=== PATIENT | male | born 1965 | race Caucasian/White ===

== ENCOUNTER 2017-01-25 16:25 | Emergency (ER) | payer BC ==
[~2017-01-25] VITALS: Ht 177.8 cm; Wt 89.3 kg
[~2017-01-25 16:25] MED LIST: ACET1TAB25 PO; ALBU18HF2 INH; ALBU2.5V7 AEROSOL; DIPH25TA23 PO; EPIN0.3P3 INJ; FLUT9.9S NS; FURO20TA4 PO; GABA-336 PO; IPRA3AMP INH; LORA10TA62 PO; MOME13HF3 INH; MORP15TA71 PO; PANT40TA27 PO; PRED20TA PO; RANI300T4 PO; TIZA4TAB4 PO; TRAM50TA4 PO; TRAZ-170 PO; TRIA1CAP6 PO; ZAFI20TA13 PO; [UNRECOGNIZED DRUG - CODE] PO; [UNRECOGNIZED DRUG - CODE] PO
[2017-01-25 16:30] VITALS: TEMP 97.6; Ht 177.8 cm; Wt 89.3 kg
--- OUTSIDE RECORDS SUMMARY | 2017-01-25 16:31 | XMS REPORT | Continuity of Care Document ---
Author Author [facility]ifatah [facility] Organization [facility] Address Unknown Phone Unavailable Support Name Relationship Address Phone ABBIE RAM MD Caregiver [address] [place] [address] [place] [id number] MAHIN FERNANDEZ DO Caregiver [address] [place] [address] PAOLA BHAKTA Next Of Kin [address] [facility], [place] [id number] Insurance Providers Payer Name Policy Number Subscriber Name Relationship [facility] [id number] Paola Bhakta 01 Spouse Advance Directives Directive Response Recorded Date/Time Advanced Directives Type None 02/11/15 4:37pm Problems Medical Problems Problem Onset Date Status ASTHMA EXACERBATION Unknown Active Anxiety state Unknown Active Medications Medication Dose Route Sig Days/Qty Instructions Order Date Discontinued Date Status Salmeterol Xinafoate/Fluticasone 1 Disk IH TWICE A DAY 08/24/1001/10 Discontinued Albuterol Sulfate 2.5 Mg IH DAILY 08/24/10 Active Hydrocodone/Acetaminophen 1 Tab PO THREE TIMES A DAY 02/11/15 Active Albuterol Sulfate 1 Puff INH 02/11/15 Active Furosemide 1 Tab PO DAILY 02/11/15 Active Theophylline Anhydrous 1 Tab PO DAILY 02/11/15 Active Prednisone 1 Tab PO THREE TIMES A DAY Take 1 tablet, by mouth, two times a day with meals. 02/11/15 Active Gabapentin 1 Tab PO THREE TIMES A DAY 02/11/15 Active Hydroxyzine HCl 1 Tab PO FOUR TIMES DAILY 02/11/15 Active Cyanocobalamin (Vitamin B-12) 1 Tab PO TWICE A DAY 02/11/15 Active Pyridoxine HCl 2 Tab PO DAILY 02/11/15 Active Cholecalciferol (Vitamin D3) 1 Tab PO TWICE A DAY 02/11/15 Active Epinephrine 10 Syringe SQ NEEDED For ANAPHYLAXIS 10 Qty 02/11/15 Active Social History No social history. Hospital Discharge Instructions No hospital discharge instructions. Plan of Care No plan of care. Functional Status Query Response Date Recorded Physical Hygiene Self February 11, 2015 4:37pm Disabilities None February 11, 2015 4:37pm Devices Used None February 11, 2015 4:37pm Dressing Self February 11, 2015 4:37pm Ambulation Self February 11, 2015 4:37pm Diet Self February 11, 2015 4:37pm Mental Status Alert February 11, 2015 8:04pm Disabilities None February 11, 2015 4:37pm Devices Used None February 11, 2015 4:37pm Physical Hygiene Self February 11, 2015 4:37pm Dressing Self February 11, 2015 4:37pm Ambulation Self February 11, 2015 4:37pm Diet Self February 11, 2015 4:37pm Allergies, Adverse Reactions, Alerts Allergen Type Severity Reaction Status Last Updated Penicillin Allergy Unknown Active 10/10/13 Immunizations Name Given Type Hx Influenza Vaccination Y fall 2013 Historical Hx Influenza Vaccination Y fall 2013 Historical Vital Signs Acute Vital Signs Vital Response Date/Time Temperature (Fahrenheit) 98.3 deg F (96.8 - 99.1) Temperature (Calculated Celsius) 36.92674 degrees C (36.0 - 37.3) Pulse Rate (adult) 106 bpm (60 - 100) Respiratory Rate 27 breaths/min (10 - 20) O2 Sat by Pulse Oximetry 94 % (90 - 100) Blood Pressure 151/62 mm Hg Height 5 ft 11 in Weight 206 lb Body Mass Index 28.0 kg/m^2 Results Test Source Date Result Interp. Ref. Range Comments Alanine Aminotransferase (ALT/SGPT) February 11, 2015 4:48pm 47 U/L N 21- 72 Albumin February 11, 2015 4:48pm 4.6 G/DL N 3.5-5.0 Albumin/Globulin Ratio February 11, 2015 4:48pm 1.6 RATIO N 1.1-2.2 Alkaline Phosphatase February 11, 2015 4:48pm 76 U/L N 38-126 Anion Gap February 11, 2015 4:48pm 14 MEQ/L N 5-15 Aspartate Amino Transf (AST/SGOT) February 11, 2015 4:48pm 29 U/L N 17-59 BUN/Creatinine Ratio February 11, 2015 4:48pm 24 RATIO N 6-26 Band Neutrophils # October 10, 2013 5:00pm 0.0 T/MM3 - Band Neutrophils % October 10, 2013 5:00pm 0.0 % N 0-6 Basophils # (Auto) February 11, 2015 4:48pm 0.1 T/MM3 N 0-0.2 Basophils # (Manual) October 10, 2013 5:00pm 0.0 T/MM3 N 0-0.2 Basophils % (Manual) October 10, 2013 5:00pm 0.0 % N 0-2 Basophils (%) (Auto) February 11, 2015 4:48pm 0.4 % N 0-2 Blood Urea Nitrogen February 11, 2015 4:48pm 24.0 MG/DL H 9-20 Calcium Level February 11, 2015 4:48pm 9.6 MG/DL N 8.4-10.2 Calculated Osmolality February 11, 2015 4:48pm 281 MOSM/KG H 261-280 Carbon Dioxide Level February 11, 2015 4:48pm 29 MEQ/L N 22-30 Chemistry Specimen Hemolysis February 11, 2015 4:48pm < 15 0-25 0-25: No Hemolysis.26-70: Slight Hemolysis - can falsely elevate K and Urine Protein. 71-285: Moderate Hemolysis - can falsely elevate K, Troponin I, CA 19-9, PTH, CSF GLucose, and Urine Protein, and can falsely decrease Phenytoin. 286-999: Gross Hemolysis - can falsely elevate K, Troponin I, CA 19-9, PTH, CSF Glucose, and Urine Protine, and can falsely decrease Phenytoin. Recommend specimen recollection. Chloride Level February 11, 2015 4:48pm 101 MEQ/L N 98-107 Creatinine February 11, 2015 4:48pm 1.0 MG/DL N 0.8-1.5 Eosinophils # (Auto) February 11, 2015 4:48pm 0.1 T/MM3 N 0-0.5 Eosinophils # (Manual) October 10, 2013 5:00pm 0.3 T/MM3 N 0-0.5 Eosinophils % (Manual) October 10, 2013 5:00pm 2.0 % N 0-4 Eosinophils (%) (Auto) February 11, 2015 4:48pm 1.2 % N 0-4 Globulin February 11, 2015 4:48pm 2.8 G/DL N 2.4-3.6 Glomerular Filtration Rate Calc February 11, 2015 4:48pm 79 - Glucose Level February 11, 2015 4:48pm 98 MG/DL N 75-110 Hematocrit February 11, 2015 4:48pm 39.2 % L 41-53 Hemoglobin February 11, 2015 4:48pm 13.9 GM/DL N 13.5-17.5 Icterus Index February 11, 2015 4:48pm < 2 0-7 Immature Granulocyte # (Auto) February 11, 2015 4:48pm 0.04 T/MM3 H 0.00- 0.03 Immature Granulocyte % (Auto) February 11, 2015 4:48pm 0.4 % N 0.0-0.5 Lymphocytes # (Auto) February 11, 2015 4:48pm 2.6 T/MM3 N 1-4.8 Lymphocytes # (Manual) October 10, 2013 5:00pm 2.0 T/MM3 N 1-4.8 Lymphocytes % (Manual) October 10, 2013 5:00pm 13.0 % L 23-45 Lymphocytes (%) (Auto) February 11, 2015 4:48pm 23.3 % N 23-45 Magnesium Level February 11, 2015 4:48pm 2.2 MG/DL N 1.6-2.3 Mean Corpuscular Hemoglobin February 11, 2015 4:48pm 30.0 UUG N 26-34 Mean Corpuscular Hemoglobin Concent February 11, 2015 4:48pm 35.5 GM/DL N 31-37 Mean Corpuscular Volume February 11, 2015 4:48pm 84.7 UM3 N 80-100 Mean Platelet Volume February 11, 2015 4:48pm 9.8 UM3 N 9.4-12.4 Monocytes # (Auto) February 11, 2015 4:48pm 1.1 T/MM3 H 0-0.8 Monocytes # (Manual) October 10, 2013 5:00pm 0.5 T/MM3 N 0-0.8 Monocytes % (Manual) October 10, 2013 5:00pm 3.0 % N 0-9.0 Monocytes (%) (Auto) February 11, 2015 4:48pm 9.9 % H 0-9.0 Neutrophils # (Auto) February 11, 2015 4:48pm 7.3 T/MM3 N 1.8-7.7 Neutrophils # (Manual) October 10, 2013 5:00pm 12.1 T/MM3 H 1.8-7.7 Neutrophils % (Manual) October 10, 2013 5:00pm 78.0 % H 33-66 Neutrophils (%) (Auto) February 11, 2015 4:48pm 64.8 % N 33-66 Platelet Count February 11, 2015 4:48pm 311 T/MM3 N 130-400 Potassium Level February 11, 2015 4:48pm 3.6 MEQ/L N 3.6-5 RDW Standard Deviation February 11, 2015 4:48pm 42.3 FL N 36.9-50.2 Reactive Lymphocytes # October 10, 2013 5:00pm 0.6 T/MM3 H 0-0 Reactive Lymphocytes % October 10, 2013 5:00pm 4.0 % H 0-0 Red Blood Count February 11, 2015 4:48pm 4.63 M/MM3 N 4.50-5.90 Sodium Level February 11, 2015 4:48pm 144 MEQ/L N 134-144 Total Bilirubin February 11, 2015 4:48pm 0.60 MG/DL N 0.20-1.30 Total Protein February 11, 2015 4:48pm 7.4 G/DL N 6.3-8.2 Turbidity February 11, 2015 4:48pm 26 H 0-20 0-21: Turbidity not present.22-999: Turbidity present - Gross turbidity can falsely decrease Lipase and Triglycerides. White Blood Count February 11, 2015 4:48pm 11.2 T/MM3 H 4.5-11.0 Procedures No known history of procedures. Encounters Encounter Location Date/Time Departed Emergency Room [facility] 02/11/15 4:36pm Recent Diagnosis
--- OUTSIDE RECORDS SUMMARY | 2017-01-25 16:34 | XMS REPORT | Continuity of Care Document ---
Author Author [facility] Organization [facility] Address Unknown Phone Unavailable Support Name Relationship Address Phone MAHIN FERNANDEZ DO Caregiver [address] [place] [address] Unavailable BIANCA CROSS MD Caregiver [address] [place] [address] [place] [address] Unavailable PAOLA BHAKTA Next Of Kin [address] [place] [address] Insurance Providers Guarantor Bob Bhakta Address [address] [place] [address] Email [email or web address] Payer [facility] Policy Number [id number] Subscriber's Name Paola Bhakta Relationship 01 Spouse Group Number [id number] Chief Complaint and Reason for Visit Chief Complaint Dyspnea/Respdistress Reason for Visit [id number] EXACERBATION Problems Active Problems Medical Problem Onset Date Status ASTHMA EXACERBATION Unknown Acute Allergic to IV contrast Unknown Acute Anxiety Unknown Anxiety state Unknown Acute Low back pain Unknown Acute Sinusitis Unknown Acute Spondylolisthesis at L4-L5 level Unknown Acute Viral syndrome Unknown Acute Past Problems Medical Problem Onset Date Anxiety Unknown Asthma exacerbation Unknown Asthma with severe asthma attack Unknown Chest wall pain Unknown Concussion Unknown Exacerbation of asthma Unknown Exacerbation of asthma Unknown Exacerbation of asthma Unknown Head trauma Unknown Intracranial bleed Unknown Pneumonia Unknown Pneumonia Unknown Respiratory disorder, unspecified Unknown Viral gastroenteritis Unknown Medications Current Home Medications Medication Dose Units Route Directions Days Qty Instructions Start Date Acetaminophen With Codeine (Acetaminophen-Cod #3 Tablet) 300-30 Tablet 1 Tab Oral Twice A Day 01/19/17 Albuterol Sulfate 2.5 Mg/3 Ml Vial.neb 2.5 Mg Aerosol Tx. As Needed as needed for Shortness Of Air/Wheezing 01/19/17 Albuterol Sulfate (Ventolin Hfa 90 Mcg/Actuation) 18 Gm Hfa.aer.ad 2 Puff Inhalation Every 4-6 Hours as needed for Shortness Of Air 02/02/16 Diphenhydramine Hcl 25 Mg Tablet 50 Mg Oral Four Times Daily Epinephrine (Epipen 2-Alexis) 0.3 Mg/0.3 Ml Auto.injct 0.3 Mg Injection As Needed 06/09/15 Fluticasone Propionate (Flonase Allergy Relief 50 Mcg/Actuation Nasal) 9.9 Ml Quitman.susp 2 Quitman Nasal Daily 12/06/16 Furosemide 20 Mg Tablet 20 Mg Oral Daily 10/05/15 Gabapentin 100 Mg Capsule 200 Mg Oral Twice A Day 12/06/16 Ipratropium/Albuterol Sulfate (Iprat-Albut 0.5-3(2.5) Mg/3 Ml) 3 Ml Ampul.neb 1 Vial Inhalation Four Times Daily 12/24/15 Loratadine (Claritin) 10 Mg Tablet 10 Mg Oral Daily 12/06/16 Mometasone/Formoterol (Dulera 200 Mcg/5 Mcg Inhaler) 13 Gm Hfa.aer.ad 2 Puff Inhalation Twice A Day 07/13/16 Morphine Sulfate 15 Mg Tablet 7.5 Mg Oral Twice A Day 12/06/16 Pantoprazole Sodium 40 Mg Tablet.dr 40 Mg Oral Daily 09/06/16 Prednisone 20 Mg Tablet 40 Mg Oral Daily 01/19/17 Ranitidine Hcl 300 Mg Tablet 300 Mg Oral Bedtime 12/06/16 Testosterone (Testim) 5 Gm Gel..gram. 50 Mg Oral Daily 12/06/16 Theophylline Anhydrous (Theophylline) 600 Mg Tablet.er 600 Mg Oral Daily 02/11/15 Tizanidine Hcl 4 Mg Tablet 4 Mg Oral Three Times A Day 09/06/16 Tramadol Hcl 50 Mg Tablet 50 Mg Oral Three Times A Day as needed for Pain 12/06/16 Trazodone Hcl 50 Mg Tablet 50 Mg Oral Bedtime 12/06/16 Triamterene/Hydrochlorothiazid (Triamterene-Hctz 37.5-25 Mg Cp) 1 Each Capsule 1 Tab Oral Daily 09/06/16 Zafirlukast (Accolate) 20 Mg Tablet 40 Mg Oral Twice A Day Past Home Medications Medication Directions Ordered Status Azithromycin (Zithromax) 250 Mg Tablet, 1 Tab Oral Daily 06/18/15 Discontinued Epinephrine (Epipen 2-Alexis) 0.3 Mg/0.3 Ml Auto.injct, 10 Syringe Sub-Q As Needed for Anaphylaxis 02/11/15 Discontinued Gabapentin 600 Mg Tablet, 1 Tab Oral Three Times A Day 02/11/15 Discontinued Hydrocodone/Acetaminophen (Hydrocodon-Acetaminoph 7.5-325) 7.5-325 Tablet, 1 Tab Oral Twice A Day 07/13/16 Discontinued Prednisone 10 Mg Tablet, 10 Mg Oral As Directed 11/13/16 Discontinued Prednisone 10 Mg Tablet, 10 Mg Oral As Directed 03/19/16 Discontinued Prednisone 10 Mg Tablet, 2 Tab Oral Give With Supper 05/07/15 Discontinued Prednisone 10 Mg Tablet, 50 Mg Oral Daily 05/07/15 Discontinued Ranitidine Hcl 300 Mg Tablet, 300 Mg Oral Bedtime 02/02/16 Discontinued Salmeterol Xinafoate/Fluticasone (Advair 500-50 Diskus) 1 Each Disk.w.dev, 1 Disk Inhalation Twice A Day 08/24/10 Discontinued Zafirlukast (Accolate) 20 Mg Tablet, 4 Tab Oral Daily 07/31/15 Discontinued Social History Social History Problem Response Recorded Date/Time Onset Date Status Hx Substance Use No 01/19/2017 5:14pm Not Applicable Not Applicable Hx Alcohol Use Y OCC 01/19/2017 5:14pm Not Applicable Not Applicable Tobacco Usage none 02/18/2015 6:26pm Not Applicable Not Applicable Query Response Start Date Stop Date Smoking Status Never smoker Hospital Discharge Instructions No hospital discharge instructions. Plan of Care Discharge Date 01/19/17 7:10pm Disposition 01 DISCHARGED HOME, SELF-CARE Condition at Discharge Improved Instructions/Education Provided Asthma (ED) Prescriptions See Medication Section Referrals MAHIN FERNANDEZ DO Address: [place] [address] [place] [id number] Care Plan and Goals Physician Care Plan Problem: Exacerbation of asthma Goal: Follow up with primary care provider Instructions: Take medications and follow care plan as discussed/written Functional Status No functional status results. Allergies, Adverse Reactions, Alerts Allergen Type Severity Reaction Status Last Updated Penicillin Allergy Unknown Active 01/19/17 Aspirin Allergy Unknown Active 01/19/17 BEE/WASP STINGS Allergy Unknown ANAPHYLAXIS Active 12/06/16 GUACAMOLE Allergy Severe DYSNEA Active 07/31/15 Immunizations Query Response on File Recorded Date/Time Hx Influenza Vaccination Y fall 201308/05/15 2:30pm Hx Pneumococcal Vaccination Y WITHIN LAST 5 YEARS 08/05/15 2:30pm Hx Influenza Vaccination Y fall 201308/05/15 2:30pm DTaP Vaccine History 200901/19/17 5:14pm Influenza Vaccine Hx 201501/19/17 5:14pm Tdap Vaccine Hx NO BROKEN SKIN 06/08/16 9:23pm Vital Signs Acute Vital Signs Vital Response Date/Time Temperature (Fahrenheit) 97.3 deg F (96.8 - 99.1) 01/19/2017 7:10pm Temperature (Calculated Celsius) 36.22213 degrees C (36.0 - 37.3) 01/19/2017 7:10pm Pulse Rate (adult) 113 bpm (60 - 100) 01/19/2017 7:10pm Respiratory Rate 18 breaths/min (10 - 20) 01/19/2017 7:10pm O2 Sat by Pulse Oximetry 93 % (90 - 100) 01/19/2017 7:10pm Oxygen Flow Rate 10.00 L/min 01/19/2017 6:45pm Blood Pressure 130/68 mm Hg 01/19/2017 7:10pm Blood Pressure 130/68 mm Hg 01/19/2017 7:10pm Height (Feet) 5 feet 01/19/2017 4:28pm Height (Inches) 10.00 inches 01/19/2017 4:28pm Weight (Kilograms) 94.500 kg 01/19/2017 4:28pm Body Mass Index (BMI) 29.0 01/19/2017 4:28pm Results Laboratory Results Test Name Result Units Flags Reference Collection Date/Time Result Date/ Time Comments White Blood Count 9.5 T/MM3 4.5-11.0 11/13/2016 3:55pm 11/13/2016 4: 18pm Red Blood Count 4.68 M/MM3 4.50-5.90 11/13/2016 3:55pm 11/13/2016 4: 18pm Hemoglobin 14.6 GM/DL 13.5-17.5 11/13/2016 3:55pm 11/13/2016 4:18pm Hematocrit 40.9 % L 41-53 11/13/2016 3:55pm 11/13/2016 4:18pm Mean Corpuscular Volume 87.4 UM3 80-100 11/13/2016 3:55pm 11/13/2016 4: 18pm Mean Corpuscular Hemoglobin 31.2 UUG 26-34 11/13/2016 3:55pm 2016 4:18pm Mean Corpuscular Hemoglobin Concent 35.7 GM/DL 31-37 11/13/2016 3:55pm 11/13/2016 4:18pm RDW Standard Deviation 39.1 FL 36.9-50.2 11/13/2016 3:55pm 11/13/2016 4 :18pm Platelet Count 248 T/MM3 130-400 11/13/2016 3:55pm 11/13/2016 4:18pm Mean Platelet Volume 9.7 UM3 9.4-12.4 11/13/2016 3:55pm 11/13/2016 4: 18pm Neutrophils (%) (Auto) 66.3 % H 33-66 11/13/2016 3:55pm 11/13/2016 4: 18pm Lymphocytes (%) (Auto) 23.1 % 23-45 11/13/2016 3:55pm 11/13/2016 4: 18pm Monocytes (%) (Auto) 8.3 % 0-9.0 11/13/2016 3:55pm 11/13/2016 4:18pm Eosinophils (%) (Auto) 1.3 % 0-4 11/13/2016 3:55pm 11/13/2016 4:18pm Basophils (%) (Auto) 0.5 % 0-2 11/13/2016 3:55pm 11/13/2016 4:18pm Immature Granulocyte % (Auto) 0.5 % 0.0-0.5 11/13/2016 3:55pm 2016 4:18pm Absolute Neutrophils (auto) 6.3 T/MM3 1.8-7.7 11/13/2016 3:55pm 2016 4:18pm Absolute Lymphocytes (auto) 2.2 T/MM3 1-4.8 11/13/2016 3:55pm 2016 4:18pm Absolute Monocytes (auto) 0.8 T/MM3 0-0.8 11/13/2016 3:55pm 11/13/2016 4:18pm Absolute Eosinophils (auto) 0.1 T/MM3 0-0.5 11/13/2016 3:55pm 2016 4:18pm Absolute Basophils (auto) 0.1 T/MM3 0-0.2 11/13/2016 3:55pm 11/13/2016 4:18pm Absolute Immature Granulocyte (auto 0.05 T/MM3 H 0.00-0.03 11/13/2016 3: 55pm 11/13/2016 4:18pm Icterus Index < 2 0-7 11/13/2016 3:55pm 11/13/2016 4:25pm Chemistry Specimen Hemolysis < 15 0-25 11/13/2016 3:55pm 11/13/2016 4 :25pm 0-25: Specimen Exhibited No Hemolysis. Turbidity < 20 0-20 11/13/2016 3:55pm 11/13/2016 4:25pm Sodium Level 144 MEQ/L 134-144 11/13/2016 3:55pm 11/13/2016 4:25pm Potassium Level 3.3 MEQ/L L 3.6-5 11/13/2016 3:55pm 11/13/2016 4:25pm Chloride Level 103 MEQ/L 98-107 11/13/2016 3:55pm 11/13/2016 4:25pm Carbon Dioxide Level 28 MEQ/L 22-30 11/13/2016 3:55pm 11/13/2016 4: 25pm Anion Gap 13 MEQ/L 5-15 11/13/2016 3:55pm 11/13/2016 4:25pm Blood Urea Nitrogen 13.0 MG/DL 9-20 11/13/2016 3:55pm 11/13/2016 4: 25pm Creatinine 1.0 MG/DL 0.8-1.5 11/13/2016 3:55pm 11/13/2016 4:25pm BUN/Creatinine Ratio 13 RATIO 6-26 11/13/2016 3:55pm 11/13/2016 4:25pm Glomerular Filtration Rate Calc 78 11/13/2016 3:55pm 11/13/2016 4: 25pm Glucose Level 99 MG/DL 75-110 11/13/2016 3:55pm 11/13/2016 4:25pm Calculated Osmolality 277 MOSM/KG 261-280 11/13/2016 3:55pm 11/13/2016 4:25pm Calcium Level 9.8 MG/DL 8.4-10.2 11/13/2016 3:55pm 11/13/2016 4:25pm Total Bilirubin 0.60 MG/DL 0.20-1.30 11/13/2016 3:55pm 11/13/2016 4: 25pm Alkaline Phosphatase 76 U/L 38-126 11/13/2016 3:55pm 11/13/2016 4:25pm Total Protein 7.0 G/DL 6.3-8.2 11/13/2016 3:55pm 11/13/2016 4:25pm Albumin 4.5 G/DL 3.5-5.0 11/13/2016 3:55pm 11/13/2016 4:25pm Globulin 2.5 G/DL 2.4-3.6 11/13/2016 3:55pm 11/13/2016 4:25pm Albumin/Globulin Ratio 1.8 RATIO 1.1-2.2 11/13/2016 3:55pm 11/13/2016 4 :25pm Aspartate Amino Transf (AST/SGOT) 30 U/L 17-59 11/13/2016 3:55pm 2016 4:25pm Alanine Aminotransferase (ALT/SGPT) 42 U/L 21-72 11/13/2016 3:55pm 06/2017 4:25pm Arterial Blood pH 7.470 H 7.350-7.450 12/06/2016 3:40pm 12/06/2016 3: 53pm Arterial Blood Partial Pressure CO2 41 MMHG 34-45 12/06/2016 3:40pm 3:53pm Arterial Blood pO2 at Patient Temp 62 MMHG L 80-100 12/06/2016 3:40pm 3:53pm Arterial Blood HCO3 30 MEQ/L H 22-26 12/06/2016 3:40pm 12/06/2016 3: 53pm Arterial Blood Total CO2 31.1 MEQ/L H 23-27 12/06/2016 3:40pm 2016 3:53pm Arterial Blood Base Excess 5.6 MMOL/L H -2.0-2.0 12/06/2016 3:40pm 12/06 3:53pm Arterial Blood Oxygen Saturation 93.0 % L 95.0-98.0 12/06/2016 3:40pm 3:53pm Blood Gas Oxygen Percent Given 80 12/06/2016 3:40pm 12/06/2016 3: 53pm Oxygen Delivery Method (LAB) SIMPLE MASK, % 12/06/2016 3:40pm 12/06 3:53pm Adenovirus (PCR) NEGATIVE NEGATIVE 12/28/2016 8:16pm 12/28/2016 9: 54pm Coronavirus Type 229E (PCR) NEGATIVE NEGATIVE 12/28/2016 8:16pm 12/28 9:54pm Coronavirus Type HKU1 (PCR) NEGATIVE NEGATIVE 12/28/2016 8:16pm 12/28 9:54pm Coronavirus Type NL63 (PCR) NEGATIVE NEGATIVE 12/28/2016 8:16pm 12/28 9:54pm Coronavirus Type OC43 (PCR) NEGATIVE NEGATIVE 12/28/2016 8:16pm 12/28 9:54pm Human Metapneumovirus (PCR) NEGATIVE NEGATIVE 12/28/2016 8:16pm 12/28 9:54pm Enterovirus/Rhinovirus (PCR) NEGATIVE NEGATIVE 12/28/2016 8:16pm 9:54pm Influenza Virus Type A (PCR) DETECTED INF A H3 A NEGATIVE 12/28/2016 8: 16pm 12/28/2016 9:54pm Influenza Virus Type B (PCR) NEGATIVE NEGATIVE 12/28/2016 8:16pm 9:54pm Parainfluenza Type 1 (PCR) NEGATIVE NEGATIVE 12/28/2016 8:16pm 2016 9:54pm Parainfluenza Type 2 (PCR) NEGATIVE NEGATIVE 12/28/2016 8:16pm 2016 9:54pm Parainfluenza Type 3 (PCR) NEGATIVE NEGATIVE 12/28/2016 8:16pm 2016 9:54pm Parainfluenza Type 4 (PCR) NEGATIVE NEGATIVE 12/28/2016 8:16pm 2016 9:54pm Respiratory Syncytial Virus (PCR) NEGATIVE NEGATIVE 12/28/2016 8:16pm 12/28/2016 9:54pm Bordetella parapertussis DNA (PCR) NEGATIVE NEGATIVE 12/28/2016 8: 16pm 12/28/2016 9:54pm Chlamydia pneumoniae DNA (PCR) NEGATIVE NEGATIVE 12/28/2016 8:16pm 9:54pm Mycoplasma pneumoniae (PCR) NEGATIVE NEGATIVE 12/28/2016 8:16pm 12/28 9:54pm Procedures Procedure Status Date Provider(s) Airway inhalation treatment Completed 12/29/16 Airway inhalation treatment Completed 11/03/16 Ther/proph/diag iv inf init Completed 11/03/16 Ther/proph/diag inj sc/im Completed 11/03/16 Tx/pro/dx inj new drug addon Completed 11/03/16 Tx/pro/dx inj new drug addon Completed 11/03/16 Tx/pro/dx inj new drug addon Completed 11/03/16 Tx/pro/dx inj new drug addon Completed 11/03/16 Tx/pro/dx inj new drug addon Completed 11/03/16 Tx/pro/dx inj same drug condenser tester Completed 11/03/16 Tx/pro/dx inj same drug condenser tester Completed 11/03/16 Emergency dept visit Completed 11/03/16 EPINEPHRINE MDV 1MG/ML 30ML Completed 11/03/16267089"INJECTION, HYDROMORPHONE, UP TO 4 MG" Completed 11/03/16337627"INJECTION, HYDROMORPHONE, UP TO 4 MG" Completed 11/03/16140306"INJECTION, DIPHENHYDRAMINE HCL, UP TO 50 MG" Completed 11/03/16991480"INJECTION, DIPHENHYDRAMINE HCL, UP TO 50 MG" Completed 11/03/16936431"INJECTION, HEPARIN SODIUM, (HEPARIN LOCK FLUSH), PER Completed 003"INJECTION, LORAZEPAM, 2 MG" Completed 11/03/16609136"INJECTION, METHYLPREDNISOLONE SODIUM SUCCINATE, UP TO Completed 003"INJECTION, MAGNESIUM SULFATE, PER 500 MG" Completed 11/03/16567987"INFUSION, NORMAL SALINE SOLUTION , 250 CC" Completed 11/03/16 545362"ADMINISTERED THROUGH DME, CONCENTRATED FORM, 1 MG" Completed 11/03/16 Comprehen metabolic panel Completed 11/13/16 Complete cbc w/auto diff wbc Completed 11/13/16 Cbt 1st hour Completed 11/13/16 Cbt each addl hour Completed 11/13/16 Cbt each addl hour Completed 11/13/16 Ther/proph/diag iv inf init Completed 11/13/16 Ther/proph/diag inj sc/im Completed 11/13/16 Ther/proph/diag inj sc/im Completed 11/13/16 Tx/pro/dx inj new drug addon Completed 11/13/16 Tx/pro/dx inj new drug addon Completed 11/13/16 Tx/pro/dx inj new drug addon Completed 11/13/16 Tx/pro/dx inj same drug condenser tester Completed 11/13/16 Tx/pro/dx inj same drug condenser tester Completed 11/13/16 Emergency dept visit Completed 11/13/16 EPINEPHRINE MDV 1MG/ML 30ML Completed 11/13/16 EPINEPHRINE MDV 1MG/ML 30ML Completed 11/13/16 845131"INJECTION, HYDROMORPHONE, UP TO 4 MG" Completed 11/13/16 462000"INJECTION, HYDROMORPHONE, UP TO 4 MG" Completed 11/13/16626249"INJECTION, DIPHENHYDRAMINE HCL, UP TO 50 MG" Completed 11/13/16680077"INJECTION, DIPHENHYDRAMINE HCL, UP TO 50 MG" Completed 11/13/16 329885"INJECTION, HEPARIN SODIUM, (HEPARIN LOCK FLUSH), PER Completed 973740"INJECTION, METHYLPREDNISOLONE SODIUM SUCCINATE, UP TO Completed 883294"INJECTION, MAGNESIUM SULFATE, PER 500 MG" Completed 11/13/16 697486"INJECTION, MAGNESIUM SULFATE, PER 500 MG" Completed 11/13/16 187193"INFUSION, NORMAL SALINE SOLUTION , 1000 CC" Completed 11/13/16 3356646% DEXTROSE/WATER (500 ML=1 UNIT) Completed 11/13/16 8879364% DEXTROSE/WATER (500 ML=1 UNIT) Completed 11/13/16 993732"ADMINISTERED THROUGH DME, CONCENTRATED FORM, 1 MG" Completed 11/13/16 477990"ADMINISTERED THROUGH DME, CONCENTRATED FORM, 1 MG" Completed 11/13/16 366822"ADMINISTERED THROUGH DME, CONCENTRATED FORM, 1 MG" Completed 11/13/16 260095"ADMINISTERED THROUGH DME, CONCENTRATED FORM, 1 MG" Completed 11/13/16 377096"ADMINISTERED THROUGH DME, CONCENTRATED FORM, 1 MG" Completed 11/13/16 Withdrawal of arterial blood Completed 12/06/16 Chest x-ray 1 view frontal Completed 12/06/16 Blood gases any combination Completed 12/06/16 Cbt 1st hour Completed 12/06/16 Ther/proph/diag iv inf init Completed 12/06/16 Ther/proph/diag inj sc/im Completed 12/06/16 Ther/proph/diag inj sc/im Completed 12/06/16 Tx/pro/dx inj new drug addon Completed 12/06/16 Tx/pro/dx inj new drug addon Completed 12/06/16 Tx/pro/dx inj same drug condenser tester Completed 12/06/16 Emergency dept visit Completed 12/06/16 EPINEPHRINE MDV 1MG/ML 30ML Completed 12/06/16936823"INJECTION, DIPHENHYDRAMINE HCL, UP TO 50 MG" Completed 12/06/16"INJECTION, DIPHENHYDRAMINE HCL, UP TO 50 MG" Completed 12/06/16"INJECTION, HEPARIN SODIUM, (HEPARIN LOCK FLUSH), PER Completed "INJECTION, KETOROLAC TROMETHAMINE, PER 15 MG" Completed 12/06/16"INJECTION, METHYLPREDNISOLONE SODIUM SUCCINATE, UP TO Completed "INJECTION, MAGNESIUM SULFATE, PER 500 MG" Completed 12/06/165% DEXTROSE/WATER (500 ML=1 UNIT) Completed 12/06/16 Cbt 1st hour Completed 12/12/16 Cbt each addl hour Completed 12/12/16 Ther/proph/diag iv inf init Completed 12/12/16 Ther/proph/diag inj sc/im Completed 12/12/16 Tx/pro/dx inj new drug addon Completed 12/12/16 Tx/pro/dx inj new drug addon Completed 12/12/16 Tx/pro/dx inj new drug addon Completed 12/12/16 Tx/pro/dx inj new drug addon Completed 12/12/16 Tx/pro/dx inj new drug addon Completed 12/12/16 Tx/pro/dx inj new drug addon Completed 12/12/16 Tx/pro/dx inj new drug addon Completed 12/12/16 Tx/pro/dx inj same drug condenser tester Completed 12/12/16 Emergency dept visit Completed 12/12/16 EPINEPHRINE MDV 1MG/ML 30ML Completed 12/12/16624961"INJECTION, HYDROMORPHONE, UP TO 4 MG" Completed 12/12/16"INJECTION, DIPHENHYDRAMINE HCL, UP TO 50 MG" Completed 12/12/16"INJECTION, DIPHENHYDRAMINE HCL, UP TO 50 MG" Completed 12/12/16"INJECTION, LORAZEPAM, 2 MG" Completed 12/12/16"INJECTION, ONDANSETRON HYDROCHLORIDE, PER 1 MG" Completed 12/12/16"INJECTION, METHYLPREDNISOLONE SODIUM SUCCINATE, UP TO Completed "INJECTION, FENTANYL CITRATE, 0.1 MG" Completed 12/12/16"INJECTION, MAGNESIUM SULFATE, PER 500 MG" Completed 12/12/16"INJECTION, MAGNESIUM SULFATE, PER 500 MG" Completed 12/12/165% DEXTROSE/WATER (500 ML=1 UNIT) Completed 12/12/16 6953852% DEXTROSE/WATER (500 ML=1 UNIT) Completed 12/12/16 Airway inhalation treatment Completed 12/21/16 Airway inhalation treatment Completed 12/21/16 Ther/proph/diag iv inf init Completed 12/21/16 Ther/proph/diag iv inf addon Completed 12/21/16 Ther/proph/diag inj sc/im Completed 12/21/16 Tx/pro/dx inj new drug addon Completed 12/21/16 Tx/pro/dx inj new drug addon Completed 12/21/16 Tx/pro/dx inj new drug addon Completed 12/21/16 Tx/pro/dx inj new drug addon Completed 12/21/16 Tx/pro/dx inj new drug addon Completed 12/21/16 Tx/pro/dx inj same drug condenser tester Completed 12/21/16 Tx/pro/dx inj same drug condenser tester Completed 12/21/16 Emergency dept visit Completed 12/21/16 EPINEPHRINE MDV 1MG/ML 30ML Completed 12/21/16"INJECTION, HYDROMORPHONE, UP TO 4 MG" Completed 12/21/16"INJECTION, DIPHENHYDRAMINE HCL, UP TO 50 MG" Completed 12/21/16"INJECTION, DIPHENHYDRAMINE HCL, UP TO 50 MG" Completed 12/21/16"INJECTION, HEPARIN SODIUM, (HEPARIN LOCK FLUSH), PER Completed "INJECTION, LORAZEPAM, 2 MG" Completed 12/21/16"INJECTION, LORAZEPAM, 2 MG" Completed 12/21/16"INJECTION, METHYLPREDNISOLONE SODIUM SUCCINATE, UP TO Completed 02/15/ 17 534658"INJECTION, MAGNESIUM SULFATE, PER 500 MG" Completed 12/21/16 9082452% DEXTROSE/WATER (500 ML=1 UNIT) Completed 12/21/16 Chest x-ray 2vw frontal&latl Completed 12/23/16 Cbt 1st hour Completed 12/23/16 Ther/proph/diag iv inf init Completed 12/23/16 Ther/proph/diag inj sc/im Completed 12/23/16 Tx/pro/dx inj new drug addon Completed 12/23/16 Tx/pro/dx inj new drug addon Completed 12/23/16 Tx/pro/dx inj new drug addon Completed 12/23/16 Tx/pro/dx inj new drug addon Completed 12/23/16 Tx/pro/dx inj same drug condenser tester Completed 12/23/16 Tx/pro/dx inj same drug condenser tester Completed 12/23/16 Tx/pro/dx inj same drug condenser tester Completed 12/23/16 Emergency dept visit Completed 12/23/16 EPINEPHRINE MDV 1MG/ML 30ML Completed 12/23/16064968"INJECTION, HYDROMORPHONE, UP TO 4 MG" Completed 12/23/16509762"INJECTION, HYDROMORPHONE, UP TO 4 MG" Completed 12/23/16089452"INJECTION, DIPHENHYDRAMINE HCL, UP TO 50 MG" Completed 12/23/16074209"INJECTION, DIPHENHYDRAMINE HCL, UP TO 50 MG" Completed 12/23/16628180"INJECTION, DIPHENHYDRAMINE HCL, UP TO 50 MG" Completed 12/23/16412548"INJECTION, HEPARIN SODIUM, (HEPARIN LOCK FLUSH), PER Completed 003"INJECTION, LORAZEPAM, 2 MG" Completed 12/23/16811006"INJECTION, METHYLPREDNISOLONE SODIUM SUCCINATE, UP TO Completed 003"INJECTION, METHYLPREDNISOLONE SODIUM SUCCINATE, UP TO Completed 003"INJECTION, MAGNESIUM SULFATE, PER 500 MG" Completed 12/23/16 9263490% DEXTROSE/WATER (500 ML=1 UNIT) Completed 12/23/16 Chylmd pneum dna amp probe Completed 12/28/16 M.pneumon dna amp probe Completed 12/28/16 Resp virus 12-25 targets Completed 12/28/16 Detect agent nos dna amp Completed 12/28/16 Cbt 1st hour Completed 12/28/16 Cbt each addl hour Completed 12/28/16 Cbt each addl hour Completed 12/28/16 Hydrate iv infusion add-on Completed 12/28/16 Ther/proph/diag iv inf init Completed 12/28/16 Ther/proph/diag inj sc/im Completed 12/28/16 Tx/pro/dx inj new drug addon Completed 12/28/16 Tx/pro/dx inj new drug addon Completed 12/28/16 Tx/pro/dx inj new drug addon Completed 12/28/16 Tx/pro/dx inj new drug addon Completed 12/28/16 Tx/pro/dx inj new drug addon Completed 12/28/16 Tx/pro/dx inj new drug addon Completed 12/28/16 Tx/pro/dx inj new drug addon Completed 12/28/16 Tx/pro/dx inj same drug condenser tester Completed 12/28/16 Emergency dept visit Completed 12/28/16 EPINEPHRINE MDV 1MG/ML 30ML Completed 12/28/16929348"INJECTION, HYDROMORPHONE, UP TO 4 MG" Completed 12/28/16"INJECTION, DIPHENHYDRAMINE HCL, UP TO 50 MG" Completed 12/28/16"INJECTION, DIPHENHYDRAMINE HCL, UP TO 50 MG" Completed 12/28/16"INJECTION, KETOROLAC TROMETHAMINE, PER 15 MG" Completed 12/28/16"INJECTION, LORAZEPAM, 2 MG" Completed 12/28/16"INJECTION, METHYLPREDNISOLONE SODIUM SUCCINATE, UP TO Completed "INJECTION, FENTANYL CITRATE, 0.1 MG" Completed 12/28/16"INJECTION, MAGNESIUM SULFATE, PER 500 MG" Completed 12/28/16224018"INFUSION, NORMAL SALINE SOLUTION , 1000 CC" Completed 12/28/16955017"INFUSION, NORMAL SALINE SOLUTION , 250 CC" Completed 12/28/16378926"ADMINISTERED THROUGH DME, CONCENTRATED FORM, 1 MG" Completed 12/28/16667354"ADMINISTERED THROUGH DME, CONCENTRATED FORM, 1 MG" Completed 12/28/16 Chest x-ray 2vw frontal&latl Completed 01/09/17 Cbt 1st hour Completed 01/09/17 Cbt each addl hour Completed 01/09/17 Cbt each addl hour Completed 01/09/17 Cbt each addl hour Completed 01/09/17 Hydrate iv infusion add-on Completed 01/09/17 Hydrate iv infusion add-on Completed 01/09/17 Hydrate iv infusion add-on Completed 01/09/17 Ther/proph/diag iv inf init Completed 01/09/17 Ther/proph/diag inj sc/im Completed 01/09/17 Ther/proph/diag inj sc/im Completed 01/09/17 Tx/pro/dx inj new drug addon Completed 01/09/17 Tx/pro/dx inj new drug addon Completed 01/09/17 Tx/pro/dx inj new drug addon Completed 01/09/17 Tx/pro/dx inj new drug addon Completed 01/09/17 Tx/pro/dx inj new drug addon Completed 01/09/17 Tx/pro/dx inj same drug condenser tester Completed 01/09/17 Tx/pro/dx inj same drug condenser tester Completed 01/09/17 Tx/pro/dx inj same drug condenser tester Completed 01/09/17 Tx/pro/dx inj same drug condenser tester Completed 01/09/17 Emergency dept visit Completed 01/09/17 EPINEPHRINE MDV 1MG/ML 30ML Completed 01/09/17 EPINEPHRINE MDV 1MG/ML 30ML Completed 01/09/17"INJECTION, HYDROMORPHONE, UP TO 4 MG" Completed 01/09/17"INJECTION, HYDROMORPHONE, UP TO 4 MG" Completed 01/09/17"INJECTION, HYDROMORPHONE, UP TO 4 MG" Completed 01/09/17"INJECTION, DIPHENHYDRAMINE HCL, UP TO 50 MG" Completed 01/09/17"INJECTION, DIPHENHYDRAMINE HCL, UP TO 50 MG" Completed 01/09/17"INJECTION, DIPHENHYDRAMINE HCL, UP TO 50 MG" Completed 01/09/17"INJECTION, DIPHENHYDRAMINE HCL, UP TO 50 MG" Completed 01/09/17"INJECTION, HEPARIN SODIUM, (HEPARIN LOCK FLUSH), PER Completed "INJECTION, LORAZEPAM, 2 MG" Completed 03/06/17 [id number]"INJECTION, METHYLPREDNISOLONE SODIUM SUCCINATE, UP TO Completed [id number]"INJECTION, MAGNESIUM SULFATE, PER 500 MG" Completed 01/09/17 [id number]"INFUSION, NORMAL SALINE SOLUTION , 1000 CC" Completed 01/09/17 [id number]"INFUSION, NORMAL SALINE SOLUTION , 250 CC" Completed 01/09/17 [id number]"ADMINISTERED THROUGH DME, CONCENTRATED FORM, 1 MG" Completed 01/09/17 [id number]"ADMINISTERED THROUGH DME, CONCENTRATED FORM, 1 MG" Completed 01/09/17 Encounters Encounter Location Arrival/Admit Date Discharge/Depart Date Attending Provider Departed Emergency Room [facility] 01/19/17 4:26pm 01/19/17 7: 10pm BIANCA CROSS MD Departed Emergency Room [facility] 01/09/17 7:00pm 01/09/17 10: 25pm BIANCA CROSS MD Departed Emergency Room [facility] 12/28/16 7:16pm 12/28/16 10: 38pm VANIA ALEJANDRO DO Departed Emergency Room [facility] 12/23/16 8:51pm 12/24/16 12: 33am BULMARO ZARAGOZA MD Departed Emergency Room [facility] 12/21/16 3:54am 12/21/16 7: 30am BULMARO ZARAGOZA MD Departed Emergency Room [facility] 12/12/16 4:28pm 12/12/16 8: 57pm JORGE LUIS NUNO DO Departed Emergency Room [facility] 12/06/16 3:20pm 12/06/16 5: 21pm JENNIFER ZELAYA MD Departed Emergency Room [facility] 11/13/16 3:44pm 11/13/16 6: 40pm MACARENA DUARTE MD Departed Emergency Room [facility] 11/03/16 5:50pm 11/03/16 8: 30pm BIANCA CROSS MD Recent Diagnosis
--- NOTE | 2017-01-25 16:38 | NUR ---
SOLU MEDROL IN AT THIS TIME. THROUGH POWER PORT THAT WAS ACCESSED. Addendum: 01/25/17 at 1832 by JESSICA CORRECTION: SOLU MEDROL WAS GIVEN [id number].
--- NOTE | 2017-01-25 16:41 | NUR ---
PROVIDER DR ZELAYA IN TO SEE PATIENT.
--- OUTSIDE RECORDS SUMMARY | 2017-01-25 16:51 | XMS REPORT | Continuity of Care Document ---
Author Author [facility] LIVE Organization [facility] LIVE Address Unknown Phone Unavailable Support Name Relationship Address Phone ABBIE RAM MD Caregiver [address] [place] [address] [place] [phone] MAHIN FERNANDEZ DO Caregiver [address] [place] [address] PAOLA BHAKTA Next Of Kin [address] [facility], [place] [id number] Insurance Providers Payer Name Policy Number Subscriber Name Relationship [facility] [id number] Paola Bhakta 01 Spouse Advance Directives Directive [...] F (96.8 - 99.1) Temperature (Calculated Celsius) [phone] degrees C (36.0 - 37.3) Pulse Rate [...] Encounters Encounter Location Date/Time Departed Emergency Room [facility] 02/11/15 4:36pm Recent Diagnosis
[2017-01-25] MEDS ORDERED: ALBUTEROL/IPRATROPIUM INHAL. 2.5mg-0.5mg/3ml Neb. AEROSOL ONE (17:00)
[2017-01-25] MEDS ORDERED: MAGNESIUM SULFATE IV ONE (17:00)
[2017-01-25] MEDS ORDERED: DiphenhydrAMINE 50 MG/ML INJECTION IV ONE (17:00)
[2017-01-25] MEDS ORDERED: NORMAL SALINE IV ONE (17:00)
[2017-01-25] MEDS: MAGNESIUM SULF 1gm / D5W 100ml 100 ML IV SCH ×2 (17:14→17:25)
[2017-01-25] MEDS ORDERED: EPINEPHRINE 1mg/ml INJECTION AMP IM ONE (17:15)
[2017-01-25 17:18] LABS: BASOPHILS # (AUTO) 0.1 T/MM3 (0-0.2); BASOPHILS % (AUTO) 0.5 % (0-2); EOSINOPHILS # (AUTO) 0.7 T/MM3 (0-0.5); EOSINOPHILS % (AUTO) 6.9 % (0-4); HCT - HEMATOCRIT 42.4 % (41-53); HGB - HEMOGLOBIN 14.8 GM/DL (13.5-17.5); IMMATURE GRANULOCYTE # (AUTO) 0.09 T/MM3 (0.00-0.03); IMMATURE GRANULOCYTE % (AUTO) 0.8 % (0.0-0.5); LYMPHOCYTES # (AUTO) 2.8 T/MM3 (1-4.8); LYMPHOCYTES % (AUTO) 26.2 % (23-45); MEAN CORPUSCULAR HGB 30.8 UUG (26-34); MEAN CORPUSCULAR HGB CONC(MCHC 34.9 GM/DL (31-37); MEAN CORPUSCULAR VOLUME 88.3 UM3 (80-100); MEAN PLATELET VOLUME 9.4 UM3 (9.4-12.4); MONOCYTES # (AUTO) 0.8 T/MM3 (0-0.8); MONOCYTES % (AUTO) 7.1 % (0-9.0); NEUTROPHILS #(AUTO)-ABSOLUTE 6.2 T/MM3 (1.8-7.7); NEUTROPHILS % (AUTO) 58.5 % (33-66); WBC - WHITE BLOOD COUNT 10.6 T/MM3 (4.5-11.0)
[2017-01-25 17:29] LABS: ALBUMIN 4.4 G/DL (3.5-5.0); ALBUMIN/GLOBULIN RATIO 1.6 RATIO (1.1-2.2); ALKALINE PHOSPHATASE 91 U/L (38-126); ALT (SGPT) 84 U/L (21-72); ANION GAP 11 MEQ/L (5-15); AST (SGOT) 46 U/L (17-59); BUN/CREATININE RATIO 17 RATIO (6-26); CALCIUM 9.5 MG/DL (8.4-10.2); CHLORIDE 101 MEQ/L (98-107); CO2 - CARBON DIOXIDE 30 MEQ/L (22-30); CREATININE 0.9 MG/DL (0.8-1.5); GLOMERULAR FILTRATION RATE 89; GLUCOSE 97 MG/DL (75-110); POTASSIUM 3.7 MEQ/L (3.6-5); SODIUM 142 MEQ/L (134-144); TOTAL PROTEIN 7.2 G/DL (6.3-8.2)
[2017-01-25 17:53] LABS: INFLUENZA A AG SCREEN NEGATIVE (NEGATIVE); INFLUENZA B AG SCREEN NEGATIVE (NEGATIVE)
--- NOTE | 2017-01-25 18:43 | NUR ---
PROVIDER DR ZELAYA IN ROOM TALKING TO PATIENT AND SPOUSE.
--- NOTE | 2017-01-25 18:56 | NUR ---
NAOMY ZELAYA WAS IN ROOM FOR 15 MIN TALKING TO PATIENT AND FAMILY. AFTER DR ZELAYA LEFT ROOM, THIS RN WENT INTO ROOM. SPOUSE OF PATIENT STATED, "WELL, I GUESS WE WON'T BE COMING BACK, THAT DOCTOR WAS VERY AGGRESSIVE TO ME AND ACTED LIKE HE KNEW EVERYTHING. HE DOES NOT KNOW HOW TO CARE FOR FLAKITO, IS HE NEW? WE NEED TO LEAVE AND GO TO [place] TO GET THIS TAKEN CARE OF". PATIENT STATED, "JUST PULL THE PORT OUT AND WE WILL BE OUT OF HERE". THIS RN OFFERED TO CALL LITHOGRAPHIC ARTIST. PATRICIO COOK WAS CALLED AND CAME DOWN TO TALK TO SPOUSE OF PATIENT IN THE LOBBY. PATIENT DID NOT SIGN THE AMA FORM.
[2017-01-25 19:02] VITALS: BP 163/91; O2SAT 95
--- NOTE | 2017-01-25 19:54 | ERPDOC ---
Departure Disposition Decision Date: Jan 25, 2017 Disposition Decision Time: 20:10 Disposition: 07 AGAINST MEDICAL ADVICE Impression Impression Impression: Primary Impression: ASTHMA EXACERBATION Severity: Moderate Condition: Against Medical Advice Seen By: Physician only Referrals: MAHIN FERNANDEZ DO (Family) Problems/Meds/Labs Reviewed?: Yes Medications reviewed and manag: Yes Follow up care ordered?: Yes HPI - Dyspnea General Chief Complaint: Dyspnea/Respdistress Stated Complaint: DIFFICULTY BREATHING Time Seen by Provider: 16:43 HPI - Dyspnea Initial Comments 51-year-old male presents with respiratory distress. Patient has history of reactions to allergens with wheezing, respiratory distress, and anxiety. He has had several hospital admissions previously for this. He states that today he was outside, was exposed to some sort of allergy which set off his breathing and he needs to be given breathing treatments. He is well known to this ER, has been through multiple times with similar episodes. There is a "Chrisplan" which is been used previously and in treating his respiratory issues. Allergies: Coded Allergies: Penicillins (Verified Allergy, Unknown, 01/25/17) aspirin (Verified Allergy, Unknown, 01/25/17) Uncoded Allergies: GUACAMOLE (Allergy, Severe, DYSNEA, 07/31/15) BEE/WASP STINGS (Allergy, Unknown, ANAPHYLAXIS, 12/06/16) Past History Patient Medical History Problem List Updates: No new update Patient Surgical History Port-Placement. Past Medical History Respiratory: asthma Musculoskeletal: back pain Psychological: anxiety Surgical History Denies Surgeries General: other Family History Family PMH: FOUND: other Vaccines Hx Influenza Vaccination: Yes (fall 2013) Hx Pneumococcal Vaccination: Yes (WITHIN LAST 5 YEARS) Social History Does patient use chewing tobac: No Second Hand Exposure: No Substance Use Type: does not use Alcohol Intake: none Marital Status: Sexuality: female partner Housing: house Household Members: spouse Service: No Current Occupational Status: employed Occupational Hazard: No Review of Systems Unable to Obtain Comments On initial evaluation, patient denies any other issues beyond respiratory. All other Systems All Other Systems: Reviewed and Negative Physical Exam General General Nourishment: well developed, appears stated age, adult Distress Description Patient had normal speech pattern in conversation, but when not speaking had prolonged expiration with audible breath sounds.. Vitals and Pain First Documented Vital Signs Date Time Temp Pulse Resp B/P Pulse Ox O2 Delivery O2 Flow Rate FiO2 01/25/17 16:30 97.6 104 20 152/90 96 Room Air Weight: Kilograms: 89.300 Height (feet): 5 Height (inches): 10.00 Triage Pain Scale: Normal Exams: Head: Normocephalic w/o trauma CV: Regular rate and rhythm (patient is tachycardic, otherwise has regular rate.), without murmur or gallop, Pulses 2+ all extremities, capillary refill, < 2 seconds all ext., no pedal edema noted Abdomen: Bowel sounds positive, soft, non-tender, non-distended, no hepatosplenomegaly, masses or bruits noted Neurologic: Patient is alert, and oriented, cranial nerves, motor/sensory/ cerebellar, to observation Psychiatric: Patient exhibits, appropriate attention, emotion and affect Respiratory (brief) Comments No inspiratory wheeze or crackle heard. Expiration patient has air trapping with upper airway groan. These are not typical wheezes. Differential Diagnoses Considering: Acute Bronchitis, Acute Respiratory Failure, Asthma Exacerbation, COPD Exacerbation, Croup, Hyperventilation, Influenza, Pneumonia, Pneumothorax, Pulmonary Edema, Pulmonary Embolus, Other (anxiety) Progress Results/Orders Orders Procedure Category Date Status Time Cmp - Comprehensive LAB 01/25/17 Complete Metabolic 16:46 Blood Gas, Arterial - LAB 01/25/17 Complete ABG 16:46 Cbc W/Auto LAB 01/25/17 Complete Diff-Reflex Manual 16:46 Blood Culture ARIELLE 01/25/17 In Process 16:46 D-Dimer LAB 01/25/17 Complete 16:46 Troponin I W LAB 01/25/17 Complete Hemolysis Index 16:46 Ua, Dip Wreflex LAB 01/25/17 [employer] 16:46 Influenza A/B Screen LAB 01/25/17 Complete 16:46 Iv Lock (Ed Only) EDM 01/25/17 Transmitted 16:46 Albuterol/Ipratropium PHA 01/25/17 Complete (Duoneb) 17:00 Diphenhydramine PHA 01/25/17 Complete (Benadryl) 17:00 Methylprednisolone PHA 01/25/17 Complete Sod Succ (Solu-Medrol 17:00 Magnesium Sulfate PHA 01/25/17 Complete (Magnesium Sulfate) 17:00 Oxygen Administration EDM 01/25/17 Transmitted 16:46 Heliox Therapy RT 3/22/17 Transmitted 16:46 Magnesium Sulf 1gm / PHA 01/25/17 Complete D5w 100ml (Magnesiu 17:15 Lactate - Lactic Acid LAB 01/25/17 Complete Epinephrine PHA 01/25/17 Complete (Adrenalin) 17:15 Lab Results Laboratory Tests Test 01/25/17 16:39 01/25/17 17:10 01/25/17 17:11 01/25/17 17:30 Arterial Blood pH 7.470 Arterial Blood Partial Pressure CO2 43MMHG Arterial Blood pO2 at Patient Temp 55MMHG Arterial Blood HCO3 31MEQ/L Arterial Blood Total CO2 32.6MEQ/L Arterial Blood Oxygen Saturation 90.0% Arterial Blood Base Excess 6.8MMOL/L Oxygen Delivery Method (LAB) Room air Blood Gas Oxygen Liter Flow Blood Gas Oxygen Percent Given Blood Gas Vent Rate Blood Gas Tidal Volume ML Plasma Lactate 1.6MMOL/L White Blood Count 10.6T/MM3 Red Blood Count 4.80M/MM3 Hemoglobin 14.8GM/DL Hematocrit 42.4% Mean Corpuscular Volume 88.3UM3 Mean Corpuscular Hemoglobin 30.8UUG Mean Corpuscular Hemoglobin Concent 34.9GM/DL RDW Standard Deviation 40.9FL Platelet Count 239T/MM3 Mean Platelet Volume 9.4UM3 Immature Granulocyte % (Auto) 0.8% Neutrophils (%) (Auto) 58.5% Lymphocytes (%) (Auto) 26.2% Monocytes (%) (Auto) 7.1% Eosinophils (%) (Auto) 6.9% Basophils (%) (Auto) 0.5% Absolute Immature Granulocyte (auto 0.09T/MM3 Absolute Neutrophils (auto) 6.2T/MM3 Absolute Lymphocytes (auto) 2.8T/MM3 Absolute Monocytes (auto) 0.8T/MM3 Absolute Eosinophils (auto) 0.7T/MM3 Absolute Basophils (auto) 0.1T/MM3 D-Dimer < 150NG/ML Turbidity < 20 Sodium Level 142MEQ/L Potassium Level 3.7MEQ/L Chloride Level 101MEQ/L Carbon Dioxide Level 30MEQ/L Anion Gap 11MEQ/L Blood Urea Nitrogen 15.0MG/DL Creatinine 0.9MG/DL Glomerular Filtration Rate Calc 89 BUN/Creatinine Ratio 17RATIO Glucose Level 97MG/DL Calculated Osmolality 274MOSM/KG Calcium Level 9.5MG/DL Total Bilirubin 0.70MG/DL Icterus Index < 2 Aspartate Amino Transf (AST/SGOT) 46U/L Alanine Aminotransferase (ALT/SGPT) 84U/L Alkaline Phosphatase 91U/L Troponin I < 0.012ng/ml Total Protein 7.2G/DL Albumin 4.4G/DL Globulin 2.8G/DL Albumin/Globulin Ratio 1.6RATIO Chemistry Specimen Hemolysis < 15 Influenza Type A Antigen Negative Influenza Type B Antigen Negative Medications Current ED Medications Albuterol/ Ipratropium (Duoneb) 3 ml O ONCE AEROSOL ; Start 01/25/17 at 17:00; Stop 01/25/17 at 17:01; Status DC Diphenhydramine HCl (Benadryl) 50 mg O ONCE IV Last administered on 01/25/17 17:01; Start 01/25/17 at 17:00; Stop 01/25/17 at 17:01; Status DC Methylprednisolone Sodium Succinate 125 mg 125 mg O ONCE IV Last administered on 01/25/17 16:45; Start 01/25/17 at 17:00; Stop 01/25/17 at 17:01; Status DC Magnesium Sulfate 2 g/Sodium Chloride 104 ml @ 0 mls/hr O ONCE IV ; Start 01/25 at 17:00; Stop 01/25/17 at 17:01; Status DC Magnesium Sulfate/ Dextrose (Magnesium Sulfate Ivpb) 100 ml @ 600 mls/hr Q10M IV Last administered on 01/25/17 17:25; Start 01/25/17 at 17:15; Stop at 17:34; Status DC Epinephrine HCl (Adrenalin) 0.5 mg O ONCE IM Last administered on 01/25/17 17 :18; Start 01/25/17 at 17:15; Stop 01/25/17 at 17:16; Status DC Progress Progress Patient refused chest x-ray. I was able to get ABG initially on arrival which showed pH of 7.47, PCO2 43, PO2 of 55. O2 sat 90% HCO3 31.3 total CO2 32.6. Initial orders placed per [facility] plan, epinephrine 0.5 mg IM, DuoNeb by heliox, patient was given a total of 10 treatments per respiratory. The neutrophil 50 mg IV and Solu-Medrol 125 mg IV. Magnesium sulfate was ordered 2 g IV over 20 minutes. Initial discussion with the patient about for agreement with him that this was an appropriate plan. He also asked for ketamine and Dilaudid. I told him I wasn't planning on giving those for an asthma exacerbation, but would reevaluate after he had been treated. I returned to separate occasions to listen to his lungs and reevaluate him. Both times I felt that he was stable and doing well, oxygen sats were 90% to 98 % on room air. When we would speak, he was able to slow his breathing, would converse normally without any wheezing or forcing of words. Within a couple of breaths of finishing our conversation, he would go back to very forced breathing with loud wheezing/groaning with each expiration. He did not ask for any more narcotic or medication, until his showed up. They approached the nurse and said that they wanted to see a different doctor in order to get the medications that he needed. They threatened that if this did not happen, they would leave and go to [facility]. The nurse approached me, I went in the room to visit with them. Patient's was immediately aggressive and upset with me that I was not following the appropriate plan and giving his treatments. I had spoken with Dr. Villagran prior to going into the room and we had agreed that I may have to give a small dose of Dilaudid to help relax him prior to discharge. I did offer this to the patient , but his was not accepting of this. I tried to explain that the plan was a guideline to offer us options and treatment , that I was not obligated to follow it, but was obligated to evaluate him medically. His was very upset that he did not discriminate get the medication straight in order that he could leave early. I offered that if they had a primary care provider he could write those orders so that he could calm in and be treated without an evaluation, but that if he presented to the emergency department he would have to be evaluated each time. I explained that he was stable at this time that he was not requiring oxygen. His demanded to know if I was going to discharge him at this point. I I felt it appropriate plan was to observe him for a period of time rather than continue giving medications without giving him time to watch for and outcome. I offered to him that I would give him the Dilaudid and get his chest x-ray and watch him to see how he resolved. His was on accepting of this and continued to be aggressive in antagonizing. She insisted several times she is going to leave the room and was just going to go home, which caused him to please with her stay. She demanded that the be discharged and that they would go to a different hospital. I asked that they sign out AMA or allow us to finish treatment and observation. She insisted that they were leaving. I approached Dr. Villagran about speaking with him, but they were walking out of the emergency department at that point, having refused to sign the form given to them by nursing. At this time the patient left he was conversing in a normal manner, was not wheezing as he walked out. I am willing to see him at any future visits. JENNIFER ZELAYA MD Jan 25, 2017 19:54
[2017-01-25 20:23] VITALS: PULSE 108; RESP 24
== END 2017-01-25 19:00 | disposition left against medical advice (07) ==
LOC: ED 16:25
DX: J45.901 Unspecified asthma with (acute) exacerbation (principal)
CPT/HCPCS: 80053; 82803; 83605; 84484; 85025; 85379; 87040; 87400; 94644; 94645; 96365; 96372; 96375; 99284; J0171; J1200; J1642; J2930; J3475

== ENCOUNTER 2017-02-11 22:21 | Emergency (ER) | payer BC ==
[~2017-02-11] VITALS: Ht 177.8 cm; Wt 91.3 kg
[2017-02-11 22:21] VITALS: Ht 177.8 cm; Wt 91.3 kg
[2017-02-11] MEDS ORDERED: NORMAL SALINE 1,000 ML IV ONE (22:25)
--- OUTSIDE RECORDS SUMMARY | 2017-02-11 22:26 | XMS REPORT | Continuity of Care Document ---
Author Author Abdifatah [facility] LIVE Organization [facility] LIVE Address Unknown Phone Unavailable Support Name Relationship Address Phone ABBIE RAM MD Caregiver [address] [place] [address] [place] [phone] MAHIN FERNANDEZ DO Caregiver [address] [place] [address] PAOLA BHAKTA Next Of Kin [address] [facility], [place] [id number] Insurance Providers Payer Name Policy Number Subscriber Name Relationship [facility] [id number] Paola Bhakta 01 Spouse Advance Directives Directive [...] F (96.8 - 99.1) Temperature (Calculated Celsius) [phone] degrees C (36.0 - 37.3) Pulse Rate [...] Encounters Encounter Location Date/Time Departed Emergency Room [facility] 02/11/15 4:36pm Recent Diagnosis
--- OUTSIDE RECORDS SUMMARY | 2017-02-11 22:28 | XMS REPORT | Continuity of Care Document ---
Author Author [facility] Organization [facility] Address Unknown Phone Unavailable Support Name Relationship Address Phone MAHIN FERNANDEZ DO Caregiver [address] [place] [address] Unavailable JENNIFER ZELAYA MD Caregiver [address] [place] [address] Unavailable PAOLA BHAKTA Next Of Kin [address] [place] [address] Insurance Providers Guarantor Bob Bhakta Address [address] [place] [address] Email [email or web address] [facility] Policy Number [id number] Subscriber's Name Paola Bhakta Relationship 01 Spouse Group Number [id number] Advance Directives Directive Response Recorded Date/Time Advanced Directives Type None 01/25/17 4:30pm Chief Complaint and Reason for Visit Chief Complaint Dyspnea/Respdistress Reason for Visit ASTHMA EXACERBATION Problems Active Problems Medical Problem Onset [...] Allergy Relief 50 Mcg/Actuation Nasal) 9.9 Ml [place].susp 2 [place] Nasal Daily 12/06/16 Furosemide 20 Mg Tablet [...] none 02/18/2015 6:26pm Not Applicable Not Applicable Hospital Discharge Instructions No hospital discharge instructions. Plan of Care Discharge Date 01/25/17 7:00pm Disposition 07 AGAINST MEDICAL ADVICE Condition at Discharge Against Medical Advice Prescriptions See Medication Section Referrals MAHIN FERNANDEZ DO Address: [address] [address] Functional Status No functional status results. Allergies, Adverse Reactions, Alerts Allergen Type Severity Reaction Status Last Updated Penicillin Allergy Unknown Active 01/25/17 Aspirin Allergy Unknown Active 01/25/17 BEE/WASP STINGS Allergy Unknown ANAPHYLAXIS Active 12/06/16 [...] Vital Signs Vital Response Date/Time Temperature (Fahrenheit) 97.6 deg F (96.8 - 99.1) 01/25/2017 4:30pm Temperature (Calculated Celsius) 36.61795 degrees C (36.0 - 37.3) 01/25/2017 4:30pm Pulse Rate (adult) 104 bpm (60 - 100) 01/25/2017 4:30pm Respiratory Rate 20 breaths/min (10 - 20) 01/25/2017 4:30pm O2 Sat by Pulse Oximetry 96 % (90 - 100) 01/25/2017 4:30pm Oxygen Flow Rate 10.00 L/min 01/19/2017 6:45pm Blood Pressure 152/90 mm Hg 01/25/2017 4:30pm Height (Feet) 5 feet 01/25/2017 4:30pm Height (Inches) 10.00 inches 01/25/2017 4:30pm Weight (Kilograms) 89.300 kg 01/25/2017 4:30pm Body Mass Index (BMI) 28.0 01/25/2017 4:30pm Results Laboratory Results Test Name Result Units Flags Reference Collection Date/Time Result Date/ Time Comments Blood Gas Oxygen Percent Given 80 12/06/2016 3:40pm 12/06/2016 3: 53pm Adenovirus (PCR) NEGATIVE NEGATIVE 12/28/2016 8:16pm 12/28/2016 [...] (PCR) NEGATIVE NEGATIVE 12/28/2016 8:16pm 12/28 9:54pm White Blood Count 10.6 T/MM3 4.5-11.0 01/25/2017 5:11pm 01/25/2017 5: 18pm Red Blood Count 4.80 M/MM3 4.50-5.90 01/25/2017 5:11pm 01/25/2017 5: 18pm Hemoglobin 14.8 GM/DL 13.5-17.5 01/25/2017 5:1101/25/2017 5:18pm Hematocrit 42.4 % 41-53 01/25/2017 5:1101/25/2017 5:18pm Mean Corpuscular Volume 88.3 UM3 80-100 01/25/2017 5:11pm 01/25/2017 5: 18pm Mean Corpuscular Hemoglobin 30.8 UUG 26-34 01/25/2017 5:11pm 2016 5:18pm Mean Corpuscular Hemoglobin Concent 34.9 GM/DL 31-37 01/25/2017 5:1101/25/2017 5:18pm RDW Standard Deviation 40.9 FL 36.9-50.2 01/25/2017 5:1101/25/2017 5 :18pm Platelet Count 239 T/MM3 130-400 01/25/2017 5:1101/25/2017 5:18pm Mean Platelet Volume 9.4 UM3 9.4-12.4 01/25/2017 5:1101/25/2017 5: 18pm Neutrophils (%) (Auto) 58.5 % 33-66 01/25/2017 5:1101/25/2017 5: 18pm Lymphocytes (%) (Auto) 26.2 % 23-45 01/25/2017 5:01/25/2017 5: 18pm Monocytes (%) (Auto) 7.1 % 0-9.0 01/25/2017 5:01/25/2017 5:18pm Eosinophils (%) (Auto) 6.9 % H 0-4 01/25/2017 5:01/25/2017 5:18pm Basophils (%) (Auto) 0.5 % 0-2 01/25/2017 5:01/25/2017 5:18pm Immature Granulocyte % (Auto) 0.8 % H 0.0-0.5 01/25/2017 5:2016 5:18pm Absolute Neutrophils (auto) 6.2 T/MM3 1.8-7.7 01/25/2017 5:2016 5:18pm Absolute Lymphocytes (auto) 2.8 T/MM3 1-4.8 01/25/2017 5:2016 5:18pm Absolute Monocytes (auto) 0.8 T/MM3 0-0.8 01/25/2017 5:01/25/2017 5:18pm Absolute Eosinophils (auto) 0.7 T/MM3 H 0-0.5 01/25/2017 5:2016 5:18pm Absolute Basophils (auto) 0.1 T/MM3 0-0.2 01/25/2017 5:01/25/2017 5:18pm Absolute Immature Granulocyte (auto 0.09 T/MM3 H 0.00-0.03 01/25/2017 5: 01/25/2017 5:18pm D-Dimer < 150 NG/ML 0-230 01/25/2017 5:11pm 01/25/2017 5:48pm <230 NG/ ML D-DU=PRESUMPTIVE NEGATIVE FOR PE OR DVT >230 NG/ML D-DU=ADDITIONAL EVAL FOR PE OR DVT RECOMMENDED Icterus Index < 2 0-7 01/25/2017 5:11pm 01/25/2017 5:29pm Chemistry Specimen Hemolysis < 15 0-25 01/25/2017 5:1101/25/2017 5 :29pm 0-25: Specimen Exhibited No Hemolysis. Turbidity < 20 0-20 01/25/2017 5:11pm 01/25/2017 5:29pm Sodium Level 142 MEQ/L 134-144 01/25/2017 5:01/25/2017 5:29pm Potassium Level 3.7 MEQ/L 3.6-5 01/25/2017 5:1101/25/2017 5:29pm Chloride Level 101 MEQ/L 98-107 01/25/2017 5:01/25/2017 5:29pm Carbon Dioxide Level 30 MEQ/L 22-30 01/25/2017 5:01/25/2017 5: 29pm Anion Gap 11 MEQ/L 5-15 01/25/2017 5:01/25/2017 5:29pm Blood Urea Nitrogen 15.0 MG/DL 9-01/25/2017 5:01/25/2017 5: 29pm Creatinine 0.9 MG/DL 0.8-1.5 01/25/2017 5:01/25/2017 5:29pm BUN/Creatinine Ratio 17 RATIO 6-26 01/25/2017 5:01/25/2017 5:29pm Glomerular Filtration Rate Calc 89 01/25/2017 5:1101/25/2017 5: 29pm Glucose Level 97 MG/DL 75-110 01/25/2017 5:1101/25/2017 5:29pm Calculated Osmolality 274 MOSM/KG 261-280 01/25/2017 5:01/25/2017 5:29pm Calcium Level 9.5 MG/DL 8.4-10.2 01/25/2017 5:1101/25/2017 5:29pm Total Bilirubin 0.70 MG/DL 0.20-1.30 01/25/2017 5:11pm 01/25/2017 5: 29pm Alkaline Phosphatase 91 U/L 38-126 01/25/2017 5:11pm 01/25/2017 5:29pm Total Protein 7.2 G/DL 6.3-8.2 01/25/2017 5:11pm 01/25/2017 5:29pm Albumin 4.4 G/DL 3.5-5.0 01/25/2017 5:11pm 01/25/2017 5:29pm Globulin 2.8 G/DL 2.4-3.6 01/25/2017 5:11pm 01/25/2017 5:29pm Albumin/Globulin Ratio 1.6 RATIO 1.1-2.2 01/25/2017 5:11pm 01/25/2017 5 :29pm Aspartate Amino Transf (AST/SGOT) 46 U/L 17-59 01/25/2017 5:11pm 2016 5:29pm Alanine Aminotransferase (ALT/SGPT) 84 U/L H 21-72 01/25/2017 5:11pm 5:29pm Troponin I < 0.012 ng/ml 0-0.12 01/25/2017 5:11pm 01/25/2017 5:39pm Troponin values with a difference of 55% increase from orginal troponin value represent a true biological DELTA value. (%increase Calc=Orginal Troponin value, divided by subsequent Troponin value, multiplied by 100) Plasma Lactate 1.6 MMOL/L 0.6-2.2 01/25/2017 5:10pm 01/25/2017 5:30pm Arterial Blood pH 7.470 H 7.350-7.450 01/25/2017 4:39pm 01/25/2017 4: 55pm Arterial Blood Partial Pressure CO2 43 MMHG 34-45 01/25/2017 4:39pm 4:55pm Arterial Blood pO2 at Patient Temp 55 MMHG L 80-100 01/25/2017 4:39pm 4:55pm Arterial Blood HCO3 31 MEQ/L H 22-01/25/2017 4:39pm 01/25/2017 4: 55pm Arterial Blood Total CO2 32.6 MEQ/L H 23-01/25/2017 4:39pm 2016 4:55pm Arterial Blood Base Excess 6.8 MMOL/L H -2.0-2.0 01/25/2017 4:39pm 01/25 4:55pm Arterial Blood Oxygen Saturation 90.0 % L 95.0-98.0 01/25/2017 4:39pm 4:55pm Oxygen Delivery Method (LAB) ROOM AIR 01/25/2017 4:39pm 01/25/2017 4:55pm Influenza Type A Antigen NEGATIVE NEGATIVE 01/25/2017 5:30pm 2016 5:53pm Negative for Flu A protein antigen. Assay sensitivity is 90%. Influenza Type B Antigen NEGATIVE NEGATIVE 01/25/2017 5:30pm 2016 5:53pm Negative for Flu B protein antigen. Assay sensitivity is 90%. Microbiology Results Procedure Source Organism/Result Collection Date/Time Result Date/Time Result Status Blood Culture Peripheral/Iv Start CULTURE INITIATED - RESULTS PENDING 01/25 5:48pm 01/25/2017 5:52pm Preliminary Procedures Procedure Status Date Provider(s) Airway inhalation treatment Completed 11/03/16 Airway inhalation treatment Completed 11/03/16 Ther/proph/diag iv inf init Completed 11/03/16 Ther/proph/diag inj sc/im Completed 11/03/16 Tx/pro/dx inj new drug addon Completed 11/03/16 Tx/pro/dx inj new drug addon Completed 11/03/16 Tx/pro/dx inj new drug addon Completed 11/03/16 Tx/pro/dx inj new drug addon Completed 11/03/16 Tx/pro/dx inj new drug addon Completed 11/03/16 Tx/pro/dx inj same drug spectacle truer Completed 11/03/16 Tx/pro/dx inj same drug spectacle truer Completed 11/03/16 Emergency dept visit Completed 11/03/16 EPINEPHRINE MDV 1MG/ML 30ML Completed 11/03/16"INJECTION, HYDROMORPHONE, UP TO 4 MG" Completed 11/03/16"INJECTION, HYDROMORPHONE, UP TO 4 MG" Completed 11/03/16"INJECTION, DIPHENHYDRAMINE HCL, UP TO 50 MG" Completed 11/03/16"INJECTION, DIPHENHYDRAMINE HCL, UP TO 50 MG" Completed 11/03/16"INJECTION, HEPARIN SODIUM, (HEPARIN LOCK FLUSH), PER Completed "INJECTION, LORAZEPAM, 2 MG" Completed 11/03/16"INJECTION, METHYLPREDNISOLONE SODIUM SUCCINATE, UP TO Completed "INJECTION, MAGNESIUM SULFATE, PER 500 MG" Completed 11/03/16"INFUSION, NORMAL SALINE SOLUTION , 250 CC" Completed 11/03/16126207"ADMINISTERED THROUGH DME, CONCENTRATED FORM, 1 MG" Completed [...] addon Completed 11/13/16 Tx/pro/dx inj same drug spectacle truer Completed 11/13/16 Tx/pro/dx inj same drug spectacle truer Completed 11/13/16 Emergency dept visit Completed 11/13/16 EPINEPHRINE MDV 1MG/ML 30ML Completed 11/13/16 EPINEPHRINE MDV 1MG/ML 30ML Completed 11/13/16"INJECTION, HYDROMORPHONE, UP TO 4 MG" Completed 11/13/16"INJECTION, HYDROMORPHONE, UP TO 4 MG" Completed 11/13/16"INJECTION, DIPHENHYDRAMINE HCL, UP TO 50 MG" Completed 11/13/16"INJECTION, DIPHENHYDRAMINE HCL, UP TO 50 MG" Completed 11/13/16"INJECTION, HEPARIN SODIUM, (HEPARIN LOCK FLUSH), PER Completed "INJECTION, METHYLPREDNISOLONE SODIUM SUCCINATE, UP TO Completed "INJECTION, MAGNESIUM SULFATE, PER 500 MG" Completed 11/13/16"INJECTION, MAGNESIUM SULFATE, PER 500 MG" Completed 11/13/16926827"INFUSION, NORMAL SALINE SOLUTION , 1000 CC" Completed 11/13/16 [id number]% DEXTROSE/WATER (500 ML=1 UNIT) Completed 11/13/16 [id number]% DEXTROSE/WATER (500 ML=1 UNIT) Completed 11/13/16477572"ADMINISTERED THROUGH DME, CONCENTRATED FORM, 1 MG" Completed 11/13/16 907502"ADMINISTERED THROUGH DME, CONCENTRATED FORM, 1 MG" Completed 11/13/16622087"ADMINISTERED THROUGH DME, CONCENTRATED FORM, 1 MG" Completed 11/13/16 277806"ADMINISTERED THROUGH DME, CONCENTRATED FORM, 1 MG" Completed 11/13/16340545"ADMINISTERED THROUGH DME, CONCENTRATED FORM, 1 MG" Completed [...] addon Completed 12/06/16 Tx/pro/dx inj same drug spectacle truer Completed 12/06/16 Emergency dept visit Completed 12/06/16 EPINEPHRINE MDV 1MG/ML 30ML Completed 12/06/16041708"INJECTION, DIPHENHYDRAMINE HCL, UP TO 50 MG" Completed 12/06/16889429"INJECTION, DIPHENHYDRAMINE HCL, UP TO 50 MG" Completed 12/06/16122663"INJECTION, HEPARIN SODIUM, (HEPARIN LOCK FLUSH), PER Completed 003"INJECTION, KETOROLAC TROMETHAMINE, PER 15 MG" Completed 12/06/16"INJECTION, METHYLPREDNISOLONE SODIUM SUCCINATE, UP TO Completed "INJECTION, MAGNESIUM SULFATE, PER 500 MG" Completed 12/06/16 8080767% DEXTROSE/WATER (500 ML=1 UNIT) Completed 12/06/16 Cbt [...] addon Completed 12/12/16 Tx/pro/dx inj same drug spectacle truer Completed 12/12/16 Emergency dept visit Completed 12/12/16 EPINEPHRINE MDV 1MG/ML 30ML Completed 12/12/16 444192"INJECTION, HYDROMORPHONE, UP TO 4 MG" Completed 12/12/16945814"INJECTION, DIPHENHYDRAMINE HCL, UP TO 50 MG" Completed 12/12/16693060"INJECTION, DIPHENHYDRAMINE HCL, UP TO 50 MG" Completed 12/12/16379218"INJECTION, LORAZEPAM, 2 MG" Completed 12/12/16736264"INJECTION, ONDANSETRON HYDROCHLORIDE, PER 1 MG" Completed 12/12/16147402"INJECTION, METHYLPREDNISOLONE SODIUM SUCCINATE, UP TO Completed 003"INJECTION, FENTANYL CITRATE, 0.1 MG" Completed 12/12/16998656"INJECTION, MAGNESIUM SULFATE, PER 500 MG" Completed 12/12/16199442"INJECTION, MAGNESIUM SULFATE, PER 500 MG" Completed 12/12/16 8747439% DEXTROSE/WATER (500 ML=1 UNIT) Completed 12/12/16 6808920% DEXTROSE/WATER (500 ML=1 UNIT) Completed 12/12/16 Airway [...] addon Completed 12/21/16 Tx/pro/dx inj same drug spectacle truer Completed 12/21/16 Tx/pro/dx inj same drug spectacle truer Completed 12/21/16 Emergency dept visit Completed 12/21/16 EPINEPHRINE MDV 1MG/ML 30ML Completed 12/21/16929324"INJECTION, HYDROMORPHONE, UP TO 4 MG" Completed 12/21/16835113"INJECTION, DIPHENHYDRAMINE HCL, UP TO 50 MG" Completed 12/21/16854860"INJECTION, DIPHENHYDRAMINE HCL, UP TO 50 MG" Completed 12/21/16"INJECTION, HEPARIN SODIUM, (HEPARIN LOCK FLUSH), PER Completed 003"INJECTION, LORAZEPAM, 2 MG" Completed 12/21/16478012"INJECTION, LORAZEPAM, 2 MG" Completed 12/21/16"INJECTION, METHYLPREDNISOLONE SODIUM SUCCINATE, UP TO Completed 003"INJECTION, MAGNESIUM SULFATE, PER 500 MG" Completed 12/21/165% DEXTROSE/WATER (500 ML=1 UNIT) Completed 12/21/16 Chest x-ray 2vw frontal&latl Completed 12/23/16 Cbt 1st hour Completed 12/23/16 Ther/proph/diag iv inf init Completed 12/23/16 Ther/proph/diag inj sc/im Completed 12/23/16 Tx/pro/dx inj new drug addon Completed 12/23/16 Tx/pro/dx inj new drug addon Completed 12/23/16 Tx/pro/dx inj new drug addon Completed 12/23/16 Tx/pro/dx inj new drug addon Completed 12/23/16 Tx/pro/dx inj same drug spectacle truer Completed 12/23/16 Tx/pro/dx inj same drug spectacle truer Completed 12/23/16 Tx/pro/dx inj same drug spectacle truer Completed 12/23/16 Emergency dept visit Completed 12/23/16 EPINEPHRINE MDV 1MG/ML 30ML Completed 12/23/16941284"INJECTION, HYDROMORPHONE, UP TO 4 MG" Completed 12/23/16267165"INJECTION, HYDROMORPHONE, UP TO 4 MG" Completed 12/23/16"INJECTION, DIPHENHYDRAMINE HCL, UP TO 50 MG" Completed 12/23/16"INJECTION, DIPHENHYDRAMINE HCL, UP TO 50 MG" Completed 12/23/16"INJECTION, DIPHENHYDRAMINE HCL, UP TO 50 MG" Completed 12/23/16"INJECTION, HEPARIN SODIUM, (HEPARIN LOCK FLUSH), PER Completed "INJECTION, LORAZEPAM, 2 MG" Completed 12/23/16"INJECTION, METHYLPREDNISOLONE SODIUM SUCCINATE, UP TO Completed "INJECTION, METHYLPREDNISOLONE SODIUM SUCCINATE, UP TO Completed "INJECTION, MAGNESIUM SULFATE, PER 500 MG" Completed 12/23/165% DEXTROSE/WATER (500 ML=1 UNIT) Completed 12/23/16 Chylmd [...] addon Completed 12/28/16 Tx/pro/dx inj same drug spectacle truer Completed 12/28/16 Emergency dept visit Completed 12/28/16 EPINEPHRINE MDV 1MG/ML 30ML Completed 12/28/16"INJECTION, HYDROMORPHONE, UP TO 4 MG" Completed 12/28/16"INJECTION, DIPHENHYDRAMINE HCL, UP TO 50 MG" Completed 12/28/16"INJECTION, DIPHENHYDRAMINE HCL, UP TO 50 MG" Completed 12/28/16"INJECTION, KETOROLAC TROMETHAMINE, PER 15 MG" Completed 12/28/16"INJECTION, LORAZEPAM, 2 MG" Completed 12/28/16"INJECTION, METHYLPREDNISOLONE SODIUM SUCCINATE, UP TO Completed "INJECTION, FENTANYL CITRATE, 0.1 MG" Completed 12/28/16"INJECTION, MAGNESIUM SULFATE, PER 500 MG" Completed 12/28/16"INFUSION, NORMAL SALINE SOLUTION , 1000 CC" Completed 12/28/16"INFUSION, NORMAL SALINE SOLUTION , 250 CC" Completed 12/28/16"ADMINISTERED THROUGH DME, CONCENTRATED FORM, 1 MG" Completed 12/28/16"ADMINISTERED THROUGH DME, CONCENTRATED FORM, 1 MG" Completed [...] addon Completed 01/09/17 Tx/pro/dx inj same drug spectacle truer Completed 01/09/17 Tx/pro/dx inj same drug spectacle truer Completed 01/09/17 Tx/pro/dx inj same drug spectacle truer Completed 01/09/17 Tx/pro/dx inj same drug spectacle truer Completed 01/09/17 Emergency dept visit Completed 01/09/17 [...] PER Completed "INJECTION, LORAZEPAM, 2 MG" Completed 01/09/17"INJECTION, METHYLPREDNISOLONE SODIUM SUCCINATE, UP TO Completed "INJECTION, MAGNESIUM SULFATE, PER 500 MG" Completed 01/09/17"INFUSION, NORMAL SALINE SOLUTION , 1000 CC" Completed 01/09/17"INFUSION, NORMAL SALINE SOLUTION , 250 CC" Completed 01/09/17 207535"ADMINISTERED THROUGH DME, CONCENTRATED FORM, 1 MG" Completed 01/09/17521235"ADMINISTERED THROUGH DME, CONCENTRATED FORM, 1 MG" Completed 01/09/17 Cbt 1st hour Completed 01/19/17 Cbt each addl hour Completed 01/19/17 Ther/proph/diag iv inf init Completed 01/19/17 Ther/proph/diag inj sc/im Completed 01/19/17 Tx/pro/dx inj new drug addon Completed 01/19/17 Tx/pro/dx inj new drug addon Completed 01/19/17 Tx/pro/dx inj new drug addon Completed 01/19/17 Tx/pro/dx inj new drug addon Completed 01/19/17 Tx/pro/dx inj same drug spectacle truer Completed 01/19/17 Emergency dept visit Completed 01/19/17 EPINEPHRINE MDV 1MG/ML 30ML Completed 01/19/17"INJECTION, HYDROMORPHONE, UP TO 4 MG" Completed 01/19/17"INJECTION, HYDROMORPHONE, UP TO 4 MG" Completed 01/19/17"INJECTION, DIPHENHYDRAMINE HCL, UP TO 50 MG" Completed 01/19/17"INJECTION, DIPHENHYDRAMINE HCL, UP TO 50 MG" Completed 01/19/17"INJECTION, LORAZEPAM, 2 MG" Completed 01/19/17"INJECTION, METHYLPREDNISOLONE SODIUM SUCCINATE, UP TO Completed "INJECTION, MAGNESIUM SULFATE, PER 500 MG" Completed 01/19/17"ADMINISTERED THROUGH DME, CONCENTRATED FORM, 1 MG" Completed 01/19/17 Encounters Encounter Location Arrival/Admit Date Discharge/Depart Date Attending Provider Departed Emergency Room [facility] 01/25/17 4:25pm 01/25/17 7: 00pm JENNIFER ZELAYA MD Departed Emergency Room [facility] 01/19/17 4:26pm 01/19/17 7: 10pm BIANCA CROSS MD Departed Emergency Room [facility] 01/09/17 7:00pm 01/09/17 10: 25pm BIANCA CROSS MD Departed Emergency Room [facility] 12/28/16 7:16pm 12/28/16 10: 38pm VANIA ALEJANDRO DO Departed Emergency Room [facility] 12/23/16 8:51pm 12/24/16 12: 33am BULMARO ZARAGOZA MD Departed Emergency Room [facility] 12/21/16 3:54am 12/21/16 7: 30am BULMARO ZARAGOZA MD Departed Emergency Room [facility] 12/12/16 4:28pm 12/12/16 8: 57pm JORGE LUIS NUNO DO Departed Emergency Room [facility] 12/06/16 3:20pm 12/06/16 5: 21pm JENNIFER ZELAYA MD Departed Emergency Room [facility] 11/13/16 3:44pm 11/13/16 6: 40pm MACARENA DUARTE MD Departed Emergency Room [facility] 11/03/16 5:50pm 11/03/16 8: 30pm BIANCA CROSS MD Recent Diagnosis
[2017-02-11] MEDS ORDERED: ALBUTEROL/IPRATROPIUM INHAL. 2.5mg-0.5mg/3ml Neb. AEROSOL ONE (22:30)
[2017-02-11] MEDS ORDERED: DiphenhydrAMINE 50 MG/ML INJECTION IV ONE ×2 (22:30→23:15)
[2017-02-11] MEDS ORDERED: ALBUTEROL INH.SOLN. 2.5mg/3ml (0.083%) Neb. AEROSOL ONE (22:30)
[2017-02-11] MEDS ORDERED: EPINEPHRINE 1mg/ml INJECTION AMP IM ONE (22:30)
--- OUTSIDE RECORDS SUMMARY | 2017-02-11 22:41 | XMS REPORT | Continuity of Care Document ---
Author Author [facility] Organization [facility] Address Unknown Phone Unavailable Support Name Relationship Address Phone ABBIE RAM MD Caregiver [address] [place] [address] [place] [id number] MAHIN FERNANDEZ DO Caregiver [phone] [place] [address] PAOLA BHAKTA Next Of Kin [address] [facility], [place] [id number] Insurance Providers Payer Name Policy Number Subscriber Name Relationship [facility] [id number] Paola Bhakta 01 Spouse Advance Directives Directive [...] F (96.8 - 99.1) Temperature (Calculated Celsius) 36.13249 degrees C (36.0 - 37.3) Pulse Rate [...] Encounters Encounter Location Date/Time Departed Emergency Room [facility] 02/11/15 4:36pm Recent Diagnosis
--- NOTE | 2017-02-11 22:45 | ERPDOC ---
Departure Disposition Decision Date: Feb 12, 2017 Disposition Decision Time: 00:23 Disposition: 01 DISCHARGED HOME, SELF-CARE Impression Impression Impression: Primary Impression: ASTHMA EXACERBATION Additional Impression: Anxiety Severity: Severe Condition: Improved Seen By: Physician only Referrals: MAHIN FERNANDEZ DO (Family) 3 Days Patient Instructions: Asthma (ED) Problems/Meds/Labs Reviewed?: Yes Medications reviewed and manag: Yes Additional Instructions: Take your previously prescribed asthma medications as directed by your doctor. Follow up with your doctor this next week. Follow up care ordered?: Yes Mental Status: Alert, Oriented HPI - Dyspnea General Stated Complaint: DIFF BREATHING Time Seen by Provider: 22:25 Source: patient Exam Limitations: no limitations HPI - Dyspnea Initial Comments 51yo man presents tonight for acute asthma exacerbation. states that he has had sx all day; just prior to going to bed his sx got abruptly worse. Pt presents for treatment of his asthma. Occurred At: home Onset/Timing: Gradual, Getting worse Duration: 6-12 hrs Severity: severe Activities at Onset: activity Prior Episodes/Possible Cause: frequent episodes Modifying Factors: IMPROVES WITH: nebulizer, oxygen, WORSE WITH: activity, coughing Associated Symptoms: chest pain, cough, nausea/vomiting, shortness of breath Aspirin Treatment Today: contraindicated Hx of Similar Symptoms: Yes Allergies: Coded Allergies: Penicillins (Verified Allergy, Unknown, 01/25/17) aspirin (Verified Allergy, Unknown, 01/25/17) Uncoded Allergies: GUACAMOLE (Allergy, Severe, DYSNEA, 07/31/15) BEE/WASP STINGS (Allergy, Unknown, ANAPHYLAXIS, 12/06/16) Past History Patient Surgical History Port-Placement. Past Medical History Respiratory: asthma Musculoskeletal: back pain Psychological: anxiety Surgical History Denies Surgeries General: other Family History Family PMH: FOUND: other Vaccines Hx Influenza Vaccination: Yes (fall 2013) Hx Pneumococcal Vaccination: Yes (WITHIN LAST 5 YEARS) Social History Does patient use chewing tobac: No Second Hand Exposure: No Substance Use Type: does not use Alcohol Intake: none Marital Status: Sexuality: female partner Housing: house Household Members: spouse Service: No Current Occupational Status: employed Occupational Hazard: No Review of Systems Cardiovascular Rhythm/Rate: tachycardia Pulmonary Respiratory: cough, dyspnea, tachypnea All other Systems All Other Systems: Reviewed and Negative Physical Exam General General Nourishment: well nourished, well developed, appears stated age, no acute distress, adult, obese Vitals and Pain First Documented Vital Signs Date Time Temp Pulse Resp B/P Pulse Ox O2 Delivery O2 Flow Rate FiO2 02/11/17 22:21 98.3 130 32 167/96 97 Room Air Weight: Kilograms: Height (feet): 5 Height (inches): 10.00 Triage Pain Scale: Normal Exams: Head: Normocephalic w/o trauma Eyes: Pupils are PERRLA w/ EOMI, No scleral icterus, irritation ENMT: No facial trauma, nasal exudates, pharyngeal erythema Neck: Full range of motion, without adenopathy, JVD Abdomen: Bowel sounds positive, soft, non-tender, non-distended Lymphatic: No lymphadenopathy Musculoskeletal: No tenderness, or deformity noted Integumentary: No rashes, hives, or bruising noted Neurologic: Patient is alert, and oriented Psychiatric: Patient exhibits, appropriate attention Respiratory (brief) Respiratory: FOUND: clear all [place], equal bilaterally, symmetrical, wheezes ( Faint), NOT FOUND: rales Cardiovascular (brief) Cardiac: FOUND: regular rhythm, NOT FOUND: click, gallop, murmur, pedal edema, peripheral edema, regular rate (Tachycardia), rub Capillary Refill: <2 sec Pulses: all distal extremities, equal, strong Differential Diagnoses Considering: Acute Respiratory Failure, Asthma Exacerbation, Hyperventilation, Other (Anxiety) Progress Results/Orders Orders Procedure Category Date Status Time EKG EKG 02/11/17 Logged 22:25 Chest 1 View RAD 02/11/17 Taken 22:25 Iv Lock (Ed Only) EDM 02/11/17 Transmitted 22:25 Normal Saline (Normal PHA 02/11/17 Complete Saline Iv) 22:25 Albuterol Sulfate PHA 02/11/17 Complete (Proventil 2.5 Mg/3 Ml 22:30 Albuterol/Ipratropium PHA 02/11/17 Complete (Duoneb) 22:30 Diphenhydramine PHA 02/11/17 Complete (Benadryl) 22:30 Epinephrine PHA 02/11/17 Complete (Adrenalin) 22:30 Methylprednisolone PHA 02/11/17 Complete Sod Succ (Solu-Medrol 22:30 Oxygen Administration EDM 02/11/17 Transmitted 22:25 Heliox Therapy RT 02/11/17 Transmitted 22:25 Magnesium Sulf 1gm / PHA 02/11/17 Complete D5w 100ml (Magnesiu 22:34 Hydromorphone PHA 02/11/17 Complete (Dilaudid) 23:00 Lorazepam (Ativan) PHA 02/11/17 Complete 23:15 Ketamine (Ketalar) PHA 02/11/17 Complete 23:15 Diphenhydramine PHA 02/11/17 Complete (Benadryl) 23:15 Heparin Flush PHA 02/12/17 Complete (Heparin Flush) 00:30 Medications Current ED Medications Sodium Chloride (Normal Saline IV) 1,000 ml @ 0 mls/hr Q0M ONCE IV Last administered on 02/11/17 22:50; Start 02/11/17 at 22:25; Stop 02/11/17 at 22:28; Status DC Albuterol Sulfate (Proventil 2.5 Mg/3 ml) 7.5 mg O ONCE AEROSOL Last administered on 02/11/17 22:30; Start 02/11/17 at 22:30; Stop 02/11/17 at 22:31; Status DC Albuterol/ Ipratropium (Duoneb) 9 ml O ONCE AEROSOL Last administered on 22:52; Start 02/11/17 at 22:30; Stop 02/11/17 at 22:31; Status DC Diphenhydramine HCl (Benadryl) 50 mg O ONCE IV Last administered on 02/11/17 22:39; Start 02/11/17 at 22:30; Stop 02/11/17 at 22:31; Status DC Epinephrine HCl (Adrenalin) 0.3 mg O ONCE IM Last administered on 02/11/17 22: 32; Start 02/11/17 at 22:30; Stop 02/11/17 at 22:31; Status DC Methylprednisolone Sodium Succinate 125 mg 125 mg O ONCE IV Last administered on 02/11/17 22:40; Start 02/11/17 at 22:30; Stop 02/11/17 at 22:31; Status DC Magnesium Sulfate/ Dextrose (Magnesium Sulfate Ivpb) 100 ml @ 600 mls/hr Q10M IV Last administered on 02/11/17 23:02; Start 02/11/17 at 22:34; Stop 02/11/17 at 22:53; Status DC Hydromorphone HCl (Dilaudid) 0.5 mg O ONCE IV Last administered on 02/11/17 23 :28; Start 02/11/17 at 23:00; Stop 02/11/17 at 23:01; Status DC Lorazepam (Ativan) 0.25 mg O ONCE IV Last administered on 02/11/17 23:28; Start 02/11/17 at 23:15; Stop 02/11/17 at 23:16; Status DC Ketamine HCl (Ketalar) 50 mg O ONCE IV Last administered on 02/11/17 23:33; Start 02/11/17 at 23:15; Stop 02/11/17 at 23:16; Status DC Diphenhydramine HCl (Benadryl) 50 mg O ONCE IV Last administered on 02/11/17 23:27; Start 02/11/17 at 23:15; Stop 02/11/17 at 23:16; Status DC Heparin Sodium (Porcine) (Heparin Flush) 500 unit O ONCE IV Last administered on 02/12/17 00:31; Start 02/12/17 at 00:30; Stop 02/12/17 at 00:31; Status DC Progress Progress Pt is well known to this facility; presents frequently for exacerbations - some more 'genuine' than others. Trudi, after 3x albuterol nebs, pt has faint wheezing, with good air flow, but continues to act as though his dyspnea is severe. Strong suspicion that trudi's exacerbation is more related to psychiatric pathology than asthma. Will treat appropriately for an acute exacerbation. There is no doubt that, as hard as he is working to expel air, he is causing himself pain. Against my better judgement, will give 0.5mg of dilaudid. Because pts sx tonight appear psychiatric, and because pt has shown violent tendencies in the past when given only ativan without ketamine, will order these in concert together. Agree with Dr. Meza's assessment during pt's last ER visit. Will approach mri supervisor regarding system-wide change in approaching this pt in the future. Pt now Sat'ing well on RA. No longer wheezing or working hard to breath. Pt desires to go home. Will d/c to home with good RTC precautions and instructions to f/u with PCM. EKG EKG : Rate: >100 Rhythm: sinus [place]: left QRS: normal Intervals: normal ST/T: normal Interpreted by: signing physician Xray Xray : Xray: CXR Portable Interpretation: Normal, Interpreted by Sc VANIA ALEJANDRO DO Feb 11, 2017 22:45
[2017-02-11] MEDS: MAGNESIUM SULF 1gm / D5W 100ml 100 ML IV SCH ×2 (22:50→23:02)
[2017-02-11] MEDS ORDERED: HYDROMORPHONE 2mg/ml INJECTION IV ONE (23:00)
[2017-02-11] MEDS ORDERED: LORAZEPAM 2 MG/ML INJECTION IV ONE (23:15)
[2017-02-11] MEDS ORDERED: KETAMINE 500mg/10ml INJECTION IV ONE (23:15)
[2017-02-12 00:35] VITALS: BP 123/59; PULSE 122; RESP 20; TEMP 98.3; O2SAT 95
--- NOTE | 2017-02-12 10:20 | DI ---
Indication: ITS.REASON: asthma PROCEDURE: CHEST 1 VIEW: Encounter: Initial Comparison: January 09, 2017 Findings: Motion artifact. The lungs are stable in appearance without new focal airspace consolidation. There is no pleural effusion or pneumothorax. The heart size, pulmonary vascularity and mediastinal contours are unchanged. Right-sided port catheter. IMPRESSION: Stable appearance of the chest without acute cardiopulmonary disease. .
== END 2017-02-12 00:35 | disposition home or self-care (01) ==
LOC: ED 22:21
DX: J45.901 Unspecified asthma with (acute) exacerbation (principal)
CPT/HCPCS: 36000; 71010; 93005; 94644; 96361; 96365; 96372; 96375; 96376; 99284; J0171; J1170; J1200; J1642; J2060; J2930; J3475; J7030; J7611

== ENCOUNTER 2017-03-02 21:19 | Emergency (ER) | payer BC ==
[~2017-03-02] VITALS: Ht 177.8 cm; Wt 91.3 kg
[2017-03-02 21:23] VITALS: Ht 177.8 cm; Wt 91.3 kg
--- OUTSIDE RECORDS SUMMARY | 2017-03-02 21:29 | XMS REPORT | Continuity of Care Document ---
Author Author [facility] Organization [facility] Address Unknown Phone Unavailable Support Name Relationship Address Phone ABBIE RAM MD Caregiver [address] [place] [address] [place] [phone] MAHIN FERNANDEZ DO Caregiver [phone] [place] [address] PAOLA BHAKTA Next Of Kin [address] [facility], [place] [id number] Insurance Providers Payer Name Policy Number Subscriber Name Relationship [facility] [id number] Paola Bhakta 01 Spouse Advance Directives Directive [...] F (96.8 - 99.1) Temperature (Calculated Celsius) [phone] degrees C (36.0 - 37.3) Pulse Rate [...] Encounters Encounter Location Date/Time Departed Emergency Room [facility] 02/11/15 4:36pm Recent Diagnosis
[2017-03-02] MEDS ORDERED: MAGNESIUM SULFATE IM ONE (21:30)
--- OUTSIDE RECORDS SUMMARY | 2017-03-02 21:31 | XMS REPORT | Continuity of Care Document ---
Author Author [facility] Organization [facility] Address Unknown Phone Unavailable Support Name Relationship Address Phone MAHIN FERNANDEZ DO Caregiver [address] [place] [address] Unavailable MARCHVANIA DO Caregiver [address] [place] [address] Unavailable PAOLA BHAKTA Next Of Kin [address] [place] [address] Insurance Providers Guarantor Bob Bhakta Address [address] [place] [address] Email [email or web address] Payer [facility] Policy Number [id number] Subscriber's Name Paola Bhakta Relationship 01 Spouse Group Number [id number] Advance Directives Directive Response Recorded Date/Time Advanced Directives Type None 02/11/17 10:21pm Chief Complaint and Reason for Visit Chief Complaint Dyspnea/Respdistress Reason for Visit Anxiety [id number] EXACERBATION Problems Active Problems Medical Problem Onset Date Status ASTHMA EXACERBATION Unknown Acute Allergic to IV contrast Unknown Acute Anxiety state Unknown Acute Low back pain Unknown Acute Sinusitis Unknown Acute Spondylolisthesis at L4-L5 level Unknown Acute Viral syndrome Unknown Acute Past Problems Medical Problem Onset Date Anxiety Unknown Anxiety Unknown Asthma exacerbation Unknown Asthma with [...] Allergy Relief 50 Mcg/Actuation Nasal) 9.9 Ml Castell.susp 2 Castell Nasal Daily 12/06/16 Furosemide 20 Mg Tablet [...] Onset Date Status Hx Substance Use No 02/11/2017 11:38pm Not Applicable Not Applicable Hx Alcohol Use Y OCC 02/11/2017 11:38pm Not Applicable Not Applicable Tobacco Usage none 02/18/2015 6:26pm Not Applicable Not Applicable Query Response Start Date Stop Date Smoking Status Never smoker Hospital Discharge Instructions No hospital discharge instructions. Plan of Care Discharge Date 02/12/17 12:35am Disposition 01 DISCHARGED HOME, SELF-CARE Condition at Discharge Improved Instructions/Education Provided Asthma (ED) Prescriptions See Medication Section Referrals MAHIN FERNANDEZ DO Order Date: 3 Days Address: [address] [place] [id number] Note: Additional Instructions/Education Take your previously prescribed asthma medications as directed by your doctor. Follow up with your doctor this next week. Care Plan and Goals Physician Care Plan Problem: Asthma exacerbation Goal: Follow up with primary care provider [...] Y fall 201308/05/15 2:30pm DTaP Vaccine History 200902/11/17 11:38pm Influenza Vaccine Hx 201502/11/17 11:38pm Tdap Vaccine Hx NO BROKEN SKIN 06/08/16 9:23pm Vital Signs Acute Vital Signs Vital Response Date/Time Temperature (Fahrenheit) 98.3 deg F (96.8 - 99.1) 02/12/2017 12:35am Temperature (Calculated Celsius) 36.12154 degrees C (36.0 - 37.3) 02/12/2017 12:35am Pulse Rate (adult) 122 bpm (60 - 100) 02/12/2017 12:35am Respiratory Rate 20 breaths/min (10 - 20) 02/12/2017 12:35am O2 Sat by Pulse Oximetry 95 % (90 - 100) 02/12/2017 12:35am Oxygen Flow Rate 10.00 L/min 01/19/2017 6:45pm Blood Pressure 123/59 mm Hg 02/12/2017 12:35am Height (Feet) 5 feet 02/11/2017 10:21pm Height (Inches) 10.00 inches 02/11/2017 10:21pm Weight (Kilograms) 91.300 kg 02/11/2017 10:21pm Body Mass Index (BMI) 28.0 02/11/2017 10:21pm Results Laboratory Results Test Name Result Units [...] 5: 18pm Hemoglobin 14.8 GM/DL 13.5-17.5 01/25/2017 5:11pm 01/25/2017 5:18pm Hematocrit 42.4 % 41-53 01/25/2017 5:11pm 01/25/2017 5:18pm Mean Corpuscular Volume 88.3 UM3 80-100 01/25/2017 5:1101/25/2017 5: 18pm Mean Corpuscular Hemoglobin 30.8 UUG 26-34 01/25/2017 5:112016 5:18pm Mean Corpuscular Hemoglobin Concent 34.9 GM/DL 31-37 01/25/2017 5:1101/25/2017 5:18pm RDW Standard Deviation 40.9 FL 36.9-50.2 01/25/2017 5:1101/25/2017 5 :18pm Platelet Count 239 T/MM3 130-400 01/25/2017 5:01/25/2017 5:18pm Mean Platelet Volume 9.4 UM3 9.4-12.4 [...] Absolute Neutrophils (auto) 6.2 T/MM3 1.8-7.7 01/25/2017 5:112016 5:18pm Absolute Lymphocytes (auto) 2.8 T/MM3 1-4.8 01/25/2017 5:112016 5:18pm Absolute Monocytes (auto) 0.8 T/MM3 0-0.8 01/25/2017 5:01/25/2017 5:18pm Absolute Eosinophils (auto) 0.7 T/MM3 H 0-0.5 01/25/2017 5:11pm 2016 5:18pm Absolute Basophils (auto) 0.1 T/MM3 0-0.2 01/25/2017 5:11pm 01/25/2017 5:18pm Absolute Immature Granulocyte (auto 0.09 T/MM3 H 0.00-0.03 01/25/2017 5: 11pm 01/25/2017 5:18pm D-Dimer < 150 NG/ML 0-230 01/25/2017 5:11pm 01/25/2017 5:48pm <230 NG/ ML D-DU=PRESUMPTIVE NEGATIVE FOR PE OR DVT >230 NG/ML D-DU=ADDITIONAL EVAL FOR PE OR DVT RECOMMENDED Icterus Index < 2 0-7 01/25/2017 5:11pm 01/25/2017 5:29pm Chemistry Specimen Hemolysis < 15 0-25 01/25/2017 5:11pm 01/25/2017 5 :29pm 0-25: Specimen Exhibited No Hemolysis. Turbidity < 20 0-20 01/25/2017 5:11pm 01/25/2017 5:29pm Sodium Level 142 MEQ/L 134-144 01/25/2017 5:1101/25/2017 5:29pm Potassium Level 3.7 MEQ/L 3.6-5 01/25/2017 5:1101/25/2017 5:29pm Chloride Level 101 MEQ/L 98-107 01/25/2017 5:11pm 01/25/2017 5:29pm Carbon Dioxide Level 30 MEQ/L 22-30 01/25/2017 5:1101/25/2017 5: 29pm Anion Gap 11 MEQ/L 5-15 01/25/2017 5:1101/25/2017 5:29pm Blood Urea Nitrogen 15.0 MG/DL 9-01/25/2017 5:11pm 01/25/2017 5: 29pm Creatinine 0.9 MG/DL 0.8-1.5 01/25/2017 5:11pm 01/25/2017 5:29pm BUN/Creatinine Ratio 17 RATIO 6-26 01/25/2017 5:11pm 01/25/2017 5:29pm Glomerular Filtration Rate Calc 89 01/25/2017 5:1101/25/2017 5: 29pm Glucose Level 97 MG/DL 75-110 01/25/2017 5:11pm 01/25/2017 5:29pm Calculated Osmolality 274 MOSM/KG 261-280 01/25/2017 5:1101/25/2017 5:29pm Calcium Level 9.5 MG/DL 8.4-10.2 01/25/2017 5:11pm 01/25/2017 5:29pm Total Bilirubin 0.70 MG/DL 0.20-1.30 01/25/2017 5:11pm 01/25/2017 5: 29pm Alkaline Phosphatase 91 U/L 38-126 01/25/2017 5:11pm 01/25/2017 5:29pm Total Protein 7.2 G/DL 6.3-8.2 01/25/2017 5:11pm 01/25/2017 5:29pm Albumin 4.4 G/DL 3.5-5.0 01/25/2017 5:11pm 01/25/2017 5:29pm Globulin 2.8 G/DL 2.4-3.6 01/25/2017 5:pm 01/25/2017 5:29pm Albumin/Globulin Ratio 1.6 RATIO 1.1-2.2 01/25/2017 5:pm 01/25/2017 5 :29pm Aspartate Amino Transf (AST/SGOT) 46 U/L 17-59 01/25/2017 5:pm 2016 5:29pm Alanine Aminotransferase (ALT/SGPT) 84 U/L H 21-72 01/25/2017 5: 5:29pm Troponin I < 0.012 ng/ml 0-0.12 01/25/2017 5:01/25/2017 5:39pm Troponin values with a difference of [...] Arterial Blood Total CO2 32.6 MEQ/L H 23-27 01/25/2017 4:39pm 2016 4:55pm Arterial Blood Base Excess [...] Date/Time Result Status Blood Culture Peripheral/Iv Start NO GROWTH AFTER 5 DAYS 01/25/2017 5:48pm 01/30/2017 5:51pm Final Procedures Procedure Status Date Provider(s) Withdrawal of arterial blood Completed 12/06/16 Chest x-ray 1 view frontal Completed 12/06/16 Blood gases any combination Completed 12/06/16 Cbt 1st hour Completed 12/06/16 Ther/proph/diag iv inf init Completed 12/06/16 Ther/proph/diag inj sc/im Completed 12/06/16 Ther/proph/diag inj sc/im Completed 12/06/16 Tx/pro/dx inj new drug addon Completed 12/06/16 Tx/pro/dx inj new drug addon Completed 12/06/16 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/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 Completed 12/06/16 Emergency dept visit Completed 12/06/16 EPINEPHRINE MDV 1MG/ML 30ML Completed 12/06/16 057231"INJECTION, DIPHENHYDRAMINE HCL, UP TO 50 MG" Completed [...] addon Completed 12/12/16 Tx/pro/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 Completed 12/12/16 Emergency dept visit Completed 12/12/16 EPINEPHRINE MDV 1MG/ML 30ML Completed 12/12/16"INJECTION, HYDROMORPHONE, UP TO 4 MG" Completed 12/12/16"INJECTION, DIPHENHYDRAMINE HCL, UP TO 50 MG" Completed 12/12/16"INJECTION, DIPHENHYDRAMINE HCL, UP TO 50 MG" Completed 12/12/16"INJECTION, LORAZEPAM, 2 MG" Completed 12/12/16"INJECTION, ONDANSETRON HYDROCHLORIDE, PER 1 MG" Completed 12/12/16"INJECTION, METHYLPREDNISOLONE SODIUM SUCCINATE, UP TO Completed "INJECTION, FENTANYL CITRATE, 0.1 MG" Completed 12/12/16"INJECTION, MAGNESIUM SULFATE, PER 500 MG" Completed 02/06/17 986245"INJECTION, MAGNESIUM SULFATE, PER 500 MG" Completed 12/12/16 7644411% DEXTROSE/WATER (500 ML=1 UNIT) Completed 12/12/16 8975629% DEXTROSE/WATER (500 ML=1 UNIT) Completed 12/12/16 Airway [...] addon Completed 12/21/16 Tx/pro/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 Completed 12/21/16 Tx/pro/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 Completed 12/21/16 Emergency dept visit Completed 12/21/16 EPINEPHRINE MDV 1MG/ML 30ML Completed 12/21/16091832"INJECTION, HYDROMORPHONE, UP TO 4 MG" Completed 12/21/16555365"INJECTION, DIPHENHYDRAMINE HCL, UP TO 50 MG" Completed 12/21/16172008"INJECTION, DIPHENHYDRAMINE HCL, UP TO 50 MG" Completed 12/21/16883675"INJECTION, HEPARIN SODIUM, (HEPARIN LOCK FLUSH), PER Completed 003"INJECTION, LORAZEPAM, 2 MG" Completed 12/21/16666468"INJECTION, LORAZEPAM, 2 MG" Completed 12/21/16504450"INJECTION, METHYLPREDNISOLONE SODIUM SUCCINATE, UP TO Completed 003"INJECTION, MAGNESIUM SULFATE, PER 500 MG" Completed 12/21/16 6874135% DEXTROSE/WATER (500 ML=1 UNIT) Completed 12/21/16 Chest x-ray 2vw frontal&latl Completed 12/23/16 Cbt 1st hour Completed 12/23/16 Ther/proph/diag iv inf init Completed 12/23/16 Ther/proph/diag inj sc/im Completed 12/23/16 Tx/pro/dx inj new drug addon Completed 12/23/16 Tx/pro/dx inj new drug addon Completed 12/23/16 Tx/pro/dx inj new drug addon Completed 12/23/16 Tx/pro/dx inj new drug addon Completed 12/23/16 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/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 Completed 12/23/16 Tx/pro/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 Completed 12/23/16 Tx/pro/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 Completed 12/23/16 Emergency dept visit Completed 12/23/16 EPINEPHRINE MDV 1MG/ML 30ML Completed 12/23/16123788"INJECTION, HYDROMORPHONE, UP TO 4 MG" Completed 12/23/16"INJECTION, HYDROMORPHONE, UP TO 4 MG" Completed 12/23/16"INJECTION, DIPHENHYDRAMINE HCL, UP TO 50 MG" Completed 12/23/16"INJECTION, DIPHENHYDRAMINE HCL, UP TO 50 MG" Completed 12/23/16"INJECTION, DIPHENHYDRAMINE HCL, UP TO 50 MG" Completed 12/23/16037998"INJECTION, HEPARIN SODIUM, (HEPARIN LOCK FLUSH), PER Completed 003"INJECTION, LORAZEPAM, 2 MG" Completed 12/23/16565628"INJECTION, METHYLPREDNISOLONE SODIUM SUCCINATE, UP TO Completed "INJECTION, METHYLPREDNISOLONE SODIUM SUCCINATE, UP TO Completed 003"INJECTION, MAGNESIUM SULFATE, PER 500 MG" Completed 12/23/165% [...] addon Completed 12/28/16 Tx/pro/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 Completed 12/28/16 Emergency dept visit Completed 12/28/16 [...] NORMAL SALINE SOLUTION , 250 CC" Completed 12/28/16096791"ADMINISTERED THROUGH DME, CONCENTRATED FORM, 1 MG" Completed 12/28/16943961"ADMINISTERED THROUGH DME, CONCENTRATED FORM, 1 MG" Completed [...] addon Completed 01/09/17 Tx/pro/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 Completed 01/09/17 Tx/pro/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 Completed 01/09/17 Tx/pro/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 Completed 01/09/17 Tx/pro/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 Completed 01/09/17 Emergency dept visit Completed 01/09/17 EPINEPHRINE MDV 1MG/ML 30ML Completed 01/09/17 EPINEPHRINE MDV 1MG/ML 30ML Completed 01/09/17543000"INJECTION, HYDROMORPHONE, UP TO 4 MG" Completed 01/09/17299281"INJECTION, HYDROMORPHONE, UP TO 4 MG" Completed 01/09/17457525"INJECTION, HYDROMORPHONE, UP TO 4 MG" Completed 01/09/17467894"INJECTION, DIPHENHYDRAMINE HCL, UP TO 50 MG" Completed 01/09/17079329"INJECTION, DIPHENHYDRAMINE HCL, UP TO 50 MG" Completed 01/09/17566723"INJECTION, DIPHENHYDRAMINE HCL, UP TO 50 MG" Completed 01/09/17814535"INJECTION, DIPHENHYDRAMINE HCL, UP TO 50 MG" Completed 01/09/17239803"INJECTION, HEPARIN SODIUM, (HEPARIN LOCK FLUSH), PER Completed 003"INJECTION, LORAZEPAM, 2 MG" Completed 01/09/17943006"INJECTION, METHYLPREDNISOLONE SODIUM SUCCINATE, UP TO Completed 003"INJECTION, MAGNESIUM SULFATE, PER 500 MG" Completed 01/09/17793886"INFUSION, NORMAL SALINE SOLUTION , 1000 CC" Completed 01/09/17542081"INFUSION, NORMAL SALINE SOLUTION , 250 CC" Completed 01/09/17480212"ADMINISTERED THROUGH DME, CONCENTRATED FORM, 1 MG" Completed 01/09/17189878"ADMINISTERED THROUGH DME, CONCENTRATED FORM, 1 MG" Completed 01/09/17 Cbt 1st hour Completed 01/19/17 Cbt each addl hour Completed 01/19/17 Ther/proph/diag iv inf init Completed 01/19/17 Ther/proph/diag inj sc/im Completed 01/19/17 Tx/pro/dx inj new drug addon Completed 01/19/17 Tx/pro/dx inj new drug addon Completed 01/19/17 Tx/pro/dx inj new drug addon Completed 01/19/17 Tx/pro/dx inj new drug addon Completed 01/19/17 Tx/pro/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 Completed 01/19/17 Emergency dept visit Completed 01/19/17 EPINEPHRINE MDV 1MG/ML 30ML Completed 01/19/17 545298"INJECTION, HYDROMORPHONE, UP TO 4 MG" Completed 01/19/17 374039"INJECTION, HYDROMORPHONE, UP TO 4 MG" Completed 01/19/17 888990"INJECTION, DIPHENHYDRAMINE HCL, UP TO 50 MG" Completed 01/19/17 803755"INJECTION, DIPHENHYDRAMINE HCL, UP TO 50 MG" Completed 01/19/17 243076"INJECTION, LORAZEPAM, 2 MG" Completed 01/19/17 634154"INJECTION, METHYLPREDNISOLONE SODIUM SUCCINATE, UP TO Completed 833421"INJECTION, MAGNESIUM SULFATE, PER 500 MG" Completed 01/19/17 975105"ADMINISTERED THROUGH DME, CONCENTRATED FORM, 1 MG" Completed 01/19/17 Comprehen metabolic panel Completed 01/25/17 Blood gases any combination Completed 01/25/17 Assay of lactic acid Completed 01/25/17 Assay of troponin quant Completed 01/25/17 Complete cbc w/auto diff wbc Completed 01/25/17 Fibrin degradation quant Completed 01/25/17 Blood culture for bacteria Completed 01/25/17 Blood culture for bacteria Completed 01/25/17 Influenza a/b ag ia Completed 01/25/17 Cbt 1st hour Completed 01/25/17 Cbt each addl hour Completed 01/25/17 Ther/proph/diag iv inf init Completed 01/25/17 Ther/proph/diag inj sc/im Completed 01/25/17 Tx/pro/dx inj new drug addon Completed 01/25/17 Tx/pro/dx inj new drug addon Completed 01/25/17 Emergency dept visit Completed 01/25/17 EPINEPHRINE MDV 1MG/ML 30ML Completed 01/25/17"INJECTION, DIPHENHYDRAMINE HCL, UP TO 50 MG" Completed 01/25/17"INJECTION, HEPARIN SODIUM, (HEPARIN LOCK FLUSH), PER Completed "INJECTION, METHYLPREDNISOLONE SODIUM SUCCINATE, UP TO Completed "INJECTION, MAGNESIUM SULFATE, PER 500 MG" Completed 01/25/17"INJECTION, MAGNESIUM SULFATE, PER 500 MG" Completed 01/25/17 Encounters Encounter Location Arrival/Admit Date Discharge/Depart Date Attending Provider Departed Emergency Room [facility] 02/11/17 10:21pm 02/12/17 12: 35am MARCHVANIA DO Departed Emergency Room [facility] 01/25/17 4:25pm 01/25/17 7: 00pm JENNIFER ZELAYA MD Departed Emergency Room [facility] 01/19/17 4:26pm 01/19/17 7: 10pm BIANCA CROSS MD Departed Emergency Room [facility] 01/09/17 7:00pm 01/09/17 10: 25pm BIANCA CROSS MD Departed Emergency Room [facility] 12/28/16 7:16pm 12/28/16 10: 38pm VANIA ALEJANDRO DO Departed Emergency Room [facility] 12/23/16 8:51pm 12/24/16 12: 33am BULMARO ZARAGOZA MD Departed Emergency Room [facility] 12/21/16 3:54am 12/21/16 7: 30am BULMARO ZARAGOZA MD Departed Emergency Room [facility] 12/12/16 4:28pm 12/12/16 8: 57pm JORGE LUIS NUNO DO Departed Emergency Room [facility] 12/06/16 3:20pm 12/06/16 5: 21pm JENNIFER ZELAYA MD Recent Diagnosis
--- OUTSIDE RECORDS SUMMARY | 2017-03-02 21:35 | XMS REPORT | Continuity of Care Document ---
Author Author [facility] Organization [facility] Address Unknown Phone Unavailable Support Name Relationship Address Phone ABBIE RAM MD Caregiver [address] [place] [address] [place] [phone] MAHIN FERNANDEZ DO Caregiver [address] [place] [address] PAOLA BHAKTA Next Of Kin [address] [facility], [place] [id number] Insurance Providers Payer Name Policy Number Subscriber Name Relationship [facility] [id number] Paola Bhakta 01 Spouse Advance Directives Directive [...] F (96.8 - 99.1) Temperature (Calculated Celsius) 36.01199 degrees C (36.0 - 37.3) Pulse Rate [...] Encounters Encounter Location Date/Time Departed Emergency Room [facility] 02/11/15 4:36pm Recent Diagnosis
--- NOTE | 2017-03-02 21:46 | ERPDOC ---
Departure Disposition Decision Date: Mar 03, 2017 Disposition Decision Time: 00:01 Disposition: 01 DISCHARGED HOME, SELF-CARE Impression Impression Impression: Primary Impression: ASTHMA EXACERBATION Severity: Moderate Condition: Improved Seen By: Physician only Referrals: MAHIN FERNANDEZ DO (Family) 1 Day Patient Instructions: Asthma (ED) Problems/Meds/Labs Reviewed?: Yes Medications reviewed and manag: Yes Follow up care ordered?: Yes Mental Status: Alert, Oriented HPI - General Medical General Chief Complaint: Dyspnea/Respdistress Stated Complaint: TROUBLE BREATHING Time Seen by Provider: 21:23 Source: patient Exam Limitations: no limitations HPI - General Medical Initial Comments 51-year-old male presents to the emergency department with a chief complaint of a typical asthma exacerbation. Patient states that he noted onset of symptoms approximately 3 days ago. Patient states that he typically develops issues with his asthma when the weather starts to change and turn cool and wet or he is exposed to allergens at work. Patient denies any current pain or discomfort. Patient symptoms have been progressive in a gradual nature since onset. Patient symptoms began while he was at home. Patient denies any other complaints or associated symptoms. This is a typical asthma exacerbation for the patient. Occurred At: home Onset: Gradual Allergies: Coded Allergies: Penicillins (Verified Allergy, Unknown, 01/25/17) aspirin (Verified Allergy, Unknown, 01/25/17) Uncoded Allergies: GUACAMOLE (Allergy, Severe, DYSNEA, 07/31/15) BEE/WASP STINGS (Allergy, Unknown, ANAPHYLAXIS, 12/06/16) Past History Patient Surgical History Port-Placement. Past Medical History Respiratory: asthma Musculoskeletal: back pain Psychological: anxiety Surgical History Denies Surgeries General: other Family History Family History: Negative Family PMH: FOUND: other Vaccines Hx Influenza Vaccination: Yes (fall 2013) Hx Pneumococcal Vaccination: Yes (WITHIN LAST 5 YEARS) Social History Smoking Status: Never smoker Does patient use chewing tobac: No Second Hand Exposure: No Substance Use Type: does not use Alcohol Intake: none Marital Status: Sexuality: female partner Housing: house Household Members: spouse Service: No Current Occupational Status: employed Occupational Hazard: No Review of Systems Constitutional Constitutional: DENIES: chills, fever Eyes General: DENIES: erythema, exudate Lids/Accessories: DENIES: erythema, swelling Vision: DENIES: acuity, blurring ENMT Ears: DENIES: drainage, erythema Hearing: DENIES: hearing loss Balance: DENIES: ataxia, falling to one side Sinuses: DENIES: congestion, pain Nose: DENIES: nosebleeds, pain Mouth/Throat: DENIES: painful swallowing, sore throat Teeth: DENIES: pain Jaw: DENIES: pain Cardiovascular Cardiac: DENIES: chest pain, dyspnea on exertion Rhythm/Rate: DENIES: irregular beat, palpitations Vascular: DENIES: pedal edema, unilateral swelling Pulmonary Respiratory: cough (dry), dyspnea, DENIES: pleuritic chest pain, sputum GI Upper Abdomen: DENIES: nausea, pain, vomiting Lower Abdomen: DENIES: diarrhea, pain General: DENIES: dysuria, frequency Musculoskeletal General: DENIES: joint pain, tenderness Integumentary Skin: DENIES: itching, rash Neurological General: DENIES: change in strength, headache Psychiatric Psychiatric: DENIES: emotional instability, suicidal ideation/attempt Endocrine Endocrine: DENIES: polydipsia, polyphagia Hematologic/Lymphatic Hematologic/Lymphatic: DENIES: frequent nosebleeds, lymphadenopathy Allergic/Immunological Allergic/Immunoligical: DENIES: allergic reactions, hives Physical Exam General General Nourishment: well nourished, well developed, appears stated age, no acute distress, adult General Body Habitus: well groomed Vitals and Pain First Documented Vital Signs Date Time Temp Pulse Resp B/P Pulse Ox O2 Delivery O2 Flow Rate FiO2 03/02/17 21:23 98.1 96 26 134/92 97 Room Air Weight: Kilograms: Height (feet): 5 Height (inches): 10.00 Triage Pain Scale: RN VS reviewed by Provider: Yes Normal Exams: Head: Normocephalic w/o trauma Eyes: Pupils are PERRLA w/ EOMI, No scleral icterus, irritation, or foreign bodies noted ENMT: No facial trauma, nasal exudates, pharyngeal erythema, or exudates are noted Dental: No fractured, loose, or missing teeth noted Neck: Full range of motion, without adenopathy, JVD, bruits or thyromegaly Chest/Resp: with good airflow, and symmetry bilaterally CV: Regular rate and rhythm, without murmur or gallop, Pulses 2+ all extremities, capillary refill, <2 seconds all ext., no pedal edema noted Abdomen: Bowel sounds positive, soft, non-tender, non-distended, no hepatosplenomegaly, masses or bruits noted Lymphatic: No lymphadenopathy, or lymphedema noted Musculoskeletal: No tenderness, or deformity noted, good range of motion, all extremities Integumentary: No rashes, hives, or bruising noted, hair and nails, without abnormality Neurologic: Patient is alert, and oriented, cranial nerves, motor/sensory/ cerebellar, exams w/o gross deficits, to observation Psychiatric: Patient exhibits, appropriate attention, emotion and affect Respiratory (brief) Comments Scattered wheezes bilaterally. Differential Diagnoses Considering: Medication Effect, Metabolic, Other (viral syndrome/asthma exacerbation/) Progress Results/Orders Orders Procedure Category Date Status Time Magnesium Sulfate PHA 03/02/17 Complete (Magnesium Sulfate) 21:30 Hydromorphone PHA 03/02/17 Complete (Dilaudid) 22:15 Albuterol Sulfate PHA 03/02/17 Complete (Proventil 2.5 Mg/3 Ml 22:45 Albuterol Sulfate PHA 03/02/17 Complete (Proventil 2.5 Mg/3 Ml 22:45 Albuterol/Ipratropium PHA 03/02/17 Complete (Duoneb) 22:45 Hydromorphone PHA 03/02/17 Complete (Dilaudid) 23:45 Medications Current ED Medications Magnesium Sulfate (Magnesium Sulfate) 2 g O ONCE IM ; Start 03/02/17 at 21:30; Stop 03/02/17 at 21:31; Status DC Hydromorphone HCl (Dilaudid) 0.5 mg O ONCE IV Last administered on 03/02/17 22:24; Start 03/02/17 at 22:15; Stop 03/02/17 at 22:16; Status DC Albuterol Sulfate (Proventil 2.5 Mg/3 ml) 7.5 mg O ONCE AEROSOL Last administered on 03/02/17 21:40; Start 03/02/17 at 22:45; Stop 03/03/17 at 01:12 ; Status DC Albuterol Sulfate (Proventil 2.5 Mg/3 ml) 2.5 mg O ONCE AEROSOL Last administered on 03/02/17 21:40; Start 03/02/17 at 22:45; Stop 03/03/17 at 01:12 ; Status DC Albuterol/ Ipratropium (Duoneb) 3 ml O PRN AEROSOL 5 Last administered on 22:44; Start 03/02/17 at 22:45; Stop 03/03/17 at 01:12; Status DC Hydromorphone HCl (Dilaudid) 0.25 mg O ONCE IV Last administered on 03/02/17 23:47; Start 03/02/17 at 23:45; Stop 03/02/17 at 23:46; Status DC Progress Progress Protocol for the patient is followed upon arrival to the emergency Department. Patient is given epinephrine 0.5 mg IV times one, Solu-Medrol 125 mg IV 1, patient is given multiple DuoNeb/albuterol treatments with Heliox. Patient is given analgesic pain medication with improvement of symptoms. Patient is markedly improved at re-evaluation. Patient is requesting to be discharged home at this time. Patient is discharged home in accordance with his wishes. He is to follow up as instructed. Patient is to return to the emergency Department if his condition worsens or changes in any manner. Patient is in agreement with the current plan of management. He is to follow up as instructed. Patient is to return to the emergency department his condition worsens or changes in any manner. Patient has a standing order for steroid therapy which he will continue. JORGE LUIS NUNO DO Mar 02, 2017 21:46
[2017-03-02] MEDS ORDERED: HYDROMORPHONE 2mg/ml INJECTION IV ONE ×2 (22:15→23:45)
[2017-03-02] MEDS: ALBUTEROL/IPRATROPIUM INHAL. 2.5mg-0.5mg/3ml Neb. AEROSOL PRN (22:44)
[2017-03-02] MEDS ORDERED: ALBUTEROL INH.SOLN. 2.5mg/3ml (0.083%) Neb. AEROSOL ONE ×2 (22:45)
[2017-03-03] MEDS ORDERED: EPINEPHRINE 1mg/ml INJECTION AMP IM ONE
[2017-03-03] MEDS ORDERED: MAGNESIUM SULFATE IV ONE ×2
[2017-03-03] MEDS ORDERED: DiphenhydrAMINE 50 MG/ML INJECTION IV ONE
[2017-03-03] MEDS ORDERED: NORMAL SALINE IV ONE ×2
[2017-03-03 00:10] VITALS: BP 136/69; PULSE 94; RESP 20; TEMP 98.1; O2SAT 99
== END 2017-03-03 00:10 | disposition home or self-care (01) ==
LOC: ED 21:19
DX: J45.901 Unspecified asthma with (acute) exacerbation (principal)
CPT/HCPCS: 36000; 94644; 96365; 96366; 96372; 96375; 96376; 99284; J0171; J1170; J1200; J1642; J2930; J3475; J7050; J7611

== ENCOUNTER 2017-03-15 16:49 | Emergency (ER) | payer BC ==
[~2017-03-15] VITALS: Ht 177.8 cm; Wt 95.1 kg
[2017-03-15 16:51] VITALS: Ht 177.8 cm; Wt 95.1 kg
--- OUTSIDE RECORDS SUMMARY | 2017-03-15 16:54 | XMS REPORT | Continuity of Care Document ---
Author Author Abdifatah [facility] Organization [facility] Address Unknown Phone Unavailable Support Name Relationship Address Phone ABBIE RAM MD Caregiver [address] [place] [address] [place] [phone] MAHIN FERNANDEZ DO Caregiver [address] [place] [address] PAOLA BHAKTA Next Of Kin [address] [facility], [place] [id number] Insurance Providers Payer Name Policy Number Subscriber Name Relationship [facility] [id number] Paola Bhakta 01 Spouse Advance Directives Directive [...] F (96.8 - 99.1) Temperature (Calculated Celsius) 36.19775 degrees C (36.0 - 37.3) Pulse Rate [...]
--- NOTE | 2017-03-15 16:55 | NUR ---
DR DR VALENTINE AT BEDSIDE.
--- OUTSIDE RECORDS SUMMARY | 2017-03-15 16:56 | XMS REPORT | Continuity of Care Document ---
Author Author [facility] Organization [facility] Address Unknown Phone Unavailable Support Name Relationship Address Phone MAHIN FERNANDEZ DO Caregiver [address] [place] [address] Unavailable JORGE LUIS NUNO DO Caregiver [address] [place] [address] Unavailable PAOLA BHAKTA Next Of Kin [address] [place] [address] Insurance Providers Guarantor Bob Bhakta Address [address] [place] [address] Email [email or web address] Payer [facility] Policy Number [id number] Subscriber's Name Paola Bhakta Relationship 01 Spouse Group Number [id number] Advance Directives Directive Response Recorded Date/Time Advanced Directives Type None 03/02/17 9:23pm Chief Complaint and Reason for Visit Chief Complaint Dyspnea/Respdistress Reason for Visit [id number] EXACERBATION Problems Active Problems Medical Problem Onset Date Status ASTHMA EXACERBATION Unknown Acute Allergic to IV contrast Unknown Acute Anxiety state Unknown Acute Low back pain Unknown Acute Sinusitis Unknown Acute Spondylolisthesis at L4-L5 level Unknown Acute Viral syndrome Unknown Acute Past Problems Medical Problem Onset Date ASTHMA EXACERBATION Unknown Anxiety Unknown Anxiety Unknown Asthma exacerbation Unknown [...] Allergy Relief 50 Mcg/Actuation Nasal) 9.9 Ml [place].susp 2 [place] Nasal Daily 12/06/16 Furosemide 20 Mg Tablet [...] Onset Date Status Hx Substance Use No 03/02/2017 9:43pm Not Applicable Not Applicable Hx Alcohol Use Y OCC 03/02/2017 9:43pm Not Applicable Not Applicable Tobacco Usage none 02/18/2015 6:26pm Not Applicable Not Applicable Query Response Start Date Stop Date Smoking Status Never smoker Hospital Discharge Instructions No hospital discharge instructions. Plan of Care Discharge Date 03/03/17 12:10am Disposition 01 DISCHARGED HOME, SELF-CARE Condition at Discharge Improved Instructions/Education Provided Asthma (ED) Prescriptions See Medication Section Referrals MAHIN FERNANDEZ DO Order Date: 1 Day Address: [address] [address] [address] [place] [phone] Note: Care Plan and Goals Physician Care Plan Problem: Acute Asthma Exacerbation Goal: Follow up with primary care provider [...] Y fall 201308/05/15 2:30pm DTaP Vaccine History 200903/02/17 9:43pm Influenza Vaccine Hx 201503/02/17 9:43pm Tdap Vaccine Hx NO BROKEN SKIN 06/08/16 9:23pm Vital Signs Acute Vital Signs Vital Response Date/Time Temperature (Fahrenheit) 98.1 deg F (96.8 - 99.1) 03/02/2017 9:23pm Temperature (Calculated Celsius) 36.84432 degrees C (36.0 - 37.3) 03/02/2017 9:23pm Pulse Rate (adult) 96 bpm (60 - 100) 03/02/2017 9:23pm Respiratory Rate 16 breaths/min (10 - 20) 03/02/2017 11:47pm O2 Sat by Pulse Oximetry 97 % (90 - 100) 03/02/2017 9:23pm Oxygen Flow Rate 10.00 L/min 01/19/2017 6:45pm Blood Pressure 134/92 mm Hg 03/02/2017 9:23pm Height (Feet) 5 feet 03/02/2017 9:23pm Height (Inches) 10.00 inches 03/02/2017 9:23pm Weight (Kilograms) 91.300 kg 03/02/2017 9:23pm Body Mass Index (BMI) 28.0 02/11/2017 10:21pm [...] Corpuscular Hemoglobin Concent 34.9 GM/DL 31-37 01/25/2017 5:01/25/2017 5:18pm RDW Standard Deviation 40.9 FL 36.9-50.2 01/25/2017 5:01/25/2017 5 :18pm Platelet Count 239 T/MM3 130-400 01/25/2017 5:01/25/2017 5:18pm Mean Platelet Volume 9.4 UM3 9.4-12.4 01/25/2017 5:01/25/2017 5: 18pm Neutrophils (%) (Auto) 58.5 % 33-66 01/25/2017 5:01/25/2017 5: 18pm Lymphocytes (%) (Auto) 26.2 % [...] 5:1101/25/2017 5: 29pm Anion Gap 11 MEQ/L 5-01/25/2017 5:1101/25/2017 5:29pm Blood Urea Nitrogen 15.0 MG/DL 9-01/25/2017 5:1101/25/2017 5: 29pm Creatinine 0.9 MG/DL 0.8-1.5 01/25/2017 5:11pm 01/25/2017 5:29pm BUN/Creatinine Ratio 17 RATIO 6-01/25/2017 5:11pm 01/25/2017 5:29pm Glomerular Filtration Rate Calc 89 01/25/2017 5:11pm 01/25/2017 5: 29pm Glucose Level 97 MG/DL 75-110 01/25/2017 5:1101/25/2017 5:29pm Calculated Osmolality 274 MOSM/KG 261-280 01/25/2017 5:11pm 01/25/2017 5:29pm Calcium Level 9.5 MG/DL 8.4-10.2 01/25/2017 [...] Troponin I < 0.012 ng/ml 0-0.12 01/25/2017 5:pm 01/25/2017 5:39pm Troponin values with a difference [...] addon Completed 12/06/16 Tx/pro/dx inj same drug health coordinator Completed 12/06/16 Emergency dept visit Completed 12/06/16 EPINEPHRINE MDV 1MG/ML 30ML Completed 12/06/16"INJECTION, DIPHENHYDRAMINE HCL, UP TO 50 MG" Completed 12/06/16 [id number]"INJECTION, DIPHENHYDRAMINE HCL, UP TO 50 MG" Completed [...] addon Completed 12/12/16 Tx/pro/dx inj same drug health coordinator Completed 12/12/16 Emergency dept visit Completed 12/12/16 [...] 12/12/165% DEXTROSE/WATER (500 ML=1 UNIT) Completed 12/12/16 [id number]% DEXTROSE/WATER (500 ML=1 UNIT) Completed 12/12/16 Airway [...] addon Completed 12/21/16 Tx/pro/dx inj same drug health coordinator Completed 12/21/16 Tx/pro/dx inj same drug health coordinator Completed 12/21/16 Emergency dept visit Completed 12/21/16 EPINEPHRINE MDV 1MG/ML 30ML Completed 12/21/16 281481"INJECTION, HYDROMORPHONE, UP TO 4 MG" Completed 12/21/16854321"INJECTION, DIPHENHYDRAMINE HCL, UP TO 50 MG" Completed 12/21/16813220"INJECTION, DIPHENHYDRAMINE HCL, UP TO 50 MG" Completed 12/21/16728525"INJECTION, HEPARIN SODIUM, (HEPARIN LOCK FLUSH), PER Completed 003"INJECTION, LORAZEPAM, 2 MG" Completed 12/21/16077463"INJECTION, LORAZEPAM, 2 MG" Completed 12/21/16749342"INJECTION, METHYLPREDNISOLONE SODIUM SUCCINATE, UP TO Completed 003"INJECTION, MAGNESIUM SULFATE, PER 500 MG" Completed 12/21/16 1754065% DEXTROSE/WATER (500 ML=1 UNIT) Completed 12/21/16 Chest x-ray 2vw frontal&latl Completed 12/23/16 Cbt 1st hour Completed 12/23/16 Ther/proph/diag iv inf init Completed 12/23/16 Ther/proph/diag inj sc/im Completed 12/23/16 Tx/pro/dx inj new drug addon Completed 12/23/16 Tx/pro/dx inj new drug addon Completed 12/23/16 Tx/pro/dx inj new drug addon Completed 12/23/16 Tx/pro/dx inj new drug addon Completed 12/23/16 Tx/pro/dx inj same drug health coordinator Completed 12/23/16 Tx/pro/dx inj same drug health coordinator Completed 12/23/16 Tx/pro/dx inj same drug health coordinator Completed 12/23/16 Emergency dept visit Completed 12/23/16 EPINEPHRINE MDV 1MG/ML 30ML Completed 12/23/16439937"INJECTION, HYDROMORPHONE, UP TO 4 MG" Completed 12/23/16"INJECTION, HYDROMORPHONE, UP TO 4 MG" Completed 12/23/16"INJECTION, DIPHENHYDRAMINE HCL, UP TO 50 MG" Completed 12/23/16"INJECTION, DIPHENHYDRAMINE HCL, UP TO 50 MG" Completed 12/23/16"INJECTION, DIPHENHYDRAMINE HCL, UP TO 50 MG" Completed 12/23/16"INJECTION, HEPARIN SODIUM, (HEPARIN LOCK FLUSH), PER Completed 003"INJECTION, LORAZEPAM, 2 MG" Completed 12/23/16"INJECTION, METHYLPREDNISOLONE SODIUM [...] addon Completed 12/28/16 Tx/pro/dx inj same drug health coordinator Completed 12/28/16 Emergency dept visit Completed 12/28/16 [...] NORMAL SALINE SOLUTION , 250 CC" Completed 12/28/16810421"ADMINISTERED THROUGH DME, CONCENTRATED FORM, 1 MG" Completed 12/28/16331538"ADMINISTERED THROUGH DME, CONCENTRATED FORM, 1 MG" Completed [...] addon Completed 01/09/17 Tx/pro/dx inj same drug health coordinator Completed 01/09/17 Tx/pro/dx inj same drug health coordinator Completed 01/09/17 Tx/pro/dx inj same drug health coordinator Completed 01/09/17 Tx/pro/dx inj same drug health coordinator Completed 01/09/17 Emergency dept visit Completed 01/09/17 EPINEPHRINE MDV 1MG/ML 30ML Completed 01/09/17 EPINEPHRINE MDV 1MG/ML 30ML Completed 01/09/17 456964"INJECTION, HYDROMORPHONE, UP TO 4 MG" Completed 01/09/17159146"INJECTION, HYDROMORPHONE, UP TO 4 MG" Completed 01/09/17105865"INJECTION, HYDROMORPHONE, UP TO 4 MG" Completed 01/09/17059251"INJECTION, DIPHENHYDRAMINE HCL, UP TO 50 MG" Completed 01/09/17283631"INJECTION, DIPHENHYDRAMINE HCL, UP TO 50 MG" Completed 01/09/17318716"INJECTION, DIPHENHYDRAMINE HCL, UP TO 50 MG" Completed 01/09/17965574"INJECTION, DIPHENHYDRAMINE HCL, UP TO 50 MG" Completed 01/09/17594689"INJECTION, HEPARIN SODIUM, (HEPARIN LOCK FLUSH), PER Completed 003"INJECTION, LORAZEPAM, 2 MG" Completed 01/09/17192769"INJECTION, METHYLPREDNISOLONE SODIUM SUCCINATE, UP TO Completed 003"INJECTION, MAGNESIUM SULFATE, PER 500 MG" Completed 01/09/17183511"INFUSION, NORMAL SALINE SOLUTION , 1000 CC" Completed 01/09/17216014"INFUSION, NORMAL SALINE SOLUTION , 250 CC" Completed 01/09/17 487560"ADMINISTERED THROUGH DME, CONCENTRATED FORM, 1 MG" Completed 01/09/17067727"ADMINISTERED THROUGH DME, CONCENTRATED FORM, 1 MG" Completed 01/09/17 Cbt 1st hour Completed 01/19/17 Cbt each addl hour Completed 01/19/17 Ther/proph/diag iv inf init Completed 01/19/17 Ther/proph/diag inj sc/im Completed 01/19/17 Tx/pro/dx inj new drug addon Completed 01/19/17 Tx/pro/dx inj new drug addon Completed 01/19/17 Tx/pro/dx inj new drug addon Completed 01/19/17 Tx/pro/dx inj new drug addon Completed 01/19/17 Tx/pro/dx inj same drug health coordinator Completed 01/19/17 Emergency dept visit Completed 01/19/17 EPINEPHRINE MDV 1MG/ML 30ML Completed 01/19/17 531057"INJECTION, HYDROMORPHONE, UP TO 4 MG" Completed 01/19/17 896015"INJECTION, HYDROMORPHONE, UP TO 4 MG" Completed 01/19/17 853324"INJECTION, DIPHENHYDRAMINE HCL, UP TO 50 MG" Completed 01/19/17 232051"INJECTION, DIPHENHYDRAMINE HCL, UP TO 50 MG" Completed 01/19/17 111945"INJECTION, LORAZEPAM, 2 MG" Completed 01/19/17 629377"INJECTION, METHYLPREDNISOLONE SODIUM SUCCINATE, UP TO Completed 127300"INJECTION, MAGNESIUM SULFATE, PER 500 MG" Completed 01/19/17 999050"ADMINISTERED THROUGH DME, CONCENTRATED FORM, 1 MG" Completed [...] Completed 01/25/17 EPINEPHRINE MDV 1MG/ML 30ML Completed 03/22/17 625199"INJECTION, DIPHENHYDRAMINE HCL, UP TO 50 MG" Completed 01/25/17547209"INJECTION, HEPARIN SODIUM, (HEPARIN LOCK FLUSH), PER Completed 003"INJECTION, METHYLPREDNISOLONE SODIUM SUCCINATE, UP TO Completed 003"INJECTION, MAGNESIUM SULFATE, PER 500 MG" Completed 01/25/17640363"INJECTION, MAGNESIUM SULFATE, PER 500 MG" Completed 01/25/17 Place needle in vein Completed 02/11/17 Chest x-ray 1 view frontal Completed 02/11/17 Electrocardiogram tracing Completed 02/11/17 Cbt 1st hour Completed 02/11/17 Hydrate iv infusion add-on Completed 02/11/17 Ther/proph/diag iv inf init Completed 02/11/17 Ther/proph/diag inj sc/im Completed 02/11/17 Tx/pro/dx inj new drug addon Completed 02/11/17 Tx/pro/dx inj new drug addon Completed 02/11/17 Tx/pro/dx inj new drug addon Completed 02/11/17 Tx/pro/dx inj new drug addon Completed 02/11/17 Tx/pro/dx inj new drug addon Completed 02/11/17 Tx/pro/dx inj same drug health coordinator Completed 02/11/17 Emergency dept visit Completed 02/11/17 EPINEPHRINE MDV 1MG/ML 30ML Completed 02/11/17804236"INJECTION, HYDROMORPHONE, UP TO 4 MG" Completed 02/11/17349357"INJECTION, DIPHENHYDRAMINE HCL, UP TO 50 MG" Completed 02/11/17522954"INJECTION, DIPHENHYDRAMINE HCL, UP TO 50 MG" Completed 02/11/17243866"INJECTION, HEPARIN SODIUM, (HEPARIN LOCK FLUSH), PER Completed 003"INJECTION, LORAZEPAM, 2 MG" Completed 02/11/17"INJECTION, METHYLPREDNISOLONE SODIUM SUCCINATE, UP TO Completed 003"INJECTION, MAGNESIUM SULFATE, PER 500 MG" Completed 02/11/17051019"INJECTION, MAGNESIUM SULFATE, PER 500 MG" Completed 02/11/17801552"INFUSION, NORMAL SALINE SOLUTION , 1000 CC" Completed 02/11/17477657"ADMINISTERED THROUGH DME, CONCENTRATED FORM, 1 MG" Completed 02/11/17 Encounters Encounter Location Arrival/Admit Date Discharge/Depart Date Attending Provider Departed Emergency Room [facility] 03/02/17 9:19pm 03/03/17 12: 10am JORGE LUIS NUNO DO Departed Emergency Room [facility] 02/11/17 10:21pm 02/12/17 12: 35am MARCHVANIA DO Departed Emergency Room [facility] 01/25/17 4:25pm 01/25/17 7: 00pm JENNIFER ZELAYA MD Departed Emergency Room [facility] 01/19/17 4:26pm 01/19/17 7: 10pm BIANCA CROSS MD Departed Emergency Room [facility] 01/09/17 7:00pm 01/09/17 10: 25pm BIANCA CROSS MD Departed Emergency Room [facility] 12/28/16 7:16pm 12/28/16 10: 38pm MARCHVANIA DO Departed Emergency Room [facility] 12/23/16 8:51pm 12/24/16 12: 33am BULMARO ZARAGOZA MD Departed Emergency Room [facility] 12/21/16 3:54am 12/21/16 7: 30am BULMARO ZARAGOZA MD Departed Emergency Room [facility] 12/12/16 4:28pm 12/12/16 8: 57pm JORGE LUIS NUNO DO Departed Emergency Room [facility] 12/06/16 3:20pm 12/06/16 5: 21pm JENNIFER ZELAYA MD Recent Diagnosis
--- NOTE | 2017-03-15 17:01 | ERPDOC ---
Departure Disposition Decision Date: March 15, 2017 (AKPIL VALENTINE DO) Disposition Decision Time: 19:39 (BULMARO ZARAGOZA MD) Disposition: 01 DISCHARGED HOME, SELF-CARE Impression Impression (KAPIL VALENTINE DO) Impression: Primary Impression: ASTHMA EXACERBATION Severity: Severe (BULMARO ZARAGOZA MD) Condition: Improved Seen By: Physician only (BULMARO ZARAGOZA MD) Referrals: MAHIN FERNANDEZ DO (Family) Patient Instructions: Asthma (ED) Problems/Meds/Labs Reviewed?: Yes Medications reviewed and manag: Yes (BULMARO ZARAGOZA MD) Additional Instructions: Take your routine medications as prescribed Return immediately for any significant worsening Follow up care ordered?: Yes Mental Status: Alert (BULMARO ZARAGOZA MD) HPI - Dyspnea General Chief Complaint: Adult-Asthma Stated Complaint: DIFF BREATHING Time Seen by Provider: 17:00 Source: patient (Patient presents to the ER with dyspnea, which has apparently been progressing throughout the day. Patient believes the trigger was humidity. ) Exam Limitations: no limitations (KAPIL VALENTINE DO) Time Seen by Provider: 17:53 (BULMARO ZARAGOZA MD) HPI - Dyspnea Occurred At: home Onset/Timing: Changing over time Duration: 6-12 hrs Pain/Severity Scale: Now & Worst: 0/10 Severity: moderate Activities at Onset: activity Prior Episodes/Possible Cause: frequent episodes Modifying Factors: IMPROVES WITH: inhaler, nebulizer, oxygen, rest, WORSE WITH : activity, coughing Associated Symptoms: cough, malaise, other, shortness of breath, DENIES: chest pain, diaphoresis, fever/chills, headaches, loss of appetite, nausea/vomiting, rash, seizure, syncope, weakness Aspirin Treatment Today: unknown Hx of Similar Symptoms: Yes (KAPIL VALENTINE DO) Allergies: Coded Allergies: Penicillins (Verified Allergy, Unknown, 03/15/17) aspirin (Verified Allergy, Unknown, 03/15/17) Uncoded Allergies: GUACAMOLE (Allergy, Severe, DYSNEA, 07/31/15) BEE/WASP STINGS (Allergy, Unknown, ANAPHYLAXIS, 12/06/16) Past History Patient Surgical History Port-Placement. (KAPIL VALENTINE DO) Past Medical History Respiratory: asthma Musculoskeletal: back pain Psychological: anxiety (KAPIL VALENTINE DO) Surgical History Denies Surgeries General: other (SERGE,KAPIL DO) Family History Family PMH: FOUND: other (SERGE,KAPIL DO) Vaccines Hx Influenza Vaccination: Yes (fall 2013) Hx Pneumococcal Vaccination: Yes (WITHIN LAST 5 YEARS) (DANIEL VALENTINEIN DO) Social History Smoking Status: Unknown if ever smoked Does patient use chewing tobac: No Second Hand Exposure: No Substance Use Type: does not use Alcohol Intake: none Marital Status: Sexuality: female partner Housing: house Household Members: spouse Service: No Current Occupational Status: employed Occupational Hazard: No Advance Directives: Yes Full Code (SERGE,KAPIL DO) Record Review Pertinent history updated: Yes (SERGE,KAPIL DO) Review of Systems Constitutional Constitutional: DENIES: chills, fever (SERGE,KAPIL DO) Eyes Lids/Accessories: DENIES: erythema, swelling (SERGE,KAPIL DO) ENMT Ears: DENIES: erythema, pain Balance: DENIES: ataxia, vertigo Sinuses: DENIES: congestion, rhinorrhea Mouth/Throat: DENIES: sore throat (SERGE,KAPIL DO) Cardiovascular Cardiac: dyspnea on exertion, orthopnea, DENIES: chest pain Rhythm/Rate: tachycardia (SERGE,KAPIL DO) Pulmonary Respiratory: cough, dyspnea, tachypnea, DENIES: sputum (SERGE,KAPIL DO) GI Upper Abdomen: DENIES: nausea, pain, vomiting Lower Abdomen: DENIES: constipation, diarrhea, pain (SERGE,KAPIL DO) General: DENIES: dysuria (SERGE,KAPIL DO) Musculoskeletal General: DENIES: cramps, pain, weakness (SERGE,KAPIL DO) Integumentary Skin: DENIES: color change, itching, rash (SERGE,KAPIL DO) Neurological General: DENIES: ataxia, change in strength, headache, numbness, poor coordination, seizures, syncope, vertigo, weakness (SERGE,KAPIL DO) Psychiatric Psychiatric: DENIES: anxiety, depression, nervousness (SERGE,KAPIL DO) Hematologic/Lymphatic Hematologic/Lymphatic: DENIES: anemia (SERGE,KAPIL DO) Allergic/Immunological Allergic/Immunoligical: DENIES: sneezing (SERGE,KAPIL DO) All other Systems All Other Systems: Reviewed and Negative (SERGE,KAPIL DO) Physical Exam General General Nourishment: well nourished, well developed, appears stated age, adult General Body Habitus: well groomed (KAPIL VALENTINE DO) Vitals and Pain First Documented Vital Signs Date Time Temp Pulse Resp B/P Pulse Ox O2 Delivery O2 Flow Rate FiO2 03/15/17 16:51 98.0 97 24 176/86 98 Room Air (BULMARO ZARAGOZA MD) Vitals and Pain Weight: Kilograms: Height (feet): 5 Height (inches): 10.00 Triage Pain Scale: (KAPIL VALENTINE DO) RN VS reviewed by Provider: Yes (KAPIL VALENTINE DO) Eyes (brief) Eyes Brief: found: EOMI, PERRL (DANIEL VALENTINEIN DO) ENMT (brief) ENMT Brief: FOUND: TM clear, TM good light reflex, mucosa moist, NOT FOUND: pharnyx erythema (SERGEDANIELKAPIL DO) Neck (brief) Neck: FOUND: trachea midline, NOT FOUND: adenopathy, tenderness, tracheal deviation (SERGEDANIELKAPIL DO) Respiratory Inspection: FOUND: audible wheezing, increased effort, tachypnea, NOT FOUND: asymmetry, audible stridor Palpation: NOT FOUND: tenderness Auscultation: FOUND: wheezes, NOT FOUND: rales, rhonchi (SERGEKAPIL DO) Cardiovascular (brief) Cardiac: FOUND: regular rhythm, NOT FOUND: regular rate (sinus tachycardia) Capillary Refill: <2 sec Pulses: all distal extremities (SERGEDANIELKAPIL DO) Abdomen (brief) Abdominal Brief: FOUND: bowel normo active x4, soft, tender, NOT FOUND: distended (SERGE,KAPIL DO) Lymphatic (brief) Lymphatic Brief: NOT FOUND: adenopathy (SERGE,KAPIL DO) Musculoskeletal (brief) Musculoskeletal Brief: NOT FOUND: spasm, tenderness (SERGE,KAPIL DO) Integumentary (brief) Integumentary Brief: FOUND: pink, warm (SERGE,KAPIL DO) Neurologic (brief) Neurological Brief: FOUND: CN w/o gross def to obs, gait w/o gross def to obs, motor-no gross deficits, sensory-no gross deficits, NOT FOUND: ataxia (KAPIL VALENTINE DO) Psychiatric (brief) Psychiatric Brief: FOUND: alert, attentive, normal affect, oriented (KAPIL VALENTINE DO) Differential Diagnoses Considering: Acute Bronchitis, Acute MO, Acute Respiratory Failure, Angioedema , Asthma Exacerbation, CHF, COPD Exacerbation, Influenza, Pneumonia, Pneumothorax, Pulmonary Edema, Pulmonary Embolus, Viral Syndrome, Other (KAPIL VALENTINE DO) Progress Results/Orders Orders Procedure Category Date Status Time Epinephrine PHA 03/15/17 Complete (Adrenalin) 17:15 Albuterol/Ipratropium PHA 03/15/17 Complete (Duoneb) 17:15 Diphenhydramine PHA 03/15/17 Complete (Benadryl) 17:15 Methylprednisolone PHA 03/15/17 Complete Sod Succ (Solu-Medrol 17:15 Bmp - Basic Metabolic LAB 03/15/17 Complete Panel 17:04 Blood Gas, Arterial - LAB 03/15/17 Complete ABG 17:04 Probnp LAB 03/15/17 Complete 17:04 Cbc W/Auto LAB 03/15/17 Complete Diff-Reflex Manual 17:04 Troponin I W LAB 03/15/17 Complete Hemolysis Index 17:04 EKG EKG 03/15/17 Logged 17:04 Chest 1 View RAD 03/15/17 Taken 17:04 Iv Lock (Ed Only) EDM 03/15/17 Transmitted 17:04 Oxygen Administration EDM 03/15/17 Transmitted 17:04 Magnesium Sulfate PHA 03/15/17 In Process (Magnesium Sulfate) 17:15 Hydromorphone PHA 03/15/17 Complete (Dilaudid) 18:00 Albuterol/Ipratropium PHA 03/15/17 Complete (Duoneb) 18:00 Diphenhydramine PHA 03/15/17 Complete (Benadryl) 18:00 Epinephrine PHA 03/15/17 Complete (Adrenalin) 18:00 (BULMARO ZARAGOZA MD) Lab Results Laboratory Tests Test 03/15/17 17:11 03/15/17 17:18 White Blood Count 7.6T/MM3 Red Blood Count 4.45M/MM3 Hemoglobin 13.6GM/DL Hematocrit 39.4% Mean Corpuscular Volume 88.5UM3 Mean Corpuscular Hemoglobin 30.6UUG Mean Corpuscular Hemoglobin Concent 34.5GM/DL RDW Standard Deviation 41.7FL Platelet Count 287T/MM3 Mean Platelet Volume 9.7UM3 Immature Granulocyte % (Auto) 0.3% Neutrophils (%) (Auto) 61.0% Lymphocytes (%) (Auto) 23.2% Monocytes (%) (Auto) 4.5% Eosinophils (%) (Auto) 10.5% Basophils (%) (Auto) 0.5% Absolute Immature Granulocyte (auto 0.02T/MM3 Absolute Neutrophils (auto) 4.6T/MM3 Absolute Lymphocytes (auto) 1.8T/MM3 Absolute Monocytes (auto) 0.3T/MM3 Absolute Eosinophils (auto) 0.8T/MM3 Absolute Basophils (auto) 0.0T/MM3 Turbidity < 20 Sodium Level 144MEQ/L Potassium Level 3.6MEQ/L Chloride Level 105MEQ/L Carbon Dioxide Level 25MEQ/L Anion Gap 14MEQ/L Blood Urea Nitrogen 28.0MG/DL Creatinine 0.9MG/DL Glomerular Filtration Rate Calc 89 BUN/Creatinine Ratio 31RATIO Glucose Level 144MG/DL Calculated Osmolality 286MOSM/KG Calcium Level 8.8MG/DL Icterus Index < 2 Troponin I < 0.012ng/ml RL-Lyy-T-Type Natriuretic Peptide 29PG/ML Chemistry Specimen Hemolysis < 15 Arterial Blood pH 7.370 Arterial Blood Partial Pressure CO2 52MMHG Arterial Blood pO2 at Patient Temp 39MMHG Arterial Blood HCO3 30MEQ/L Arterial Blood Total CO2 31.7MEQ/L Arterial Blood Oxygen Saturation 72.0% Arterial Blood Base Excess 3.7MMOL/L Oxygen Delivery Method (LAB) Nrb mask, liters Blood Gas Oxygen Liter Flow 11 Blood Gas Oxygen Percent Given 20 Blood Gas Vent Rate Blood Gas Tidal Volume ML (BULMARO ZARAGOZA MD) Medications Current ED Medications Epinephrine HCl (Adrenalin) 0.5 mg O ONCE IM Last administered on 03/15/17 17 :19; Start 03/15/17 at 17:15; Stop 03/15/17 at 17:16; Status DC Albuterol/ Ipratropium (Duoneb) 18 ml O ONCE AEROSOL Last administered on 03/15 17:07; Start 03/15/17 at 17:15; Stop 03/15/17 at 17:16; Status DC Diphenhydramine HCl (Benadryl) 50 mg O ONCE IV Last administered on 03/15/17 17:22; Start 03/15/17 at 17:15; Stop 03/15/17 at 17:16; Status DC Methylprednisolone Sodium Succinate 125 mg 125 mg O ONCE IV Last administered on 03/15/17 17:19; Start 03/15/17 at 17:15; Stop 03/15/17 at 17:16; Status DC Magnesium Sulfate/ Sodium Chloride (Magnesium Sulfate/NS) 104 ml @ 25 mls/hr O ONCE IV Last administered on 03/15/17 17:33; Start 03/15/17 at 17:15; Stop 03/15/17 at 21:24 Hydromorphone HCl (Dilaudid) 0.5 mg O ONCE IV Last administered on 03/15/17 18:24; Start 03/15/17 at 18:00; Stop 03/15/17 at 18:01; Status DC Albuterol/ Ipratropium (Duoneb) 12 ml O ONCE AEROSOL Last administered on 03/15 18:02; Start 03/15/17 at 18:00; Stop 03/15/17 at 18:01; Status DC Diphenhydramine HCl (Benadryl) 50 mg O ONCE IV Last administered on 03/15/17 18:21; Start 03/15/17 at 18:00; Stop 03/15/17 at 18:01; Status DC Epinephrine HCl (Adrenalin) 0.3 mg O ONCE IM Last administered on 03/15/17 18 :19; Start 03/15/17 at 18:00; Stop 03/15/17 at 18:01; Status DC (BULMARO ZARAGOZA MD) Progress Progress Case discussed with Dr. Zaragoza at 18:00 hrs, Dr. aZragoza assumed care for the patient, and will make final disposition (KAPIL VALENTINE DO) Progress 1745 - Feeling some better but persistent chest tightness with deep wheezes, glottic tightness and extended expiratory phase. Discussed with Pt, will give additional Epi, Benadryl, 4 duoneb, and Dilaudid 0.5mg IV - After second dose of medications, patient recovered to his normal baseline, and feels like he is able to go home at this time (BULMARO ZARAGOZA MD) Xray Xray : Reason for Exam: Dyspnea Xray: CXR Portable Interpretation: Normal, Interpreted by Me (KAPIL VALENTINE DO) KAPIL VALENTINE DO March 15, 2017 17:01 BULMARO ZARAGOZA MD March 15, 2017 17:59
--- OUTSIDE RECORDS SUMMARY | 2017-03-15 17:11 | XMS REPORT | Continuity of Care Document ---
Author Author Abdifatah [facility] Organization [facility] Address Unknown Phone Unavailable Support Name Relationship Address Phone ABBIE RAM MD Caregiver [address] [place] [address] [place] [phone] MAHIN FERNANDEZ DO Caregiver [address] [place] [address] PAOLA BHAKTA Next Of Kin [address] [facility], [place] [id number] Insurance Providers Payer Name Policy Number Subscriber Name Relationship [facility] [id number] Paola Bhakta 01 Spouse Advance Directives Directive [...] F (96.8 - 99.1) Temperature (Calculated Celsius) 36.67193 degrees C (36.0 - 37.3) Pulse Rate [...] Encounters Encounter Location Date/Time Departed Emergency Room [facility] 02/11/15 4:36pm Recent Diagnosis
[2017-03-15] MEDS ORDERED: ALBUTEROL/IPRATROPIUM INHAL. 2.5mg-0.5mg/3ml Neb. AEROSOL ONE ×2 (17:15→18:00)
[2017-03-15] MEDS ORDERED: MAGNESIUM SULFATE IV ONE (17:15)
[2017-03-15] MEDS ORDERED: EPINEPHRINE 1mg/ml INJECTION AMP IM ONE ×2 (17:15→18:00)
[2017-03-15] MEDS ORDERED: NORMAL SALINE IV ONE (17:15)
[2017-03-15] MEDS ORDERED: DiphenhydrAMINE 50 MG/ML INJECTION IV ONE ×2 (17:15→18:00)
[2017-03-15 17:23] LABS: BASOPHILS % (AUTO) 0.5 % (0-2); EOSINOPHILS # (AUTO) 0.8 T/MM3 (0-0.5); EOSINOPHILS % (AUTO) 10.5 % (0-4); HCT - HEMATOCRIT 39.4 % (41-53); HGB - HEMOGLOBIN 13.6 GM/DL (13.5-17.5); IMMATURE GRANULOCYTE # (AUTO) 0.02 T/MM3 (0.00-0.03); IMMATURE GRANULOCYTE % (AUTO) 0.3 % (0.0-0.5); LYMPHOCYTES # (AUTO) 1.8 T/MM3 (1-4.8); LYMPHOCYTES % (AUTO) 23.2 % (23-45); MEAN CORPUSCULAR HGB 30.6 UUG (26-34); MEAN CORPUSCULAR HGB CONC(MCHC 34.5 GM/DL (31-37); MEAN CORPUSCULAR VOLUME 88.5 UM3 (80-100); MEAN PLATELET VOLUME 9.7 UM3 (9.4-12.4); MONOCYTES # (AUTO) 0.3 T/MM3 (0-0.8); MONOCYTES % (AUTO) 4.5 % (0-9.0); NEUTROPHILS #(AUTO)-ABSOLUTE 4.6 T/MM3 (1.8-7.7); RED BLOOD COUNT 4.45 M/MM3 (4.50-5.90); WBC - WHITE BLOOD COUNT 7.6 T/MM3 (4.5-11.0)
--- NOTE | 2017-03-15 17:29 | NUR ---
DR DR VALENTINE AT BEDSIDE.
--- NOTE | 2017-03-15 17:30 | NUR ---
MED/STATUS PT GIVEN INSTRUCTION REGARDING MAGNESIUM. UNDERSTANDING VERBALIZED. PT CONTINUES IN FULLY UPRIGHT POSITION, WHEEZES REMAIN.
[2017-03-15 17:31] LABS: ANION GAP 14 MEQ/L (5-15); BUN/CREATININE RATIO 31 RATIO (6-26); CALCIUM 8.8 MG/DL (8.4-10.2); CHLORIDE 105 MEQ/L (98-107); CO2 - CARBON DIOXIDE 25 MEQ/L (22-30); CREATININE 0.9 MG/DL (0.8-1.5); GLOMERULAR FILTRATION RATE 89; GLUCOSE 144 MG/DL (75-110); POTASSIUM 3.6 MEQ/L (3.6-5); SODIUM 144 MEQ/L (134-144)
[2017-03-15] MEDS ORDERED: ALPR0.5T8 PO (17:35)
[2017-03-15] MEDS ORDERED: GABA-338 PO (17:35)
[2017-03-15 17:39] LABS: PROBNP 29 PG/ML (0-175)
[2017-03-15] MEDS ORDERED: HYDROMORPHONE 2mg/ml INJECTION IV ONE (18:00)
--- NOTE | 2017-03-15 18:21 | NUR ---
MEDS PT GIVEN INSTRUCTION REGARDING BENADRYL AND DILUADID. UNDERSTANDING VERBALIZED.
--- NOTE | 2017-03-15 18:35 | NUR ---
EKG DISCUSSED ORDER WITH DR ZARAGOZA, PER , DO NOT OBTAIN AT THIS TIME.
--- NOTE | 2017-03-15 19:21 | NUR ---
STATUS PT RESTING, FULLY UPRIGHT IN BED. EYES CLOSED. PT STATES "I FEEL A LOT BETTER." PT CALM. PT REPORTS IMPROVED PAIN, NOW 4/10. EXPIRATORY WHEEZES REMAIN ALL LOUISE, PT REMAINS MORE DIMINISHED TO R SIDE, HOWEVER WHEEZES MORE FAINT AND LESS FREQUENT. RESPIRATIONS NON-LABORED.
--- NOTE | 2017-03-15 19:38 | NUR ---
DR DR ZARAGOZA AT BEDSIDE.
[2017-03-15 19:52] VITALS: BP 122/60; PULSE 119; RESP 18; TEMP 98; O2SAT 100
--- NOTE | 2017-03-15 19:52 | NUR ---
DISMISS PT DISMISSED AMBULATORY TO LOBBY, NON-LABORED RESPIRATIONS. AMBULATES WITH EASE.
--- NOTE | 2017-03-16 09:13 | DI ---
EXAM: CHEST 1 VIEW 1717 hours COMPARISON: 02/11/2017. 01/09/2017. HISTORY: ITS.REASON: dyspnea . FINDINGS:There is a chest port entering through the right subclavian vein with the tip projecting over the mid SVC. The heart is enlarged. The pulmonary vascularity appears unremarkable. Linear opacities are seen at the lung bases likely representing atelectasis. There is no evidence for pleural effusion. There is no evidence for a pneumothorax. No osseous abnormalities are identified. IMPRESSION: 1. Cardiomegaly. 2. Basilar atelectatic changes. LOCATION OF DICTATION: [facility] [place] .
== END 2017-03-15 19:52 | disposition home or self-care (01) ==
LOC: ED 16:49
DX: J45.901 Unspecified asthma with (acute) exacerbation (principal)
CPT/HCPCS: 36415; 71010; 80048; 82803; 83880; 84484; 85025; 94644; 96365; 96366; 96372; 96375; 99284; J0171; J1170; J1200; J1642; J2930; J3475; J7050

== ENCOUNTER 2017-03-27 15:38 | Emergency (ER) | payer BC ==
[~2017-03-27] VITALS: Ht 177.8 cm; Wt 97.5 kg
[~2017-03-27 15:38] MED LIST changes: +ALPR0.5T8 PO; -GABA-336 PO; +GABA-338 PO; -MORP15TA71 PO
--- OUTSIDE RECORDS SUMMARY | 2017-03-27 15:43 | XMS REPORT | Continuity of Care Document ---
Author Author Abdifatah [facility] Organization [facility] Address Unknown Phone Unavailable Support Name Relationship Address Phone ABBIE RAM MD Caregiver [address] [place] [address] [place] [phone] MAHIN FERNANDEZ DO Caregiver [phone] [place] [address] PAOLA BHAKTA Next Of Kin [address] [facility], [place] [phone] Insurance Providers Payer Name Policy Number Subscriber Name Relationship [facility] [id number] Paola Bhakta 01 Spouse Advance Directives Directive [...] F (96.8 - 99.1) Temperature (Calculated Celsius) 36.13947 degrees C (36.0 - 37.3) Pulse Rate [...] Encounters Encounter Location Date/Time Departed Emergency Room [facility] 02/11/15 4:36pm Recent Diagnosis
--- OUTSIDE RECORDS SUMMARY | 2017-03-27 15:45 | XMS REPORT | Continuity of Care Document ---
Author Author [facility] Organization [facility] Address Unknown Phone Unavailable Support Name Relationship Address Phone BULMARO ZARAGOZA MD Caregiver [address] [place] [address] Unavailable REBECCAMAHIN Caregiver [address] [place] [address] Unavailable PAOLA BHAKTA Next Of Kin [address] [place] [address] Insurance Providers Guarantor Bob Bhakta Address [address] [place] [address] Email [email or web address] [facility] Policy Number [id number] Subscriber's Name Paola Bhakta Relationship 01 Spouse Group Number [id number] Chief Complaint and Reason for Visit Chief Complaint Adult-Asthma Reason for Visit ASTHMA EXACERBATION Problems Active [...] as needed for Shortness Of Air 02/02/16 Alprazolam 0.5 Mg Tablet 0.5 Mg Oral Four Times Daily as needed for Anxiety 03/15/17 Diphenhydramine Hcl 25 Mg Tablet 50 Mg Oral Four Times Daily Epinephrine (Epipen 2-Alexis) 0.3 Mg/0.3 Ml Auto.injct 0.3 Mg Injection As Needed 06/09/15 Fluticasone Propionate (Flonase Allergy Relief 50 Mcg/Actuation Nasal) 9.9 Ml [place].susp 2 [place] Nasal Daily 12/06/16 Furosemide 20 Mg Tablet 20 Mg Oral Daily 10/05/15 Gabapentin 300 Mg Capsule 300 Mg Oral Three Times A Day 03/15/17 Ipratropium/Albuterol Sulfate (Iprat-Albut 0.5-3(2.5) Mg/3 Ml) 3 Ml Ampul.neb 1 Vial Inhalation Four Times Daily 12/24/15 Loratadine (Claritin) 10 Mg Tablet 10 Mg Oral Daily 12/06/16 Mometasone/Formoterol (Dulera 200 Mcg/5 Mcg Inhaler) 13 Gm Hfa.aer.ad 2 Puff Inhalation Twice A Day 07/13/16 Pantoprazole Sodium 40 Mg Tablet.dr 40 Mg Oral Daily 09/06/16 Prednisone 20 Mg Tablet 60 Mg Oral Daily 01/19/17 Ranitidine Hcl 300 [...] Onset Date Status Hx Substance Use No 03/15/2017 5:00pm Not Applicable Not Applicable Hx Alcohol Use Y OCC 03/15/2017 5:00pm Not Applicable Not Applicable Tobacco Usage none 02/18/2015 6:26pm Not Applicable Not Applicable Query Response Start Date Stop Date Smoking Status Unknown if ever smoked Hospital Discharge Instructions No hospital discharge instructions. Plan of Care Discharge Date 03/15/17 7:52pm Disposition 01 DISCHARGED HOME, SELF-CARE Condition at Discharge Improved Instructions/Education Provided Asthma (ED) Prescriptions See Medication Section Referrals MAHIN FERNANDEZ DO Address: [place] [address] [place] [phone] Additional Instructions/Education Take your routine medications as prescribed Return immediately for any significant worsening Care Plan and Goals Physician Care Plan Problem: Asthma exacerbation Goal: Follow up with primary care provider Instructions: Take medications and follow care plan as discussed/written Take your routine medications as prescribed Return immediately for any significant worsening Functional Status No functional status results. Allergies, Adverse Reactions, Alerts Allergen Type Severity Reaction Status Last Updated Penicillin Allergy Unknown Active 03/15/17 Aspirin Allergy Unknown Active 03/15/17 BEE/WASP STINGS Allergy Unknown ANAPHYLAXIS Active 12/06/16 GUACAMOLE Allergy Severe DYSNEA Active 07/31/15 Immunizations Query Response on File Recorded Date/Time Hx Influenza Vaccination Y fall 201308/05/15 2:30pm Hx Pneumococcal Vaccination Y WITHIN LAST 5 YEARS 08/05/15 2:30pm Hx Influenza Vaccination Y fall 201308/05/15 2:30pm DTaP Vaccine History 200903/15/17 5:00pm Influenza Vaccine Hx 201503/15/17 5:00pm Tdap Vaccine Hx NO BROKEN SKIN 06/08/16 9:23pm Vital Signs Acute Vital Signs Vital Response Date/Time Temperature (Fahrenheit) 98.0 deg F (96.8 - 99.1) 03/15/2017 7:52pm Temperature (Calculated Celsius) 36.18825 degrees C (36.0 - 37.3) 03/15/2017 7:52pm Pulse Rate (adult) 119 bpm (60 - 100) 03/15/2017 7:52pm Respiratory Rate 18 breaths/min (10 - 20) 03/15/2017 7:52pm O2 Sat by Pulse Oximetry 100 % (90 - 100) 03/15/2017 7:52pm Oxygen Flow Rate 8.00 L/min 03/03/2017 12:10am Blood Pressure 122/60 mm Hg 03/15/2017 7:52pm Height (Feet) 5 feet 03/15/2017 4:51pm Height (Inches) 10.00 inches 03/15/2017 4:51pm Weight (Kilograms) 95.100 kg 03/15/2017 4:51pm Body Mass Index (BMI) 30.0 03/15/2017 4:51pm Results Laboratory Results Test Name Result Units Flags Reference Collection Date/Time Result Date/ Time Comments Adenovirus (PCR) NEGATIVE NEGATIVE 12/28/2016 8:16pm 12/28/2016 [...] (PCR) NEGATIVE NEGATIVE 12/28/2016 8:16pm 12/28 9:54pm D-Dimer < 150 NG/ML 0-230 01/25/2017 5:11pm 01/25/2017 5:48pm <230 NG/ ML D-DU=PRESUMPTIVE NEGATIVE FOR PE OR DVT >230 NG/ML D-DU=ADDITIONAL EVAL FOR PE OR DVT RECOMMENDED Total Bilirubin 0.70 MG/DL 0.20-1.30 01/25/2017 5:11pm [...] 84 U/L H 21-72 01/25/2017 5:11pm 5:29pm Plasma Lactate 1.6 MMOL/L 0.6-2.2 01/25/2017 5:10pm 01/25/2017 5:30pm Influenza Type A Antigen NEGATIVE NEGATIVE 01/25/2017 5:30pm 2016 5:53pm Negative for Flu A protein antigen. Assay sensitivity is 90%. Influenza Type B Antigen NEGATIVE NEGATIVE 01/25/2017 5:30pm 2016 5:53pm Negative for Flu B protein antigen. Assay sensitivity is 90%. White Blood Count 7.6 T/MM3 4.5-11.0 03/15/2017 5:11pm 03/15/2017 5: 23pm Red Blood Count 4.45 M/MM3 L 4.50-5.90 03/15/2017 5:03/15/2017 5: 23pm Hemoglobin 13.6 GM/DL 13.5-17.5 03/15/2017 5:03/15/2017 5:23pm Hematocrit 39.4 % L 41-53 03/15/2017 5:03/15/2017 5:23pm Mean Corpuscular Volume 88.5 UM3 80-100 03/15/2017 5:03/15/2017 5: 23pm Mean Corpuscular Hemoglobin 30.6 UUG 26-34 03/15/2017 5:2016 5:23pm Mean Corpuscular Hemoglobin Concent 34.5 GM/DL 31-37 03/15/2017 5:03/15/2017 5:23pm RDW Standard Deviation 41.7 FL 36.9-50.2 03/15/2017 5:03/15/2017 5 :23pm Platelet Count 287 T/MM3 130-400 03/15/2017 5:03/15/2017 5:23pm Mean Platelet Volume 9.7 UM3 9.4-12.4 03/15/2017 5:03/15/2017 5: 23pm Neutrophils (%) (Auto) 61.0 % 33-66 03/15/2017 5:03/15/2017 5: 23pm Lymphocytes (%) (Auto) 23.2 % 23-45 03/15/2017 5:03/15/2017 5: 23pm Monocytes (%) (Auto) 4.5 % 0-9.0 03/15/2017 5:03/15/2017 5:23pm Eosinophils (%) (Auto) 10.5 % H 0-4 03/15/2017 5:03/15/2017 5:23pm Basophils (%) (Auto) 0.5 % 0-2 03/15/2017 5:03/15/2017 5:23pm Immature Granulocyte % (Auto) 0.3 % 0.0-0.5 03/15/2017 5:2016 5:23pm Absolute Neutrophils (auto) 4.6 T/MM3 1.8-7.7 03/15/2017 5:2016 5:23pm Absolute Lymphocytes (auto) 1.8 T/MM3 1-4.8 03/15/2017 5:2016 5:23pm Absolute Monocytes (auto) 0.3 T/MM3 0-0.8 03/15/2017 5:03/15/2017 5:23pm Absolute Eosinophils (auto) 0.8 T/MM3 H 0-0.5 03/15/2017 5:2016 5:23pm Absolute Basophils (auto) 0.0 T/MM3 0-0.2 03/15/2017 5:03/15/2017 5:23pm Absolute Immature Granulocyte (auto 0.02 T/MM3 0.00-0.03 03/15/2017 5: 03/15/2017 5:23pm Icterus Index < 2 0-7 03/15/2017 5:03/15/2017 5:43pm Chemistry Specimen Hemolysis < 15 0-25 03/15/2017 5:03/15/2017 5 :43pm 0-25: Specimen Exhibited No Hemolysis. Turbidity < 20 0-20 03/15/2017 5:03/15/2017 5:43pm Sodium Level 144 MEQ/L 134-144 03/15/2017 5:03/15/2017 5:31pm Potassium Level 3.6 MEQ/L 3.6-5 03/15/2017 5:03/15/2017 5:31pm Chloride Level 105 MEQ/L 98-107 03/15/2017 5:03/15/2017 5:31pm Carbon Dioxide Level 25 MEQ/L 22-30 03/15/2017 5:03/15/2017 5: 31pm Anion Gap 14 MEQ/L 5-15 03/15/2017 5:03/15/2017 5:31pm Blood Urea Nitrogen 28.0 MG/DL H 9-20 03/15/2017 5:03/15/2017 5: 31pm Creatinine 0.9 MG/DL 0.8-1.5 03/15/2017 5:03/15/2017 5:31pm BUN/Creatinine Ratio 31 RATIO H 6-26 03/15/2017 5:03/15/2017 5: 31pm Glomerular Filtration Rate Calc 89 03/15/2017 5:03/15/2017 5: 31pm Glucose Level 144 MG/DL H 75-110 03/15/2017 5:03/15/2017 5:31pm Calculated Osmolality 286 MOSM/KG H 261-280 03/15/2017 5:2016 5:31pm Calcium Level 8.8 MG/DL 8.4-10.2 03/15/2017 5:03/15/2017 5:31pm Troponin I < 0.012 ng/ml 0-0.12 03/15/2017 5:03/15/2017 5:43pm Troponin values with a difference of 55% increase from orginal troponin value represent a true biological DELTA value. (%increase Calc=Orginal Troponin value, divided by subsequent Troponin value, multiplied by 100) GY-Hth-H-Type Natriuretic Peptide 29 PG/ML 0-175 03/15/2017 5:11pm 08/2017 5:39pm Rule in cut points: <50 years old=450; 50-75 years old=900; >75 years old=1800; When utilizing ProBNP rule-in cut points, adjustment for impaired renal function is typically not required. Arterial Blood pH 7.370 7.350-7.450 03/15/2017 5:18pm 03/15/2017 5: 27pm Arterial Blood Partial Pressure CO2 52 MMHG H 34-45 03/15/2017 5:18pm 5:27pm Arterial Blood pO2 at Patient Temp 39 MMHG *L 80-100 03/15/2017 5:18pm 5:27pm Arterial Blood HCO3 30 MEQ/L H 22-26 03/15/2017 5:18pm 03/15/2017 5: 27pm Arterial Blood Total CO2 31.7 MEQ/L H 23-27 03/15/2017 5:18pm 2016 5:27pm Arterial Blood Base Excess 3.7 MMOL/L H -2.0-2.0 03/15/2017 5:18pm 03/15 5:27pm Arterial Blood Oxygen Saturation 72.0 % L 95.0-98.0 03/15/2017 5:18pm 5:27pm Blood Gas Oxygen Percent Given 20 03/15/2017 5:18pm 03/15/2017 5: 27pm Blood Gas Oxygen Liter Flow 11 03/15/2017 5:18pm 03/15/2017 5:27pm Oxygen Delivery Method (LAB) NRB MASK, LITERS 03/15/2017 5:18pm 08/2017 5:27pm Microbiology Results Procedure Source Organism/Result Collection Date/Time Result Date/Time Result Status Blood Culture Peripheral/Iv Start NO GROWTH AFTER 5 DAYS 01/25/2017 5:48pm 01/30/2017 5:51pm Final Procedures Procedure Status Date Provider(s) Airway inhalation treatment Completed 12/21/16 Airway inhalation [...] addon Completed 12/21/16 Tx/pro/dx inj same drug solutions architect consultant Completed 12/21/16 Tx/pro/dx inj same drug solutions architect consultant Completed 12/21/16 Emergency dept visit Completed 12/21/16 EPINEPHRINE MDV 1MG/ML 30ML Completed 12/21/16024384"INJECTION, HYDROMORPHONE, UP TO 4 MG" Completed 12/21/16584516"INJECTION, DIPHENHYDRAMINE HCL, UP TO 50 MG" Completed 12/21/16"INJECTION, DIPHENHYDRAMINE HCL, UP TO 50 MG" Completed 12/21/16384842"INJECTION, HEPARIN SODIUM, (HEPARIN LOCK FLUSH), PER Completed 003"INJECTION, LORAZEPAM, 2 MG" Completed 12/21/16"INJECTION, LORAZEPAM, 2 MG" Completed 12/21/16574354"INJECTION, METHYLPREDNISOLONE SODIUM SUCCINATE, UP TO Completed 003"INJECTION, [...] addon Completed 12/23/16 Tx/pro/dx inj same drug solutions architect consultant Completed 12/23/16 Tx/pro/dx inj same drug solutions architect consultant Completed 12/23/16 Tx/pro/dx inj same drug solutions architect consultant Completed 12/23/16 Emergency dept visit Completed 12/23/16 EPINEPHRINE MDV 1MG/ML 30ML Completed 12/23/16106486"INJECTION, HYDROMORPHONE, UP TO 4 MG" Completed 12/23/16"INJECTION, [...] addon Completed 12/28/16 Tx/pro/dx inj same drug solutions architect consultant Completed 12/28/16 Emergency dept visit Completed 12/28/16 [...] addon Completed 01/09/17 Tx/pro/dx inj same drug solutions architect consultant Completed 01/09/17 Tx/pro/dx inj same drug solutions architect consultant Completed 01/09/17 Tx/pro/dx inj same drug solutions architect consultant Completed 01/09/17 Tx/pro/dx inj same drug solutions architect consultant Completed 01/09/17 Emergency dept visit Completed 01/09/17 EPINEPHRINE MDV 1MG/ML 30ML Completed 01/09/17 EPINEPHRINE MDV 1MG/ML 30ML Completed 01/09/17723227"INJECTION, HYDROMORPHONE, UP TO 4 MG" Completed 01/09/17"INJECTION, [...] "INJECTION, MAGNESIUM SULFATE, PER 500 MG" Completed 01/09/17867390"INFUSION, NORMAL SALINE SOLUTION , 1000 CC" Completed 01/09/17"INFUSION, NORMAL SALINE SOLUTION , 250 CC" Completed 01/09/17 040258"ADMINISTERED THROUGH DME, CONCENTRATED FORM, 1 MG" Completed 01/09/17 652923"ADMINISTERED THROUGH DME, CONCENTRATED FORM, 1 MG" Completed 01/09/17 Cbt 1st hour Completed 01/19/17 Cbt each addl hour Completed 01/19/17 Ther/proph/diag iv inf init Completed 01/19/17 Ther/proph/diag inj sc/im Completed 01/19/17 Tx/pro/dx inj new drug addon Completed 01/19/17 Tx/pro/dx inj new drug addon Completed 01/19/17 Tx/pro/dx inj new drug addon Completed 01/19/17 Tx/pro/dx inj new drug addon Completed 01/19/17 Tx/pro/dx inj same drug solutions architect consultant Completed 01/19/17 Emergency dept visit Completed 01/19/17 [...] addon Completed 02/11/17 Tx/pro/dx inj same drug solutions architect consultant Completed 02/11/17 Emergency dept visit Completed 02/11/17 EPINEPHRINE MDV 1MG/ML 30ML Completed 02/11/17 792700"INJECTION, HYDROMORPHONE, UP TO 4 MG" Completed 02/11/17959838"INJECTION, DIPHENHYDRAMINE HCL, UP TO 50 MG" Completed 02/11/17203099"INJECTION, DIPHENHYDRAMINE HCL, UP TO 50 MG" Completed 02/11/17289103"INJECTION, HEPARIN SODIUM, (HEPARIN LOCK FLUSH), PER Completed 003"INJECTION, LORAZEPAM, 2 MG" Completed 02/11/17840715"INJECTION, METHYLPREDNISOLONE SODIUM SUCCINATE, UP TO Completed 003"INJECTION, MAGNESIUM SULFATE, PER 500 MG" Completed 02/11/17380137"INJECTION, MAGNESIUM SULFATE, PER 500 MG" Completed 02/11/17276492"INFUSION, NORMAL SALINE SOLUTION , 1000 CC" Completed 02/11/17 036887"ADMINISTERED THROUGH DME, CONCENTRATED FORM, 1 MG" Completed 02/11/17 Place needle in vein Completed 03/02/17 Cbt 1st hour Completed 03/02/17 Ther/proph/diag iv inf init Completed 03/02/17 Ther/proph/diag iv inf addon Completed 03/02/17 Ther/proph/diag inj sc/im Completed 03/02/17 Tx/pro/dx inj new drug addon Completed 03/02/17 Tx/pro/dx inj new drug addon Completed 03/02/17 Tx/pro/dx inj new drug addon Completed 03/02/17 Tx/pro/dx inj same drug solutions architect consultant Completed 03/02/17 Emergency dept visit Completed 03/02/17 EPINEPHRINE MDV 1MG/ML 30ML Completed 03/02/17839238"INJECTION, HYDROMORPHONE, UP TO 4 MG" Completed 03/02/17543916"INJECTION, HYDROMORPHONE, UP TO 4 MG" Completed 03/02/17637696"INJECTION, DIPHENHYDRAMINE HCL, UP TO 50 MG" Completed 03/02/17"INJECTION, HEPARIN SODIUM, (HEPARIN LOCK FLUSH), PER Completed 003"INJECTION, METHYLPREDNISOLONE SODIUM SUCCINATE, UP TO Completed "INJECTION, MAGNESIUM SULFATE, PER 500 MG" Completed 03/02/17"INFUSION, NORMAL SALINE SOLUTION , 250 CC" Completed 03/02/17968098"ADMINISTERED THROUGH DME, CONCENTRATED FORM, 1 MG" Completed 03/02/17052804"ADMINISTERED THROUGH DME, CONCENTRATED FORM, 1 MG" Completed 03/02/17 Encounters Encounter Location Arrival/Admit Date Discharge/Depart Date Attending Provider Departed Emergency Room [facility] 03/15/17 4:49pm 03/15/17 7: 52pm BULMARO ZARAGOZA MD Departed Emergency Room [facility] 03/02/17 9:19pm 03/03/17 12: 10am JORGE LUIS NUNO DO Departed Emergency Room [facility] 02/11/17 10:21pm 02/12/17 12: 35am MARCHVANIA DO Departed Emergency Room [facility] 01/25/17 4:25pm 01/25/17 7: 00pm JENNIFER ZELAYA MD Departed Emergency Room [facility] 01/19/17 4:26pm 01/19/17 7: 10pm BIANCA CROSS MD Departed Emergency Room [facility] 01/09/17 7:00pm 01/09/17 10: 25pm BIANCA CROSS MD Departed Emergency Room [facility] 12/28/16 7:16pm 12/28/16 10: 38pm MARCHVANIA DO Departed Emergency Room [facility] 12/23/16 8:51pm 12/24/16 12: 33am BULMARO ZARAGOZA MD Departed Emergency Room [facility] 12/21/16 3:54am 12/21/16 7: 30am BULMARO ZARAGOZA MD Recent Diagnosis
[2017-03-27] MEDS ORDERED: MAGNESIUM SULF 1gm / D5W 100ml 100 ML IV SCH (15:47)
[2017-03-27] MEDS ORDERED: NORMAL SALINE 1,000 ML IV ONE (15:47)
--- OUTSIDE RECORDS SUMMARY | 2017-03-27 15:58 | XMS REPORT | Continuity of Care Document ---
Author Author [facility] Organization [facility] Address Unknown Phone Unavailable Support Name Relationship Address Phone ABBIE RAM MD Caregiver [address] [place] [address] [place] [phone] MAHIN FERNANDEZ DO Caregiver [address] [place] [address] PAOLA BHAKTA Next Of Kin [address] [facility], [place] [id number] Insurance Providers Payer Name Policy Number Subscriber Name Relationship [facility] [id number] Paola Bhakta 01 Spouse Advance Directives Directive [...] F (96.8 - 99.1) Temperature (Calculated Celsius) 36.92906 degrees C (36.0 - 37.3) Pulse Rate [...] Encounters Encounter Location Date/Time Departed Emergency Room [facility] 02/11/15 4:36pm Recent Diagnosis
[2017-03-27] MEDS ORDERED: MAGNESIUM SULFATE IV ONE (16:00)
[2017-03-27] MEDS ORDERED: ALBUTEROL/IPRATROPIUM INHAL. 2.5mg-0.5mg/3ml Neb. AEROSOL ONE (16:00)
[2017-03-27] MEDS ORDERED: NORMAL SALINE IV ONE (16:00)
[2017-03-27] MEDS ORDERED: EPINEPHRINE 1mg/ml INJECTION AMP IM ONE (16:00)
[2017-03-27 16:05] VITALS: Ht 177.8 cm; Wt 97.5 kg
--- NOTE | 2017-03-27 16:24 | DI ---
Indication: ITS.REASON: dyspnea CHEST 1 VIEW: Comparison: 03/15/2017 Technique: Single portable upright chest Findings: Patient showed stable heart, mediastinum and central vascularity. Patient still shows the right-sided port in place. Lungs are clear. No acute new bony findings are seen. Impression: Stable examination of the chest with no acute findings identified. .
[2017-03-27] MEDS ORDERED: DiphenhydrAMINE 50 MG/ML INJECTION IV ONE ×2 (16:30→16:45)
--- NOTE | 2017-03-27 16:40 | NUR ---
PT REQUEST ADDITIONAL MEDS PT REQUESTS ATIVAN AND ADDITIONAL BENADRYL. DR. ZELAYA ADVISED AND ORDERS.
[2017-03-27] MEDS ORDERED: LORAZEPAM 2 MG/ML INJECTION IV ONE (16:45)
--- NOTE | 2017-03-27 16:51 | NUR ---
PT STATUS PT STATES HE IS FEELING MUCH BETTER AND FEELS LIKE SOON HIS IS HERE HE WILL BE READY TO DEPART. NS IS STILL RUNNING AND WILL INFUSE UNTIL COMPLETED OR ARRIVES. PT REQUESTS HIS DEPART PAPERWORK BE STARTED SO HE CAN LEAVE SOON HIS ARRIVES AND SAYS SHE IS ON HER WAY. DR. ZELAYA IS ADVISED AND AGREES. PT DOES NOT APPEAR TO BE IN ANY RESP. DISTRESS AT THIS TIME.
--- NOTE | 2017-03-27 16:55 | NUR ---
LABS CANCELLED DR. ZELAYA ADVISED LAB STAFF TO CANCEL ALL LAB ORDERS AT THIS TIME.
--- NOTE | 2017-03-27 16:57 | ERPDOC ---
Departure Disposition Decision Date: March 27, 2017 Disposition Decision Time: 17:01 Disposition: 01 DISCHARGED HOME, SELF-CARE Impression Impression Impression: Primary Impression: Anxiety state Additional Impression: Acute asthma exacerbation Severity: Moderate Condition: Improved Seen By: Physician only Referrals: MAHIN FERNANDEZ DO (Family) Patient Instructions: Asthma (ED) Medications reviewed and manag: Yes Additional Instructions: Follow-up with your primary care provider as needed. Follow up care ordered?: Yes Mental Status: Alert, Oriented HPI - Respiratory General General Chief Complaint: Dyspnea/Respdistress Stated Complaint: DIFFICULTY BREATHING Time Seen by Provider: 15:45 HPI - Respiratory General Initial Comments 81-year-old male presents with respiratory distress. Patient has a long- standing history of asthma attack and acute respiratory distress. 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 3 breathing treatments at home and came to the emergency department. He does have a guideline on treatment which is been posted and he requested that we follow that treatment. Allergies: Coded Allergies: Penicillins (Verified Allergy, Unknown, 03/27/17) aspirin (Verified Allergy, Unknown, 03/27/17) Uncoded Allergies: GUACAMOLE (Allergy, Severe, DYSNEA, 07/31/15) BEE/WASP STINGS (Allergy, Unknown, ANAPHYLAXIS, 12/06/16) Past History Patient Surgical History Port-Placement. Past Medical History Respiratory: asthma Musculoskeletal: back pain Psychological: anxiety Surgical History Denies Surgeries General: other Family History Family PMH: FOUND: other Vaccines Hx Influenza Vaccination: Yes (fall 2013) Hx Pneumococcal Vaccination: Yes (WITHIN LAST 5 YEARS) Social History Does patient use chewing tobac: No Second Hand Exposure: No Substance Use Type: does not use Alcohol Intake: none Marital Status: Sexuality: female partner Housing: house Household Members: spouse Service: No Current Occupational Status: employed Occupational Hazard: No Advance Directives: Yes Full Code Record Review Pertinent history updated: Yes Review of Systems Unable to Obtain ROS Due to: clinical condition Physical Exam General General Nourishment: well nourished, well developed, appears stated age Distress Description Patient has very forced expiratory breathing. Vitals and Pain First Documented Vital Signs Date Time Temp Pulse Resp B/P Pulse Ox O2 Delivery O2 Flow Rate FiO2 03/27/17 15:40 97.0 99 24 174/109 100 Room Air 4.00 Weight: Kilograms: 97.500 Height (feet): 5 Height (inches): 10.00 Triage Pain Scale: Normal Exams: Head: Normocephalic w/o trauma Abdomen: Bowel sounds positive, soft, non-tender, non-distended, no hepatosplenomegaly, masses or bruits noted Neurologic: Patient is alert, and oriented, cranial nerves, motor/sensory/ cerebellar, exams w/o gross deficits, to observation Respiratory (brief) Comments No wheezing or crackles on inspiration, patient has very forced expiration when not talking. When he does talk he has normal sounding expiration. Cardiovascular (brief) Comments Patient is tachycardic, blood pressures elevated. Differential Diagnoses Differential Diagnoses Considering: Acute Respiratory Failure, Allergic Reaction, Asthma Exacerbation , COPD Exacerbation, Foreign Body, Toxic Inhalation, Pneumothorax, Pulmonary Edema, Viral Syndrome Progress Results/Orders Orders Procedure Category Date Status Time Cmp - Comprehensive LAB 03/27/17 Logged Metabolic 15:47 Probnp LAB 03/27/17 Logged 15:47 Cbc W/Auto LAB 03/27/17 Logged Diff-Reflex Manual 15:47 D-Dimer LAB 03/27/17 Logged 15:47 Troponin I W LAB 03/27/17 Logged Hemolysis Index 15:47 Chest 1 View RAD 03/27/17 Resulted 15:47 Iv Lock (Ed Only) EDM 03/27/17 Transmitted 15:47 Normal Saline (Normal PHA 03/27/17 Complete Saline Iv) 15:47 Albuterol/Ipratropium PHA 03/27/17 Complete (Duoneb) 16:00 Magnesium Sulf 1gm / PHA 03/27/17 Complete D5w 100ml (Magnesiu 15:47 Oxygen Administration EDM 03/27/17 Transmitted 15:47 Magnesium LAB 03/27/17 Logged 15:47 Heliox Therapy RT 03/27/17 Transmitted 15:47 Epinephrine PHA 03/27/17 Complete (Adrenalin) 16:00 Magnesium Sulfate PHA 03/27/17 In Process (Magnesium Sulfate) 16:00 Diphenhydramine PHA 03/27/17 Complete (Benadryl) 16:30 Diphenhydramine PHA 03/27/17 Complete (Benadryl) 16:45 Lorazepam (Ativan) PHA 03/27/17 Complete 16:45 Medications Current ED Medications Sodium Chloride (Normal Saline IV) 1,000 ml @ 1,000 mls/hr Q1H ONCE IV Last administered on 03/27/17 16:25; Start 03/27/17 at 15:47; Stop 03/27/17 at 16:46 ; Status DC Albuterol/ Ipratropium 3 ml 3 ml O ONCE AEROSOL ; Start 03/27/17 at 16:00; Stop 03/27/17 at 16:01; Status DC Magnesium Sulfate/ Dextrose (Magnesium Sulfate Ivpb) 100 ml @ 600 mls/hr Q10M IV Last administered on 03/27/17 15:57; Start 03/27/17 at 15:47; Stop at 16:06; Status DC Epinephrine HCl 0.5 mg 0.5 mg O ONCE IM Last administered on 03/27/17 15:49; Start 03/27/17 at 16:00; Stop 03/27/17 at 16:01; Status DC Magnesium Sulfate/ Sodium Chloride (Magnesium Sulfate/NS) 104 ml @ 25 mls/hr O ONCE IV Last administered on 03/27/17 15:55; Start 03/27/17 at 16:00; Stop 03/27/17 at 20:09 Diphenhydramine HCl (Benadryl) 50 mg O ONCE IV Last administered on 03/27/17 15:49; Start 03/27/17 at 16:30; Stop 03/27/17 at 16:31; Status DC Diphenhydramine HCl (Benadryl) 50 mg O ONCE IV Last administered on 03/27/17 16:48; Start 03/27/17 at 16:45; Stop 03/27/17 at 16:46; Status DC Lorazepam (Ativan) 0.25 mg O ONCE IV Last administered on 03/27/17 16:46; Start 03/27/17 at 16:45; Stop 03/27/17 at 16:46; Status DC Progress Progress Patient was saturating at 100% on 2 L nasal cannula. He felt like he did not have enough air and the protocol was started. He was given 4 duo nebs by heliox , 0.5 mg of epinephrine intramuscular. 2 g magnesium sulfate dose over 20 minutes. Benadryl 50 mg IV and Solu-Medrol 125 mg IV. On arrival he immediately asked for some pain medication, we did declined to do that and he has done well. He did ask for Ativan, was given 0.25 mg IV and asked for a second dose of Benadryl, was given another 50 mg Benadryl dose IV at this time he is relaxed and resting, waiting for his to come pick him up. His O2 sats never were noted to drop below 100% on heliox or supplemental oxygen. JENNIFER ZELAYA MD March 27, 2017 16:57
[2017-03-27 17:31] VITALS: PULSE 89; RESP 24
[2017-03-27 18:25] VITALS: BP 125/70; PULSE 79; RESP 19; TEMP 97; O2SAT 95
[2017-03-28] MEDS ORDERED: EPIN0.3P3 IM (05:12)
== END 2017-03-27 18:25 | disposition home or self-care (01) ==
LOC: ED 15:38
DX: J45.901 Unspecified asthma with (acute) exacerbation (principal); F41.1 Generalized anxiety disorder
CPT/HCPCS: 71010; 94644; 96361; 96365; 96372; 96375; 96376; 99284; J0171; J1200; J1642; J2060; J2930; J3475; J7030; J7050

== ENCOUNTER 2017-03-28 02:27 | Emergency (ER) | payer BC ==
[~2017-03-28] VITALS: Ht 177.8 cm; Wt 97.5 kg
[2017-03-28 02:29] VITALS: Ht 177.8 cm; Wt 97.5 kg
--- OUTSIDE RECORDS SUMMARY | 2017-03-28 02:33 | XMS REPORT | Continuity of Care Document ---
Author Author [facility] Organization [facility] Address Unknown Phone Unavailable Support Name Relationship Address Phone MAHIN FERNANDEZ DO Caregiver [address] [place] [address] Unavailable JENNIFER ZELAYA MD Caregiver [address] [place] [id number] Unavailable PAOLA BHAKTA Next Of Kin [address] [place] [address] Insurance Providers Guarantor Bob Bhakta Address [address] [place] [address] Email [email or web address] Payer [facility] Policy Number [id number] Subscriber's Name Paola Bhakta Relationship 01 Spouse Group Number [id number] Advance Directives Directive Response Recorded Date/Time Advanced Directives Type None 03/27/17 3:40pm Chief Complaint and Reason for Visit Chief Complaint Dyspnea/Respdistress Reason for Visit Acute asthma exacerbation [id number] state Problems Active Problems Medical Problem Onset Date Status Allergic to IV contrast Unknown Acute Anxiety state Unknown Acute Low back pain Unknown Acute Sinusitis Unknown Acute Spondylolisthesis at L4-L5 level Unknown Acute Viral syndrome Unknown Acute Past Problems Medical Problem Onset Date ASTHMA EXACERBATION Unknown ASTHMA EXACERBATION Unknown Acute asthma exacerbation Unknown Anxiety Unknown Anxiety Unknown Asthma exacerbation [...] Allergy Relief 50 Mcg/Actuation Nasal) 9.9 Ml [place].susp 2 [place] Nasal Daily 12/06/16 Furosemide 20 Mg Tablet [...] Problem Response Recorded Date/Time Onset Date Status Chewing Tobacco Status No 03/27/2017 4:20pm Not Applicable Not Applicable Hx Substance Use No 03/27/2017 4:20pm Not Applicable Not Applicable Hx Alcohol Use Y OCC 03/27/2017 4:20pm Not Applicable Not Applicable Tobacco Usage none 02/18/2015 6:26pm Not Applicable Not Applicable Query Response Start Date Stop Date Smoking Status Never smoker Hospital Discharge Instructions No hospital discharge instructions. Plan of Care Discharge Date 03/27/17 6:25pm Disposition 01 DISCHARGED HOME, SELF-CARE Condition at Discharge Improved Instructions/Education Provided Asthma (ED) Prescriptions See Medication Section Referrals MAHIN FERNANDEZ DO Address: [facility] [address] [place] [address] Additional Instructions/Education Follow-up with your primary care provider as needed. Functional Status No functional status results. Allergies, Adverse Reactions, Alerts Allergen Type Severity Reaction Status Last Updated Penicillin Allergy Unknown Active 03/27/17 Aspirin Allergy Unknown Active 03/27/17 BEE/WASP STINGS Allergy Unknown ANAPHYLAXIS Active 12/06/16 GUACAMOLE Allergy Severe DYSNEA Active 07/31/15 Immunizations Query Response on File Recorded Date/Time Hx Influenza Vaccination Y fall 201308/05/15 2:30pm Hx Pneumococcal Vaccination Y WITHIN LAST 5 YEARS 08/05/15 2:30pm Hx Influenza Vaccination Y fall 201308/05/15 2:30pm DTaP Vaccine History 200903/27/17 4:20pm Influenza Vaccine Hx 201503/27/17 4:20pm Tdap Vaccine Hx NO BROKEN SKIN 06/08/16 9:23pm Vital Signs Acute Vital Signs Vital Response Date/Time Temperature (Fahrenheit) 97.0 deg F (96.8 - 99.1) 03/27/2017 6:25pm Temperature (Calculated Celsius) 36.69050 degrees C (36.0 - 37.3) 03/27/2017 6:25pm Pulse Rate (adult) 79 bpm (60 - 100) 03/27/2017 6:25pm Respiratory Rate 19 breaths/min (10 - 20) 03/27/2017 6:25pm O2 Sat by Pulse Oximetry 95 % (90 - 100) 03/27/2017 6:25pm Oxygen Flow Rate 8.00 L/min 03/27/2017 5:31pm Blood Pressure 125/70 mm Hg 03/27/2017 6:25pm Height (Feet) 5 feet 03/27/2017 4:05pm Height (Inches) 10.00 inches 03/27/2017 4:05pm Weight (Kilograms) 97.500 kg 03/27/2017 4:05pm Body Mass Index (BMI) 30.0 03/27/2017 4:05pm Results Laboratory Results Test Name Result Units [...] Blood Count 4.45 M/MM3 L 4.50-5.90 03/15/2017 5:1103/15/2017 5: 23pm Hemoglobin 13.6 GM/DL 13.5-17.5 03/15/2017 [...] by subsequent Troponin value, multiplied by 100) SF-Nfn-S-Type Natriuretic Peptide 29 PG/ML 0-175 03/15/2017 5:11pm [...] 5 DAYS 01/25/2017 5:48pm 01/30/2017 5:51pm Final Name: BOB BHAKTA Unit #: [id number] : 1965 Sex: M Admit Date: Loc / Svc: ED Discharge Date: DIAGNOSTIC IMAGING REPORT Report #: [id number] [facility] SCAR [place] Indication: ITS.REASON: dyspnea CHEST 1 VIEW: Comparison: 03/15/2017 Technique: Single portable upright chest Findings: Patient showed stable heart, mediastinum and central vascularity. Patient still shows the right-sided port in place. Lungs are clear. No acute new bony findings are seen. Impression: Stable examination of the chest with no acute findings identified. . 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 Completed 01/09/17 Emergency dept visit Completed 01/09/17 [...] NORMAL SALINE SOLUTION , 250 CC" Completed 01/09/17403934"ADMINISTERED THROUGH DME, CONCENTRATED FORM, 1 MG" Completed 01/09/17349630"ADMINISTERED THROUGH DME, CONCENTRATED FORM, 1 MG" Completed 01/09/17 Cbt 1st hour Completed 01/19/17 Cbt each addl hour Completed 01/19/17 Ther/proph/diag iv inf init Completed 01/19/17 Ther/proph/diag inj sc/im Completed 01/19/17 Tx/pro/dx inj new drug addon Completed 01/19/17 Tx/pro/dx inj new drug addon Completed 01/19/17 Tx/pro/dx inj new drug addon Completed 01/19/17 Tx/pro/dx inj new drug addon Completed 01/19/17 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 Completed 01/19/17 Emergency dept visit Completed 01/19/17 EPINEPHRINE MDV 1MG/ML 30ML Completed 01/19/17"INJECTION, HYDROMORPHONE, UP TO 4 MG" Completed 01/19/17"INJECTION, HYDROMORPHONE, UP TO 4 MG" Completed 01/19/17"INJECTION, DIPHENHYDRAMINE HCL, UP TO 50 MG" Completed 01/19/17617422"INJECTION, DIPHENHYDRAMINE HCL, UP TO 50 MG" Completed 01/19/17344088"INJECTION, LORAZEPAM, 2 MG" Completed 01/19/17263716"INJECTION, METHYLPREDNISOLONE SODIUM SUCCINATE, UP TO Completed 003"INJECTION, MAGNESIUM SULFATE, PER 500 MG" Completed 01/19/17378789"ADMINISTERED THROUGH DME, CONCENTRATED FORM, 1 MG" Completed [...] Completed 01/25/17 EPINEPHRINE MDV 1MG/ML 30ML Completed 01/25/17322220"INJECTION, DIPHENHYDRAMINE HCL, UP TO 50 MG" Completed 01/25/17864496"INJECTION, HEPARIN SODIUM, (HEPARIN LOCK FLUSH), PER Completed 003"INJECTION, METHYLPREDNISOLONE SODIUM SUCCINATE, UP TO Completed 003"INJECTION, MAGNESIUM SULFATE, PER 500 MG" Completed 01/25/17499775"INJECTION, MAGNESIUM SULFATE, PER 500 MG" Completed 01/25/17 [...] addon Completed 02/11/17 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 Completed 02/11/17 Emergency dept visit Completed 02/11/17 EPINEPHRINE MDV 1MG/ML 30ML Completed 02/11/17342954"INJECTION, HYDROMORPHONE, UP TO 4 MG" Completed 02/11/17"INJECTION, DIPHENHYDRAMINE HCL, UP TO 50 MG" Completed 02/11/17"INJECTION, DIPHENHYDRAMINE HCL, UP TO 50 MG" Completed 02/11/17"INJECTION, HEPARIN SODIUM, (HEPARIN LOCK FLUSH), PER Completed "INJECTION, LORAZEPAM, 2 MG" Completed 02/11/17"INJECTION, METHYLPREDNISOLONE SODIUM SUCCINATE, UP TO Completed "INJECTION, MAGNESIUM SULFATE, PER 500 MG" Completed 02/11/17"INJECTION, MAGNESIUM SULFATE, PER 500 MG" Completed 02/11/17"INFUSION, NORMAL SALINE SOLUTION , 1000 CC" Completed 02/11/17478031"ADMINISTERED THROUGH DME, CONCENTRATED FORM, 1 MG" Completed 02/11/17 Place needle in vein Completed 03/02/17 Cbt 1st hour Completed 03/02/17 Ther/proph/diag iv inf init Completed 03/02/17 Ther/proph/diag iv inf addon Completed 03/02/17 Ther/proph/diag inj sc/im Completed 03/02/17 Tx/pro/dx inj new drug addon Completed 03/02/17 Tx/pro/dx inj new drug addon Completed 03/02/17 Tx/pro/dx inj new drug addon Completed 03/02/17 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 Completed 03/02/17 Emergency dept visit Completed 03/02/17 EPINEPHRINE MDV 1MG/ML 30ML Completed 03/02/17416312"INJECTION, HYDROMORPHONE, UP TO 4 MG" Completed 03/02/17089487"INJECTION, HYDROMORPHONE, UP TO 4 MG" Completed 03/02/17"INJECTION, DIPHENHYDRAMINE HCL, UP TO 50 MG" Completed 03/02/17"INJECTION, HEPARIN SODIUM, (HEPARIN LOCK FLUSH), PER Completed "INJECTION, METHYLPREDNISOLONE SODIUM SUCCINATE, UP TO Completed "INJECTION, MAGNESIUM SULFATE, PER 500 MG" Completed 03/02/17"INFUSION, NORMAL SALINE SOLUTION , 250 CC" Completed 03/02/17526635"ADMINISTERED THROUGH DME, CONCENTRATED FORM, 1 MG" Completed 03/02/17819816"ADMINISTERED THROUGH DME, CONCENTRATED FORM, 1 MG" Completed 03/02/17 Routine venipuncture Completed 03/15/17 Chest x-ray 1 view frontal Completed 03/15/17 Metabolic panel total ca Completed 03/15/17 Blood gases any combination Completed 03/15/17 Assay of natriuretic peptide Completed 03/15/17 Assay of troponin quant Completed 03/15/17 Complete cbc w/auto diff wbc Completed 03/15/17 Cbt 1st hour Completed 03/15/17 Ther/proph/diag iv inf init Completed 03/15/17 Ther/proph/diag iv inf addon Completed 03/15/17 Ther/proph/diag inj sc/im Completed 03/15/17 Ther/proph/diag inj sc/im Completed 03/15/17 Tx/pro/dx inj new drug addon Completed 03/15/17 Tx/pro/dx inj new drug addon Completed 03/15/17 Tx/pro/dx inj new drug addon Completed 03/15/17 Tx/pro/dx inj new drug addon Completed 03/15/17 Emergency dept visit Completed 03/15/17 EPINEPHRINE MDV 1MG/ML 30ML Completed 03/15/17 EPINEPHRINE MDV 1MG/ML 30ML Completed 03/15/17"INJECTION, HYDROMORPHONE, UP TO 4 MG" Completed 03/15/17"INJECTION, DIPHENHYDRAMINE HCL, UP TO 50 MG" Completed 03/15/17"INJECTION, DIPHENHYDRAMINE HCL, UP TO 50 MG" Completed 03/15/17"INJECTION, HEPARIN SODIUM, (HEPARIN LOCK FLUSH), PER Completed "INJECTION, METHYLPREDNISOLONE SODIUM SUCCINATE, UP TO Completed "INJECTION, MAGNESIUM SULFATE, PER 500 MG" Completed 03/15/17 608971"INFUSION, NORMAL SALINE SOLUTION , 250 CC" Completed 03/15/17 Encounters Encounter Location Arrival/Admit Date Discharge/Depart Date Attending Provider Departed Emergency Room [facility] 03/27/17 3:38pm 03/27/17 6: 25pm JENNIFER ZELAYA MD Departed Emergency Room [facility] 03/15/17 4:49pm 03/15/17 7: 52pm BULMARO ZARAGOZA MD Departed Emergency Room [facility] 03/02/17 9:19pm 03/03/17 12: 10am JORGE LUIS NUNO DO Departed Emergency Room [facility] 02/11/17 10:21pm 02/12/17 12: 35am VANIA ALEJANDRO DO Departed Emergency Room [facility] 01/25/17 4:25pm 01/25/17 7: 00pm JENNIFER ZELAYA MD Departed Emergency Room [facility] 01/19/17 4:26pm 01/19/17 7: 10pm BIANCA CROSS MD Departed Emergency Room [facility] 01/09/17 7:00pm 01/09/17 10: 25pm BIANCA CROSS MD Departed Emergency Room [facility] 12/28/16 7:16pm 12/28/16 10: 38pm VANIA ALEJANDRO DO Recent Diagnosis
--- OUTSIDE RECORDS SUMMARY | 2017-03-28 02:33 | XMS REPORT | Continuity of Care Document ---
Author Author [facility] Organization [facility] Address Unknown Phone Unavailable Support Name Relationship Address Phone ABBIE RAM MD Caregiver [address] [place] [address] [place] [phone] MAHIN FERNANDEZ DO Caregiver [address] [place] [address] PAOLA BHAKTA Next Of Kin [address] [facility], [place] [id number] Insurance Providers Payer Name Policy Number Subscriber Name Relationship [facility] [id number] Paola Bhakta 01 Spouse Advance Directives Directive [...] F (96.8 - 99.1) Temperature (Calculated Celsius) 36.02725 degrees C (36.0 - 37.3) Pulse Rate [...] Encounters Encounter Location Date/Time Departed Emergency Room [facility] 02/11/15 4:36pm Recent Diagnosis
--- OUTSIDE RECORDS SUMMARY | 2017-03-28 02:39 | XMS REPORT | Continuity of Care Document ---
Author Author [facility] Organization [facility] Address Unknown Phone Unavailable Support Name Relationship Address Phone ABBIE RAM MD Caregiver [address] [place] [address] [place] [phone] MAHIN FERNANDEZ DO Caregiver [address] [place] [address] PAOLA BHAKTA Next Of Kin [address] [facility], [place] [id number] Insurance Providers Payer Name Policy Number Subscriber Name Relationship [facility] [id number] Paola Bhakta 01 Spouse Advance Directives Directive [...] F (96.8 - 99.1) Temperature (Calculated Celsius) 36.02151 degrees C (36.0 - 37.3) Pulse Rate [...] Encounters Encounter Location Date/Time Departed Emergency Room [facility] 02/11/15 4:36pm Recent Diagnosis
[2017-03-28] MEDS ORDERED: ALBUTEROL/IPRATROPIUM INHAL. 2.5mg-0.5mg/3ml Neb. AEROSOL ONE ×2 (02:45→04:15)
[2017-03-28] MEDS ORDERED: LORAZEPAM 2 MG/ML INJECTION IV ONE ×2 (02:45→03:30)
[2017-03-28] MEDS ORDERED: EPINEPHRINE 1mg/ml INJECTION AMP IM ONE ×2 (02:45→03:30)
[2017-03-28] MEDS ORDERED: HYDROMORPHONE 2mg/ml INJECTION IV ONE ×2 (02:45→03:30)
[2017-03-28] MEDS ORDERED: DiphenhydrAMINE 50 MG/ML INJECTION IV ONE ×2 (02:45→03:30)
[2017-03-28] MEDS: MAGNESIUM SULFATE 1 G in D5W 100 ML IV SCH ×2 (02:50→03:10)
--- NOTE | 2017-03-28 03:02 | NUR ---
RT IN ROOM AT THIS TIME.
--- NOTE | 2017-03-28 03:06 | ERPDOC ---
Departure Disposition Decision Date: March 28, 2017 Disposition Decision Time: 05:10 Disposition: 01 DISCHARGED HOME, SELF-CARE Impression Impression Impression: Primary Impression: Asthma exacerbation Severity: Severe Condition: Improved Seen By: Physician only Referrals: MAHIN FERNANDEZ DO (Family) Patient Instructions: Asthma (ED) Problems/Meds/Labs Reviewed?: Yes Medications reviewed and manag: Yes Additional Instructions: Continue home medications and steroid taper as directed Follow up care ordered?: Yes Mental Status: Alert Scripts Epinephrine (Epipen 2-Alexis) 0.3 Mg/0.3 Ml Auto.injct 1 VIAL IM Q1-2H, #2 PACK Prov: BULMARO ZARAGOZA MD 03/28/17 HPI - Dyspnea General Chief Complaint: Adult-Asthma Stated Complaint: TROUBLE BREATHING Time Seen by Provider: 02:29 Source: patient Exam Limitations: no limitations HPI - Dyspnea Initial Comments Patient returns with recurrence of severe asthma, tightness and pain across the chest, and dyspnea. Patient was seen earlier in the ER, received his typical medications and seemed improved until he went home. Symptoms worsen at home, did not respond his routine medications at home. Occurred At: home Onset/Timing: Rapid Severity: moderate, severe Activities at Onset: none Prior Episodes/Possible Cause: frequent episodes Aspirin Treatment Today: unknown Hx of Similar Symptoms: Yes Allergies: Coded Allergies: Penicillins (Verified Allergy, Unknown, 03/28/17) aspirin (Verified Allergy, Unknown, 03/28/17) Uncoded Allergies: GUACAMOLE (Allergy, Severe, DYSNEA, 07/31/15) BEE/WASP STINGS (Allergy, Unknown, ANAPHYLAXIS, 12/06/16) Past History Patient Surgical History Port-Placement. Past Medical History Respiratory: asthma Musculoskeletal: back pain Psychological: anxiety Surgical History Denies Surgeries General: other Family History Family PMH: FOUND: other Vaccines Hx Influenza Vaccination: Yes (fall 2013) Hx Pneumococcal Vaccination: Yes (WITHIN LAST 5 YEARS) Social History Smoking Status: Never smoker Does patient use chewing tobac: No Second Hand Exposure: No Substance Use Type: does not use Alcohol Intake: none Marital Status: Sexuality: female partner Housing: house Household Members: spouse Service: No Current Occupational Status: employed Occupational Hazard: No Advance Directives: Yes Full Code Record Review Pertinent history updated: Yes Review of Systems Constitutional Constitutional: DENIES: appetite decrease, appetite increase, chills, dizziness , fever, weakness ENMT Ears: DENIES: pain Hearing: DENIES: hearing loss, tinnitus Balance: DENIES: vertigo Mouth/Throat: DENIES: change in swallowing, change in voice, hoarsness, painful swallowing, sore throat Cardiovascular Cardiac: DENIES: chest pain, dyspnea on exertion Rhythm/Rate: DENIES: irregular beat, palpitations, tachycardia Vascular: DENIES: pedal edema Pulmonary Respiratory: dyspnea, DENIES: cough, exposure to TB, hyperventilation, last PPD , pleuritic chest pain, pneumonia hx, recent risky activities, tachypnea GI Upper Abdomen: DENIES: dysphagia, heartburn/indigestion, nausea, pain, vomiting Lower Abdomen: DENIES: blood in stool, constipation, diarrhea, pain General: DENIES: burning, dysuria, frequency, pain, urgency Musculoskeletal General: DENIES: cramps, joint pain, joint swelling, pain, weakness Integumentary Skin: DENIES: rash, sores Neurological General: DENIES: headache, numbness, tingling, vertigo, weakness Psychiatric Psychiatric: DENIES: anxiety, depression, nervousness Physical Exam General General Nourishment: well nourished, well developed, appears stated age General Body Habitus: well groomed Vitals and Pain First Documented Vital Signs Date Time Temp Pulse Resp B/P Pulse Ox O2 Delivery O2 Flow Rate FiO2 03/28/17 02:29 97.5 122 28 144/80 96 Room Air Weight: Kilograms: Height (feet): 5 Height (inches): 10.00 Triage Pain Scale: RN VS reviewed by Provider: Yes Normal Exams: Head: Normocephalic w/o trauma Eyes: Pupils are PERRLA w/ EOMI, No scleral icterus, irritation, or foreign bodies noted ENMT: No facial trauma, nasal exudates, pharyngeal erythema, or exudates are noted Neck: Full range of motion, without adenopathy, JVD, bruits or thyromegaly CV: Regular rate and rhythm, without murmur or gallop, Pulses 2+ all extremities, capillary refill, <2 seconds all ext., no pedal edema noted Abdomen: Bowel sounds positive, soft, non-tender, non-distended, no hepatosplenomegaly, masses or bruits noted Lymphatic: No lymphadenopathy, or lymphedema noted Musculoskeletal: No tenderness, or deformity noted, good range of motion, all extremities Integumentary: No rashes, hives, or bruising noted, hair and nails, without abnormality Neurologic: Patient is alert, and oriented, cranial nerves, motor/sensory/ cerebellar, exams w/o gross deficits, to observation Psychiatric: Patient exhibits, appropriate attention, emotion and affect Respiratory (brief) Respiratory: FOUND: equal bilaterally, symmetrical, wheezes, NOT FOUND: clear all [place] (course tight wheezes in both the upper and lower lung m[place]), rales , tenderness Progress Results/Orders Orders Procedure Category Date Status Time Iv Lock (Ed Only) EDM 03/28/17 Transmitted 02:31 Heparin Flush PHA 03/28/17 Complete (Heparin Flush) 02:45 Epinephrine PHA 03/28/17 Complete (Adrenalin) 02:45 Albuterol/Ipratropium PHA 03/28/17 Complete (Duoneb) 02:45 D5w (D5w) W/Magnesium PHA 03/28/17 Complete Sulfate 02:45 Diphenhydramine PHA 03/28/17 Complete (Benadryl) 02:45 Methylprednisolone PHA 03/28/17 Complete Sod Succ (Solu-Medrol 02:45 Lorazepam (Ativan) PHA 03/28/17 Complete 02:45 Hydromorphone PHA 03/28/17 Complete (Dilaudid) 02:45 Epinephrine PHA 03/28/17 Complete (Adrenalin) 03:30 Lorazepam (Ativan) PHA 03/28/17 Complete 03:30 Diphenhydramine PHA 03/28/17 Complete (Benadryl) 03:30 Hydromorphone PHA 03/28/17 Complete (Dilaudid) 03:30 Albuterol Sulfate PHA 03/28/17 Complete (Proventil 2.5 Mg/3 Ml 04:15 Albuterol/Ipratropium PHA 03/28/17 Complete (Duoneb) 04:15 Methylprednisolone PHA 03/28/17 Complete Sod Succ (Solu-Medrol 04:15 Medications Current ED Medications Heparin Sodium (Porcine) (Heparin Flush) 500 unit O ONCE IV ; Start 03/28/17 at 02:45; Stop 03/28/17 at 02:46; Status DC Epinephrine HCl (Adrenalin) 0.5 mg O ONCE IM Last administered on 03/28/17t 02 :49; Start 03/28/17 at 02:45; Stop 03/28/17 at 02:46; Status DC Albuterol/ Ipratropium 18 ml 18 ml O ONCE AEROSOL Last administered on 03:14; Start 03/28/17 at 02:45; Stop 03/28/17 at 02:46; Status DC Magnesium Sulfate/ Dextrose/Water (Magnesium Sulfate/D5W) 102 ml @ 100 mls/hr Q1H2M IV Last administered on 03/28/17 02:50; Start 03/28/17 at 02:45; Stop at 04:48; Status DC Diphenhydramine HCl (Benadryl) 50 mg O ONCE IV Last administered on 03/28/17 02:43; Start 03/28/17 at 02:45; Stop 03/28/17 at 02:46; Status DC Methylprednisolone Sodium Succinate (Solu-Medrol) 125 mg O ONCE IV Last administered on 03/28/17 02:46; Start 03/28/17 at 02:45; Stop 03/28/17 at 02:46 ; Status DC Lorazepam (Ativan) 0.25 mg O ONCE IV Last administered on 03/28/17 02:46; Start 03/28/17 at 02:45; Stop 03/28/17 at 02:46; Status DC Hydromorphone HCl (Dilaudid) 0.5 mg O ONCE IV Last administered on 03/28/17 02:49; Start 03/28/17 at 02:45; Stop 03/28/17 at 02:46; Status DC Epinephrine HCl (Adrenalin) 0.5 mg O ONCE IM Last administered on 03/28/17 03 :34; Start 03/28/17 at 03:30; Stop 03/28/17 at 03:31; Status DC Lorazepam (Ativan) 0.25 mg O ONCE IV Last administered on 03/28/17 03:37; Start 03/28/17 at 03:30; Stop 03/28/17 at 03:31; Status DC Diphenhydramine HCl (Benadryl) 50 mg O ONCE IV Last administered on 03/28/17 03:34; Start 03/28/17 at 03:30; Stop 03/28/17 at 03:31; Status DC Hydromorphone HCl (Dilaudid) 0.5 mg O ONCE IV Last administered on 03/28/17 03:39; Start 03/28/17 at 03:30; Stop 03/28/17 at 03:31; Status DC Albuterol Sulfate (Proventil 2.5 Mg/3 ml) 10 mg O ONCE AEROSOL Last administered on 03/28/17 04:05; Start 03/28/17 at 04:15; Stop 03/28/17 at 04:16 ; Status DC Albuterol/ Ipratropium (Duoneb) 12 ml O ONCE AEROSOL Last administered on 03/28 05:07; Start 03/28/17 at 04:15; Stop 03/28/17 at 04:16; Status DC Methylprednisolone Sodium Succinate (Solu-Medrol) 125 mg O ONCE IV Last administered on 03/28/17 04:25; Start 03/28/17 at 04:15; Stop 03/28/17 at 04:16 ; Status DC Progress Progress Patient given his routine doses of epinephrine, magnesium citrate, multiple duo nebs with heliox, Solu-Medrol, Ativan, 0.5 mg Dilaudid IV - patient didn't break loose, but still has persistent wheezing and tightness. Given second round of Ativan Dilaudid epinephrine Benadryl and 4 additional doses of albuterol nebs - improving, to take treatments off of heliox without difficulty , but still mild tightness in the lung bases as well as glottic tightness. Patient given additional dose of Solu-Medrol and 4 additional DuoNeb nebs - Patient finally feels back to his baseline, and is ready for dismissal at 5:10 AM. Patient is given additional prescriptions for 2 EpiPen's 4 coming up traveling. BULMARO ZARAGOZA MD March 28, 2017 03:05
--- NOTE | 2017-03-28 04:14 | NUR ---
PROVIDER DR ZARAGOZA IN ROOM AT THIS TIME.
[2017-03-28] MEDS ORDERED: ALBUTEROL INH.SOLN. 2.5mg/3ml (0.083%) Neb. AEROSOL ONE (04:15)
[2017-03-28] MEDS ORDERED: EPIN0.3P3 IM (05:12)
--- NOTE | 2017-03-28 05:23 | NUR ---
STATUS PT FEELS LIKE HE IS AT HIS BASELINE, NO S/S OF ACUTE DISTRESS AT THIS TIME. PT WILL REST IN BED UNTIL HIS RIDE ARRIVES, HE STATES "IT IS GOING TO BE A WHILE". PT IS GIVEN SPRITE AND COFFEE PER REQUEST.
--- NOTE | 2017-03-28 06:15 | NUR ---
PORT PORT FLUSHED WITH NS THEN HEPARIN AND PORT DC'D
[2017-03-28 06:20] VITALS: BP 110/51; PULSE 96; RESP 14; TEMP 97.5; O2SAT 94
--- NOTE | 2017-03-28 07:23 | NUR ---
DEPARTURE PT LEFT DEPARTMENT [facility] IN NO DISTRESS
--- NOTE | 2017-03-28 08:00 | NUR ---
INSTRUCTIONS PT LEFT DISMISSAL INSTRUCTIONS AND RX ON CART. ATTEMPTED TO CALL NUMBER LISTED WITH NO ANSWER AND THEN WENT TO FAX TONE
== END 2017-03-28 07:23 | disposition home or self-care (01) ==
LOC: ED 02:27
DX: J45.901 Unspecified asthma with (acute) exacerbation (principal)
CPT/HCPCS: 94640; 96365; 96372; 96375; 96376; 99284; J0171; J1170; J1200; J1642; J2060; J2930; J3475; J7060; J7611

== ENCOUNTER 2017-12-04 15:23 | Inpatient (IN) ==
[2017-12-04] MEDS ORDERED: ALBUTEROL/IPRATROPIUM 2.5mg-0.5mg/3ml NEB AEROSOL ONE ×2 (15:32→16:48)
[2017-12-04] MEDS ORDERED: METHYLPREDNISOLONE SOD SUCC 125mg/2ml INJECTION IVP ONE (15:33)
[2017-12-04] MEDS ORDERED: DiphenhydrAMINE 50 MG/ML INJECTION IVP ONE ×2 (15:33→16:21)
[2017-12-04] MEDS ORDERED: FentaNYL 100 MCG/2 ML INJECTION IVP ONE ×3 (15:34→17:04)
[2017-12-04] MEDS ORDERED: EPINEPHrine 1mg/ml PF INJ AMP IM ONE ×2 (15:39→16:20)
--- NOTE | 2017-12-04 15:41 | Emergency Department Report ---
SOB HPI - General Chief Complaint: Shortness of Breath/Dyspnea <Gustavo Meza - 12/04/17 19:42> Stated Complaint: difficulty breathing <Gustavo Meza 12/04/17 19:42> Time Seen by Provider: 12/04/17 15:41 <Gustavo Meza 12/04/17 19:42> Source: patient <Rohit Queen - 12/04/17 18:18> Mode of arrival: ambulatory <Rohit Queen - 12/04/17 18:18> Limitations: no limitations <Rohit Queen - 12/04/17 18:18> - History of Present Illness Patient is a 52-year-old male history of severe asthma. Patient is well-known to [facility] emergency department, averaging 2 visits a month. Patient seen in ER last night for asthma exacerbation at that time was diagnosed with a pneumonia on the left lower lobe, patient was started on doxycycline, discharged home after improvement of symptoms back to baseline. Patient recently presents to the ER for evaluation of increasing shortness of air. Patient stated he continued to have problems she returned home with increasing wheezing and dyspnea, patient decided to re-present to the ER this afternoon on arrival patient unable to speak in complete sentences, tachycardic still satting 94% on room air <Ana Qeuenn - 12/04/17 18:18> MD Complaint: shortness of breath, "asthma attack" <Rohit Queen - 18:18> Severity: severe <Ana Queenn - 12/04/17 18:18> Consistency/Duration: constant <Ana Queenn - 12/04/17 18:18> Known history of: asthma <Ana Queenn - 12/04/17 18:18> - Related Data Home Medications Medication Instructions Recorded Confirmed Zafirlukast [Accolate] 20 mg PO BID #0 07/13/16 12/04/17 Quetiapine [Seroquel] 50 mg PO HS 05/30/17 12/04/17 Lansoprazole 15 mg PO ACB 10/14/17 12/04/17 ALPRAZolam [Xanax] 0.5 mg PO DAILY PRN 10/22/17 12/04/17 Albuterol/Ipratropium [Duoneb] 1 unit AEROSOL Q4H 10/22/17 12/04/17 Theophylline Anhydrous 600 mg PO DAILY 10/22/17 12/04/17 [Theophylline] Albuterol Sulfate [Proair Hfa] 1 spray INH Q4H PRN 11/18/17 12/04/17 Cyclobenzaprine [Flexeril] 10 mg PO BID PRN 11/18/17 12/04/17 Ipratropium 0.03% NASAL SPRAY 1 spray KELSEY DAILY 11/18/17 12/04/17 [Atrovent 0.03% Nasal [place]] Furosemide [Lasix] 20 mg PO DAILY 12/04/17 12/04/17 Gabapentin [Neurontin] 600 mg PO TID 12/04/17 12/04/17 Hydrocodone/APAP 7.5/325 [[place] 1 tab PO TID PRN 12/04/17 12/04/17 7.5/325] Previous Rx's Medication Instructions Recorded EPINEPHrine Pen [Epipen] 0.3 mg IM O PRN #2 auto.injct 08/07/17 Doxycycline [Vibramycin] 100 mg PO BID #14 tab 12/03/17 PredniSONE [Deltasone] 40 mg PO WB #10 tab 12/03/17 <Gustavo Meza - 12/04/17 19:42> Allergies Allergy/AdvReac Type Severity Reaction Status Date / Time aspirin Allergy Unknown Verified 12/04/17 15:56 Penicillins Allergy Unknown Verified 12/04/17 15:56 levofloxacin [From Levaquin] Allergy Verified 12/04/17 15:56 menthol [From [place]] Allergy RASH Verified 12/04/17 15:56 methyl salicylate Allergy RASH Verified 12/04/17 15:56 [From [place]cy Hot] [place]ec[place] Allergy CLOSED Verified 12/04/17 15:56 AIRWAY GUACAMOLE Allergy Severe DYSNEA Uncoded 12/04/17 13:41 BEE/WASP STINGS Allergy Unknown ANAPHYLAXIS Uncoded 12/04/17 13:41 COD FISH Allergy CLOSED Uncoded 12/04/17 13:41 AIRWAY <Gustavo Meza - 12/04/17 19:42> Review of Systems Constitutional: Denies: fever, chills, weakness, weight change <Rohit Queen Q - 12/04/17 18:18> Eyes: Denies: eye pain, eye discharge <BretRohit Q - 12/04/17 18:18> ENT: Denies: throat pain, dental pain, hearing loss <BretRohit Q 18:18> Cardiovascular: Denies: chest pain, palpitations, dyspnea on exertion <Bret Rohit Q - 12/04/17 18:18> Respiratory: Reports: cough, dyspnea, wheezes <Rohit Queen 12/04/17 18: 18> Gastrointestinal: Reports: abdominal pain. Denies: nausea, vomiting <[place] grider 12/04/17 18:18> Neurological: Denies: headache <BretRhoit grider 12/04/17 18:18> Psychiatric: Reports: anxiety. Denies: depression <BretRohit 18:18> [facility] Patient Stated Medical History Other HEENT Yes: GLASSES Asthma Yes Bronchitis Yes Chronic Obstructive Pulmonary Yes Disease (COPD) Other Respiratory Yes: SEVERE ASTHMA WITH ANXIETY Gastroesophageal Reflux Yes Disease Clinic Medical History Chronic back pain (Acute Medical) GERD (gastroesophageal reflux disease) (Acute Medical) Severe asthma (Acute Medical) <Gustavo Meza E 12/04/17 19:42> Surgical History: Port-A-Cath. Surgery for acid reflux <BretRohit grider 15:41> - Social History Smoking status: Never smoker <[place],Rohit 12/04/17 15:41> Substance use type: does not use <Rohit Queen 12/04/17 18:18> Alcohol intake frequency: does not drink <BretRohit grider 12/04/17 18:18> Physical Exam - Limitations Limitations: no limitations <Rohit Queen 12/04/17 18:18> - General General appearance: alert, in distress <Rohit Queen 12/04/17 18:18> - ENT ENT exam: Present: normal oropharynx, mucous membranes moist <Rohit Queen 12/04/17 18:18> - Chest Chest inspection: Present: normal inspection, symmetric chest wall rise. Absent : tenderness <Rohit Queen 12/04/17 18:18> - Respiratory Respiratory exam: Present: wheezes, stridor, accessory muscle use, prolonged expiratory phase <Rohit Queen Q - 12/04/17 18:18> - Cardiovascular Cardiovascular exam: Present: regular rate, normal rhythm, normal heart sounds <Rohit Queen Q - 12/04/17 18:18> - Abdominal Exam Abdominal exam: Present: soft, normal bowel sounds. Absent: distention, tenderness, guarding, rebound, psoas sign, obturator sign, Iqbal's sign, hernia <Rohit Queen Q - 12/04/17 18:18> - Skin Skin exam: Present: warm, dry <Rohit Queen Q - 12/04/17 18:18> - Neurological Exam Neurological exam: Present: alert, oriented X3 <Rohit Queen Q - 12/04/17 18: 18> - Psychiatric Psychiatric exam: Present: normal affect, normal mood <Rohit Queen Q - 12/04 18:18> Course Vital Signs Temperature 98.5 F 12/04/17 15:25 Pulse Rate 97 12/04/17 15:25 Respiratory Rate 22 12/04/17 15:25 Blood Pressure 154/92 H 12/04/17 15:25 Pulse Oximetry 98 12/04/17 15:25 Temperature 98.5 F 12/04/17 15:25 Pulse Rate 123 H 12/04/17 19:15 Respiratory Rate 18 12/04/17 19:23 Blood Pressure 142/63 H 12/04/17 19:15 Pulse Oximetry 22 L 12/04/17 19:23 <Gustavo Meza E - 12/04/17 19:42> Vital Signs Temperature 98.5 F 12/04/17 15:25 Pulse Rate 97 12/04/17 15:25 Respiratory Rate 22 12/04/17 15:25 Blood Pressure 154/92 H 12/04/17 15:25 Pulse Oximetry 98 12/04/17 15:25 Temperature 98.5 F 12/04/17 15:25 Pulse Rate 123 H 12/04/17 19:15 Respiratory Rate 18 12/04/17 19:23 Blood Pressure 142/63 H 12/04/17 19:15 Pulse Oximetry 22 L 12/04/17 19:23 <Ana Queenn Q - 12/04/17 18:18> Shortness of Breath/Dyspnea - MDM Narrative Medical decision making narrative: Gustavo Meza. Assumed care at 6:15 PM. Spoke with hospitalist on-call at [facility]. Because the admission here was going to be hospitalist with missile technician and they do not have a missile technician available at night there, he was uncomfortable taking a downward transfer. I spoke with the patient and he is understanding. The hospitalist did not refused to admit, but recommended that we call in the morning when pulmonology is available for a lateral transfer if patient still on the transfer in the morning. I think this is a good plan. In agreement as well. He'll be admitted here, Dr. Solis is seeing him at this time. I did order an ABG, and giving another DuoNeb treatment ordered 0.25 mg Ativan IV. <Gustavo Meza - 12/04/17 19:17> Patient's x-ray unchanged from yesterday, patient received multiple medications in the ER, [place]. At this time I feel it would be prudent to admit patient to the hospital. Discussed case with Dr. Calvo, hospitalist service and Dr. Durant, pulmonology , they will admit patient to the ICU. Patient's and patient's family wish to be transferred to [facility], with patient's missile technician. Did discuss with patient and patient's family that we do have a ICU bed and a missile technician here who can take care of the patient they still wish transfer. Explained to patient that this would be a transfer by patient request. <Rohit Queen - 12/04/17 18:18> - Differential Diagnosis Likely: acute exacerbation of chronic obstructive airways disease, congestive heart failure, community acquired pneumonia, asthma with exacerbation, pulmonary embolism <Rohit Queen - 12/04/17 18:18> - Medical Records Attestation: I reviewed the patient's medical records. <Rohit Queen - 18:18> - Lab Data Attestation: I reviewed the patient's lab results. <Rohit Queen - 18:18> Result diagrams: 12/04/17 17:46 12/04/17 17:46 <Gustavo Meza - 12/04/17 19:42> Lab Results 12/04/17 12/04/17 12/04/17 Range/Units 17:46 17:46 18:48 WBC 16.1 H (4.5-11.0) T/MM3 RBC 4.57 (4.50-5.90) M/MM3 Hgb 13.9 (13.5-17.5) GM/DL Hct 40.0 L (41-53) % MCV 87.5 (80-100) UM3 MCH 30.4 (26-34) UUG MCHC 34.8 (31-37) GM/DL RDW Std Deviation 39.8 (36.9-50.2) FL Plt Count 316 (130-400) T/MM3 MPV 9.4 (9.4-12.4) UM3 Immature Gran % (Auto) Not performed Neut % (Auto) Not performed Lymph % (Auto) Not performed [place] % (Auto) Not performed Eos % (Auto) Not performed Baso % (Auto) Not performed Neut # (Auto) Not performed Lymph # (Auto) Not performed [place] # (Auto) Not performed Eos # (Auto) Not performed Baso # (Auto) Not performed Abs Immat Gran (auto) Not performed Neutrophils % (Manual) 94.0 H (33-66) % Lymphocytes % (Manual) 5.0 L (23-45) % Monocytes % (Manual) 1.0 (0-9.0) % Neutrophils # (Manual) 15.1 H (1.8-7.7) T/MM3 Lymphocytes # (Manual) 0.8 L (1-4.8) T/MM3 Monocytes # (Manual) 0.2 (0-0.8) T/MM3 RBC Morph Comment Normal ABG pH 7.400 (7.350-7.450) ABG pCO2 36 (34-45) MMHG ABG pO2 88 (80-100) MMHG ABG HCO3 22 (22-26) MEQ/L ABG Total CO2 23.4 (23-27) MEQ/L ABG O2 Saturation 97.0 (95.0-98.0) % ABG Base Excess -2.1 L (-2.0-2.0) MMOL/L O2 Delivery Method Room air Turbidity < 20 (0-20) Sodium 141 (134-144) MEQ/L Potassium 3.4 L (3.6-5) MEQ/L Chloride 106 (98-107) MEQ/L Carbon Dioxide 24 (22-30) MEQ/L Anion Gap 11 (5-15) MEQ/L BUN 20.0 (9-20) MG/DL Creatinine 0.9 (0.8-1.5) MG/DL GFR Calculation 88 BUN/Creatinine Ratio 22 (6-26) RATIO Glucose 247 H (75-110) MG/DL Calculated Osmolality 282 H (261-280) MOSM/KG Calcium 9.6 (8.4-10.2) MG/DL Icterus Index < 2 (0-7) Specimen Hemolysis < 15 (0-25) <Gustavo Meza E - 12/04/17 19:42> Lab Results 12/04/17 12/04/17 12/04/17 Range/Units 17:46 17:46 18:48 WBC 16.1 H (4.5-11.0) T/MM3 RBC 4.57 (4.50-5.90) M/MM3 Hgb 13.9 (13.5-17.5) GM/DL Hct 40.0 L (41-53) % MCV 87.5 (80-100) UM3 MCH 30.4 (26-34) UUG MCHC 34.8 (31-37) GM/DL RDW Std Deviation 39.8 (36.9-50.2) FL Plt Count 316 (130-400) T/MM3 MPV 9.4 (9.4-12.4) UM3 Immature Gran % (Auto) Not performed Neut % (Auto) Not performed Lymph % (Auto) Not performed [place] % (Auto) Not performed Eos % (Auto) Not performed Baso % (Auto) Not performed Neut # (Auto) Not performed Lymph # (Auto) Not performed [place] # (Auto) Not performed Eos # (Auto) Not performed Baso # (Auto) Not performed Abs Immat Gran (auto) Not performed Neutrophils % (Manual) 94.0 H (33-66) % Lymphocytes % (Manual) 5.0 L (23-45) % Monocytes % (Manual) 1.0 (0-9.0) % Neutrophils # (Manual) 15.1 H (1.8-7.7) T/MM3 Lymphocytes # (Manual) 0.8 L (1-4.8) T/MM3 Monocytes # (Manual) 0.2 (0-0.8) T/MM3 RBC Morph Comment Normal ABG pH 7.400 (7.350-7.450) ABG pCO2 36 (34-45) MMHG ABG pO2 88 (80-100) MMHG ABG HCO3 22 (22-26) MEQ/L ABG Total CO2 23.4 (23-27) MEQ/L ABG O2 Saturation 97.0 (95.0-98.0) % ABG Base Excess -2.1 L (-2.0-2.0) MMOL/L O2 Delivery Method Room air Turbidity < 20 (0-20) Sodium 141 (134-144) MEQ/L Potassium 3.4 L (3.6-5) MEQ/L Chloride 106 (98-107) MEQ/L Carbon Dioxide 24 (22-30) MEQ/L Anion Gap 11 (5-15) MEQ/L BUN 20.0 (9-20) MG/DL Creatinine 0.9 (0.8-1.5) MG/DL GFR Calculation 88 BUN/Creatinine Ratio 22 (6-26) RATIO Glucose 247 H (75-110) MG/DL Calculated Osmolality 282 H (261-280) MOSM/KG Calcium 9.6 (8.4-10.2) MG/DL Icterus Index < 2 (0-7) Specimen Hemolysis < 15 (0-25) <Rohit Queen 12/04/17 18:18> - Radiology Data Attestation: I reviewed the patient's radiology results. <Rohit Queen - 18:18> Unchanged from prior x-ray yesterday, left lower lobe infiltrate, improving right middle lobe <Rohit Queen - 12/04/17 18:18> Disposition Clinical Impression: Acute exacerbation of chronic obstructive airways disease , Community acquired pneumonia <Gustavo Meza - 12/04/17 19:42> Disposition: 02 To [facility] <Gustavo Meza 12/04/17 19:42> Condition: Stable <Gustavo Meza 12/04/17 19:42> Instructions: <Gustavo Meza 12/04/17 19:42> Prescriptions: No Action Quetiapine [Seroquel] 50 mg PO HS Lansoprazole 15 mg PO ACB ALPRAZolam [Xanax] 0.5 mg PO DAILY PRN PRN Reason: Anxiety Albuterol Sulfate [Proair Hfa] 1 spray INH Q4H PRN PRN Reason: Prn Orders Ipratropium 0.03% NASAL SPRAY [Atrovent 0.03% Nasal [place]] 1 spray KELSEY DAILY PredniSONE [Deltasone] 40 mg PO WB #10 tab Hydrocodone/APAP 7.5/325 [[place] 7.5/325] 1 tab PO TID PRN PRN Reason: Pain Gabapentin [Neurontin] 600 mg PO TID Zafirlukast [Accolate] 20 mg PO BID #0 EPINEPHrine Pen [Epipen] 0.3 mg IM O PRN #2 auto.injct PRN Reason: As Needed Albuterol/Ipratropium [Duoneb] 1 unit AEROSOL Q4H Theophylline Anhydrous [Theophylline] 600 mg PO DAILY Cyclobenzaprine [Flexeril] 10 mg PO BID PRN PRN Reason: Muscle Pain Doxycycline [Vibramycin] 100 mg PO BID #14 tab Furosemide [Lasix] 20 mg PO DAILY <Gustavo Meza 12/04/17 19:42> Referrals: James Chambers DO [Family Provider] - <Gustavo Meza 12/04/17 19 :42> Forms: <Gustavo Meza 12/04/17 19:42> Time of Disposition: 19:42 <Gustavo Meza 12/04/17 19:42> - Seen By: physician <Gustavo Meza 12/04/17 19:42>
[2017-12-04] MEDS: MAGNESIUM SULFATE 1gm PREMIX 1 GM/100 ML BAG IV SCH ×2 (15:53→16:46)
[2017-12-04] MEDS: SALINE FLUSH 10ml SYRINGE IVF PRN ×4 (15:54→17:12)
[2017-12-04] MEDS ORDERED: ALBUTEROL 2.5mg/3ml (0.083%) NEB AEROSOL ONE ×4 (15:56→18:06)
--- OUTSIDE RECORDS SUMMARY | 2017-12-04 16:37 | External Medical Summary | Clinical Summary ---
:1965 Author Organization [facility] Address [address] [place] [id number] Phone Care Team Providers Name Role Phone Unavailable Primary Care Provider Unavailable Allergies Active Allergy Reactions Severity Noted Date Comments Aspirin Anaphylaxis High 02/01/2014 Penicillins Anaphylaxis High 02/01/2014 Current Medications Prescription Sig. Disp. Refills Start Date End Date Status diphenhydrAMINE (BENADRYL) Take 50 mg by Active 25 mg capsule mouth. THEOPHYLLINE PO Take 20 mg by Active mouth. predniSONE (DELTASONE) 20 MG Take 30 mg by Active tablet mouth. Active Problems Not on file Social History Tobacco Use Types Packs/Day Years Used Date Never Smoker Sex Assigned at Date Recorded Not on file Last Filed Vital Signs Vital Sign Reading Time Taken Blood Pressure 128/75 02/01/2014 6:00 PM CDT Pulse 122 02/01/2014 6:25 PM CDT Temperature - - Respiratory Rate 20 02/01/2014 6:25 PM CDT Oxygen Saturation 96% 02/01/2014 5:55 PM CDT Inhaled Oxygen Concentration - - Weight 87.1 kg (192 lb) 02/01/2014 2:55 PM CDT Height 177.8 cm (5' 10") 02/01/2014 2:55 PM CDT Body Mass Index 27.55 02/01/2014 2:55 PM CDT Plan of Treatment Health Maintenance Due Date Last Done Comments Hepatitis C Screening 1965 DTaP,Tdap,and Td Vaccines (1 - Tdap) 1983 Colon Cancer Screening 2014 Influenza Vaccine (#1) 2017 Results Not on filefrom Last 3 Months
[2017-12-04] MEDS ORDERED: EPINEPHrine 1mg/ml (1:1000) vial IM ONE (16:45)
[2017-12-04] MEDS ORDERED: KETAMINE 500 MG/10 ML INJECTION IVP ONE (17:04)
[2017-12-04] MEDS ORDERED: KETOROLAC 30 MG/ML INJECTION IVP ONE (18:37)
[2017-12-04] MEDS ORDERED: ALBUTEROL 2.5mg/0.5ml (0.5%) NEB AEROSOL ONE (19:17)
[2017-12-04] MEDS ORDERED: SALINE FLUSH 10ml SYRINGE IV PRN ×2 (19:46→19:51)
[2017-12-04] MEDS ORDERED: ALPRAZolam 0.5 MG TABLET PO PRN (19:51)
[2017-12-04] MEDS ORDERED: CYCLOBENZAPRINE 10 MG TABLET PO PRN (19:51)
[2017-12-04] MEDS ORDERED: ALBUTEROL 2.5mg/3ml (0.083%) NEB AEROSOL PRN (19:51)
[2017-12-04] MEDS ORDERED: GI COCKTAIL 30 ML PO ONE (19:55)
--- NOTE | 2017-12-04 19:57 | History & Physical Report ---
History of Present Illness Date: 12/05/17 Chief complaint: SOB HPI: Mr. Bhakta is a 52-year-old gentleman who has extensive visits to the emergency room's in [place] for episodes of status asthmaticus. He sees a industrial roofer helper in [facility]. He has multiple visits to the emergency room every month for respiratory distress and has an extensive list of bundled medications that he has given on arrival including: [id number] DuoNeb's, epinephrine injection, magnesium, theophylline, Dilaudid, and Ativan. He has been in the emergency room just over 24 hours ago and showed improvement with this treatment prior. He has been having a nagging cough and what sounds as respiratory infectious type of picture (chest discomfort cough, increase in sputum, malaise and subjectively febrile) and returned to the emergency room with essentially a repeat of this treatment regimen. Review of Systems All systems PM: 10-point ROS was reviewed, no additional remarkable complaints except - Constitutional Constitutional: Present: as per HPI - EENMT Mouth/Throat: Absent: pain, scratchy throat - Cardiovascular Cardiovascular: Absent: chest pain, palpitations, syncope - Respiratory Respiratory: Present: cough, dyspnea, pain on inspiration - Gastrointestinal Gastrointestinal: Absent: abdominal pain, diarrhea, vomiting - Musculoskeletal Musculoskeletal: Present: myalgias - Neurological Neurological: Present: headache(s). Absent: focal weakness, frequent falls - Psychiatric Psychiatric: Present: abnormal sleep pattern Past Medical History Clinic Medical History Chronic back pain (Acute Medical) GERD (gastroesophageal reflux disease) (Acute Medical) Severe asthma (Acute Medical) Surgical History: Port-A-Cath. Surgery for acid reflux Family History Updates: Inquired and no further pertinent information - Social History Smoking status: Never smoker Medications Home Medications Medication Instructions Recorded Confirmed Type Zafirlukast [Accolate] 20 mg PO BID #0 07/13/16 12/04/17 History Quetiapine [Seroquel] 50 mg PO HS 05/30/17 12/04/17 History Lansoprazole 15 mg PO ACB 10/14/17 12/04/17 History ALPRAZolam [Xanax] 0.5 mg PO DAILY PRN 10/22/17 12/04/17 History Albuterol/Ipratropium [Duoneb] 1 unit AEROSOL Q4H 10/22/17 12/04/17 History Theophylline Anhydrous 600 mg PO DAILY 10/22/17 12/04/17 History [Theophylline] Albuterol Sulfate [Proair Hfa] 1 spray INH Q4H PRN 11/18/17 12/04/17 History Cyclobenzaprine [Flexeril] 10 mg PO BID PRN 11/18/17 12/04/17 History Ipratropium 0.03% NASAL SPRAY 1 spray KELSEY DAILY 11/18/17 12/04/17 History [Atrovent 0.03% Nasal [place]] Furosemide [Lasix] 20 mg PO DAILY 12/04/17 12/04/17 History Gabapentin [Neurontin] 600 mg PO TID 12/04/17 12/04/17 History Hydrocodone/APAP 7.5/325 [[place] 1 tab PO TID PRN 12/04/17 12/04/17 History 7.5/325] Allergies Allergy/AdvReac Type Severity Reaction Status Date / Time aspirin Allergy Unknown Verified 12/04/17 15:56 Penicillins Allergy Unknown Verified 12/04/17 15:56 levofloxacin [From Levaquin] Allergy Verified 12/04/17 15:56 menthol [From [place] Hot] Allergy RASH Verified 12/04/17 15:56 methyl salicylate Allergy RASH Verified 12/04/17 15:56 [From Icy Hot] [place] Allergy CLOSED Verified 12/04/17 15:56 AIRWAY GUACAMOLE Allergy Severe DYSNEA Uncoded 12/04/17 13:41 BEE/WASP STINGS Allergy Unknown ANAPHYLAXIS Uncoded 12/04/17 13:41 COD FISH Allergy CLOSED Uncoded 12/04/17 13:41 AIRWAY Exam Vital Signs: Temperature 98.5 F 12/04/17 15:25 Pulse Rate 123 H 12/04/17 19:15 Respiratory Rate 18 12/04/17 19:23 Blood Pressure 142/63 H 12/04/17 19:15 Pulse Oximetry 22 L 12/04/17 19:23 - Constitutional Present: mild distress, well nourished, well developed - Routine HEENT Exam Eye: Present: EOMI, PERRL ENT: Present: mucous membranes moist, dentition normal - Routine Neck Exam Present: supple. Absent: lymphadenopathy - Routine Respiratory Exam Present: CTA bilaterally, respiratory distress - Routine Cardiovascular Exam Present: S1, S2, tachycardia. Absent: murmur - Routine Abdominal Exam Present: soft, normoactive bowel sounds, non distended. Absent: tenderness - Routine Extremities Exam Present: normal capillary refill - Routine Skin Exam Present: dry, warm - Routine Neurological Exam Present: alert, oriented X3, CN II-XII intact - Routine Psychiatric Exam Present: normal affect Results - Labs CBC & Chem 7: 12/04/17 17:46 12/04/17 17:46 - ABG Interpretation Attestation: I reviewed and interpreted this ABG. Interpretation: normal - Impressions Chest x-ray shows what may be a trace of hazy infiltrate and radiology notes this. It is a very equivocal finding Assessment and Plan (1) Asthma with exacerbation Current visit: No Status: Acute (2) Community acquired pneumonia Current visit: Yes Status: Suspected Assessment and Plan: Mr. Bhakta received an extensive round of treatment in the emergency room and is likely tachycardic secondary to this. He is holding her saturations well and arterial blood gas is reassuring. At the time of seeing him a 2nd time in the emergency room he was 95% on room air with little effort. He was initially to transfer to the ICU but then opted to go to [facility] to see his industrial roofer helper but he is unavailable. He will then stay here in our ICU as we do have Dr. Durant available if his pulmonary condition deteriorates. We'll continue aggressive treatment with DuoNeb's, steroids on schedule, epinephrine. Patient is being transferred to the ICU. If the patient requires anxiolysis, I'm preferential to quetiapine or Haldol. I will save benzodiazepines and their analogues for rapid sequencing intubation should it come to this. Treating pain with nonnarcotic medications at this time. For the possibility of pneumonia I'm starting Lisa azithromycin IV. He does have a penicillin allergy but cephalosporins for many decades have only incidental crossover with penicillins since the modern manufactured cephalosporins no longer contain trace penicillin. For this reason he will get Rocephin as well, and if there is respiratory difficulty worsening with this, we are prepared for RSI. Patient is being placed in the ICU under observation status DVT Prophylaxis: Lovenox - Physician Narrative Narrative: Date: 12/04/17 Time: 1955 Hospital Course Summary Disclaimer: The visit summary below is not to be considered part of the above Progress Note.
[2017-12-04 20:00] VITALS: BMI 27.7
[2017-12-04] MEDS ORDERED: ENOXAPARIN 40 MG/0.4 ML INJECTION SQ SCH (20:00)
[2017-12-04] MEDS ORDERED: CEFTRIAXONE 1 G in NS 100 ML IV SCH (20:15)
[2017-12-04] MEDS: ALBUTEROL 2.5mg/3ml (0.083%) NEB AEROSOL PRN (20:20)
[2017-12-04] MEDS: ALBUTEROL/IPRATROPIUM 2.5mg-0.5mg/3ml NEB AEROSOL SCH (20:21)
[2017-12-04] MEDS: D5-1/2NS 1,000 ML IV SCH (20:38)
[2017-12-04] MEDS: ZAFIRLUKAST 20 MG PO SCH (20:55)
[2017-12-04] MEDS: GABAPENTIN 600 MG TABLET PO SCH (20:56)
[2017-12-04] MEDS ORDERED: METHYLPREDNISOLONE SOD SUCC 125mg/2ml INJECTION IVP SCH (21:00)
[2017-12-04] MEDS: HYDROCODONE/APAP 7.5 MG/325 MG TABLET PO PRN (21:00)
[2017-12-04] MEDS ORDERED: QUETIAPINE 25 MG TABLET PO SCH (21:00)
[2017-12-04] MEDS: AZITHROMYCIN IV 500 MG in NS 250ml 250 ML IV SCH (21:14)
[2017-12-04] MEDS: METHYLPREDNISOLONE SOD SUCC 125mg/2ml INJECTION IVP SCH (21:30)
[2017-12-05] MEDS: METHYLPREDNISOLONE SOD SUCC 125mg/2ml INJECTION IVP SCH ×4 (02:37→20:18)
[2017-12-05] MEDS: ALBUTEROL 2.5mg/3ml (0.083%) NEB AEROSOL PRN ×2 (03:50→09:36)
[2017-12-05] MEDS: ALBUTEROL/IPRATROPIUM 2.5mg-0.5mg/3ml NEB AEROSOL SCH ×6 (07:08→20:24)
[2017-12-05] MEDS: OMEPRAZOLE 20 MG CAPSULE PO SCH (07:17)
[2017-12-05] MEDS ORDERED: CEFTRIAXONE 1 G in NS 50 ML IV SCH ×2 (07:45→20:00)
[2017-12-05] MEDS ORDERED: PredniSONE 20 MG TABLET PO SCH (08:00)
[2017-12-05] MEDS: THEOPHYLLINE 200 MG PO SCH ×2 (08:05→08:26)
[2017-12-05] MEDS: FUROSEMIDE 20 MG TABLET PO SCH (08:23)
[2017-12-05] MEDS: ENOXAPARIN 40 MG/0.4 ML INJECTION SQ SCH (08:23)
[2017-12-05] MEDS: GABAPENTIN 600 MG TABLET PO SCH ×3 (08:23→20:19)
[2017-12-05] MEDS: ZAFIRLUKAST 20 MG PO SCH ×2 (08:23→20:19)
[2017-12-05] MEDS: D5-1/2NS 1,000 ML IV SCH (08:24)
[2017-12-05] MEDS: HYDROCODONE/APAP 7.5 MG/325 MG TABLET PO PRN ×2 (08:34→18:23)
[2017-12-05] MEDS ORDERED: IPRATROPIUM 0.03% NAS SCH (09:00)
[2017-12-05] MEDS: MOMETASONE/FORMOTEROL 100/5 mcg INHALER ORAL INH SCH (09:30)
--- NOTE | 2017-12-05 09:30 | XRay Report ---
Indication: COUGH, SOA PROCEDURE: XR chest 1V: Encounter: Initial Comparison: December 03, 2017 Findings: The lungs are stable in appearance without new focal airspace consolidation. There is no pleural effusion or pneumothorax. The heart size, pulmonary vascularity and mediastinal contours are unchanged. Right subclavian port. IMPRESSION: Stable appearance of the chest. .
[2017-12-05] MEDS: PHOSPHORUS 250 MG TABLET PO SCH ×2 (12:53→17:38)
--- NOTE | 2017-12-05 15:07 | Progress Note ---
- Date 12/05/17 Subjective: Mr. Bhakta reports persistent feeling of tightness in his chest and wheezing intermittently although his breathing is improved overall. He is on room air and did not require heliox overnight. He denies cough preceding URI/fever symptoms. He's had no nausea or vomiting. Patient has been voiding without difficulty and denies lightheadedness. He cites multiple triggers for asthma exacerbations and reports that transferring out of the ICU typically fails due to increased exposure to multiple staff members/perfumes causing rapid relapse. Objective Vital signs: Temperature 98.2 F 12/05/17 12:00 Pulse Rate 104 H 12/05/17 12:00 Respiratory Rate 36 H 12/05/17 12:00 Blood Pressure 160/88 H 12/05/17 12:00 Pulse Oximetry 95 -RA 12/05/17 12:00 I/O 2130/800 EXAM General-NAD, alert HEENT-conjunctiva clear, sclera anicteric, conjugate gaze, oropharynx clear Lungs-respirations nonlabored with good airflow, no wheezing on auscultation although faint audible wheezing is present at the bedside Cardiac-regular rhythm, S1-S2 Abd-soft, nontender, nondistended, bowel sounds present Ext-without edema Neuro-MAEW Psych-calm, cooperative - Height/Weight/BMI: Height 1.78 m Weight 90.2 kg Body Mass Index 27.7 Results - Labs CBC & Chem 7: 12/04/17 17:46 12/05/17 10:22 Labs: Phosphorus 1.8, magnesium 2.1 - Imaging and Cardiology Chest x-ray Status: image reviewed by me (portable chest x-ray obtained yesterday was unremarkable although film the prior day suggested early infiltrate left base) Assessment and Plan (1) Asthma with exacerbation Current visit: No Status: Acute (2) Community acquired pneumonia Current visit: Yes Status: Suspected Assessment and Plan: Impression: Acute asthma exacerbation/refractory asthma Left lower lobe community-acquired pneumonia-12/03/17 Hypokalemia Hypophosphatemia Hyperglycemia, likely steroid-induced Leukocytosis GERD Plan: Continue Solu-Medrol and antibiotics as previously initiated. The patient continues to describe tight sensation and not yet ready to convert to oral steroids. Monitor peak flows. May have a component of vocal cord dysfunction. Sputum culture to be obtained if cough productive. Replace potassium/phosphorus orally. Monitor blood sugars, corrective insulin as needed. Discontinue D5-1/2NS--> low- volume NS with 20 KCl until patient maintaining good oral intake. Converted to inpatient as will continue to require IV therapies to prevent rapid relapse. Discussed with nursing, case management, and Dr. Solis. DVT Prophylaxis: SCD's, Lovenox GI Prophylaxis: other (Prevacid) Resuscitation Status: Full Code - Physician Narrative Narrative: Date: 12/05/17 Time: 1503 Hospital Course Summary Disclaimer: The visit summary below is not to be considered part of the above Progress Note. Hospital Course: 12/04/17 Mr. Bhakta received an extensive round of treatment in the emergency room and is likely tachycardic secondary to this. He is holding her saturations well and arterial blood gas is reassuring. At the time of seeing him a 2nd time in the emergency room he was 95% on room air with little effort. He was initially to transfer to the ICU but then opted to go to [facility] to see his figure refinisher and repairer but he is unavailable. He will then stay here in our ICU as we do have Dr. Durant available if his pulmonary condition deteriorates. We'll continue aggressive treatment with DuoNeb's, steroids on schedule, epinephrine. Patient is being transferred to the ICU. If the patient requires anxiolysis, I'm preferential to quetiapine or Haldol. I will save benzodiazepines and their analogues for rapid sequencing intubation should it come to this. Treating pain with nonnarcotic medications at this time. For the possibility of pneumonia I'm starting azithromycin IV. He does have a penicillin allergy but cephalosporins for many decades have only incidental crossover with penicillins since the modern manufactured cephalosporins no longer contain trace penicillin. For this reason he will get Rocephin as well, and if there is respiratory difficulty worsening with this, we are prepared for RSI. Patient is being placed in the ICU under observation status 12/05/17 Continue Solu-Medrol and antibiotics as previously initiated. The patient continues to describe tight sensation and not yet ready to convert to oral steroids. Monitor peak flows. May have a component of vocal cord dysfunction. Sputum culture to be obtained if cough productive. Replace potassium/phosphorus orally. Monitor blood sugars, corrective insulin as needed. Discontinue D5-1/2NS--> low- volume NS with 20 [id number] until patient maintaining good oral intake. Converted to inpatient as will continue to require IV therapies to prevent rapid relapse.
[2017-12-05] MEDS ORDERED: INSULIN ASPART 100unit/ml INJECTION SQ PRN (15:14)
[2017-12-05] MEDS ORDERED: NS with KCL 20 mEq 1,000 ML IV SCH (15:30)
[2017-12-05] MEDS: AZITHROMYCIN IV 500 MG in NS 250ml 250 ML IV SCH (20:12)
[2017-12-05] MEDS ORDERED: QUETIAPINE 50 MG TABLET PO SCH (21:00)
[2017-12-06] MEDS: ALBUTEROL/IPRATROPIUM 2.5mg-0.5mg/3ml NEB AEROSOL SCH ×5 (00:11→14:49)
[2017-12-06] MEDS ORDERED: DiphenhydrAMINE 50 MG/ML INJECTION IVP PRN (00:36)
[2017-12-06] MEDS ORDERED: FentaNYL 100 MCG/2 ML INJECTION IVP PRN (00:38)
[2017-12-06] MEDS: ALBUTEROL 2.5mg/3ml (0.083%) NEB AEROSOL PRN (00:39)
[2017-12-06] MEDS ORDERED: ALBUTEROL 2.5mg/3ml (0.083%) NEB AEROSOL PRN (00:40)
[2017-12-06] MEDS: MAGNESIUM SULFATE 1gm PREMIX 1 GM/100 ML BAG IV SCH ×2 (00:53→01:03)
[2017-12-06] MEDS: EPINEPHrine 1mg/ml (1:1000) vial IM PRN ×2 (00:58→01:16)
[2017-12-06] MEDS: MOMETASONE/FORMOTEROL 100/5 mcg INHALER ORAL INH SCH ×2 (01:17→10:04)
[2017-12-06] MEDS ORDERED: KETOROLAC 30 MG/ML INJECTION IVP ONE (01:33)
[2017-12-06] MEDS: METHYLPREDNISOLONE SOD SUCC 125mg/2ml INJECTION IVP SCH ×2 (02:40→08:58)
[2017-12-06] MEDS: OMEPRAZOLE 20 MG CAPSULE PO SCH (05:36)
[2017-12-06] MEDS: HYDROCODONE/APAP 7.5 MG/325 MG TABLET PO PRN ×2 (05:42→12:07)
[2017-12-06] MEDS: PHOSPHORUS 250 MG TABLET PO SCH ×2 (08:59→12:58)
[2017-12-06] MEDS: FUROSEMIDE 20 MG TABLET PO SCH (08:59)
[2017-12-06] MEDS: THEOPHYLLINE 200 MG PO SCH (08:59)
[2017-12-06] MEDS: ZAFIRLUKAST 20 MG PO SCH (09:00)
[2017-12-06] MEDS: GABAPENTIN 600 MG TABLET PO SCH ×2 (09:00→15:40)
[2017-12-06] MEDS: ENOXAPARIN 40 MG/0.4 ML INJECTION SQ SCH (11:01)
[2017-12-06] MEDS ORDERED: PredniSONE 20 MG TABLET PO SCH (15:30)
--- NOTE | 2017-12-06 15:56 | Discharge Summary ---
Discharge Information Date of admission: 12/05/17 15:13 Anticipated date of discharge: 12/06/17 Attending Physician: Angeles River MD Primary care physician: James Chambers DO - Discharge Diagnosis (1) Asthma with exacerbation Status: Acute (2) Community acquired pneumonia Status: Suspected Acute asthma exacerbation/refractory asthma Left lower lobe community-acquired pneumonia-12/03/17 Hypokalemia Hypophosphatemia Hyperglycemia, likely steroid-induced Leukocytosis GERD - Laboratory Labs: On admission (12/04/17) white count 16.1 with 94% neutrophils, 5% lymphocytes, 1 % monocytes, hemoglobin 13.9; potassium 3.4, creatinine 0.9, glucose 247, and magnesium 2.6 Admission blood gas: 7.40/36/88/22 with saturation 97% on room air 12/06/17 04:50 12/06/17 04:50 - Radiology Radiology: Chest x-ray on 12/04/17 demonstrated no evidence of pleural effusion or pneumothorax. Lungs were clear without focal airspace consolidation. Right subclavian port was present. History of Present Illness HPI: Mr. Bhakta is a 52-year-old gentleman who has extensive visits to the emergency room's in [place] for episodes of status asthmaticus. He sees a workforce management analyst in [facility]. He has multiple visits to the emergency room every month for respiratory distress and has an extensive list of bundled medications that he has given on arrival including: tilb-sk-aeil DuoNeb's, epinephrine injection, magnesium, theophylline, Dilaudid, and Ativan. He has been in the emergency room just over 24 hours ago and showed improvement with this treatment prior. He has been having a nagging cough and what sounds as respiratory infectious type of picture (chest discomfort cough, increase in sputum, malaise and subjectively febrile) and returned to the emergency room with essentially a repeat of this treatment regimen. Objective Vital signs: Temperature 97.9 F 12/06/17 11:33 Pulse Rate 90 12/06/17 12:00 Respiratory Rate 18 12/06/17 14:50 Blood Pressure 156/76 H 12/06/17 11:33 Pulse Oximetry 99 12/06/17 14:50 Rhythm: Normal Sinus Rhythm - Constitutional Present: no acute distress, cooperative - Routine Respiratory Exam Present: CTA bilaterally. Absent: accessory muscle use, prolonged expiratory phase, respiratory distress, wheezes Comments: Respirations nonlabored with good airflow. - Routine Cardiovascular Exam Present: RRR - Routine Abdominal Exam Present: soft, non tender Hospital Course This is a general summary of the patient's hospital course. For more details refer to the complete medical record. Hospital course: 12/04/17 Mr. Bhakta received an extensive round of treatment in the emergency room and is likely tachycardic secondary to this. He is holding her saturations well and arterial blood gas is reassuring. At the time of seeing him a 2nd time in the emergency room he was 95% on room air with little effort. He was initially to transfer to the ICU but then opted to go to [facility] to see his workforce management analyst but he is unavailable. He will then stay here in our ICU as we do have Dr. Durant available if his pulmonary condition deteriorates. We'll continue aggressive treatment with DuoNeb's, steroids on schedule, epinephrine. Patient is being transferred to the ICU. If the patient requires anxiolysis, I'm preferential to quetiapine or Haldol. I will save benzodiazepines and their analogues for rapid sequencing intubation should it come to this. Treating pain with nonnarcotic medications at this time. For the possibility of pneumonia I'm starting azithromycin IV. He does have a penicillin allergy but cephalosporins for many decades have only incidental crossover with penicillins since the modern manufactured cephalosporins no longer contain trace penicillin. For this reason he will get Rocephin as well, and if there is respiratory difficulty worsening with this, we are prepared for RSI. Patient is being placed in the ICU under observation status 12/05/17 Continue Solu-Medrol and antibiotics as previously initiated. The patient continues to describe tight sensation and not yet ready to convert to oral steroids. Monitor peak flows. May have a component of vocal cord dysfunction. Sputum culture to be obtained if cough productive. Replace potassium/phosphorus orally. Monitor blood sugars, corrective insulin as needed. Discontinue D5-1/2NS--> low- volume NS with 20 KCl until patient maintaining good oral intake. Converted to inpatient as will continue to require IV therapies to prevent rapid relapse. 12/06/17 Mr. Bhakta reports feeling significantly improved today and feels he is back to his baseline. He was able to ambulate in the halls yesterday evening without difficulty although had increased symptoms just after midnight with dyspnea and wheezing for which he requested treatment with epinephrine, Benadryl, magnesium sulfate, and fentanyl in addition to breathing treatments. Saturation was stable throughout and symptoms subsided after about 60-90 minutes. He's remained asymptomatic since that time with peak flows of 425/475 and 470/480 pre /post treatment today. There is no wheezing on auscultation and air flow is good. Patient feels the exacerbation has broken and he is stable to convert to prednisone and return home at this time. Oxygen saturation 99% on room air prior to discharge. 60 mg of prednisone given orally prior to discharge. Given the absence of infiltrate on chest x-ray on admission will resume doxycycline as previously prescribed. Potassium borderline this morning and patient received 40 mg potassium chloride earlier today. He reports taking potassium daily at home and will continue his usual regimen. He is asked to follow-up with Dr. Chambers in one week and Dr. Wellington as coordinated with his office. Time spent with patient: discharge greater than 30 minutes Resuscitation Status: Full Code Discharge Plan - Discharge Disposition Discharge Date: 12/06/17 Disposition: 01 Discharged Home, Self-Care *Condition: Stable Reason For Visit (Visit label in EMR): acute asthma exacerbation - Discharge Medications *Discharge Medications: New Mometasone/Formoterol 100/5 [DULERA 100/5mcg INHALER] 2 puff ORAL INH RTBID inhaler PredniSONE [Deltasone] 60 mg PO WB #30 tab Continue Quetiapine [Seroquel] 50 mg PO HS Lansoprazole 15 mg PO ACB ALPRAZolam [Xanax] 0.5 mg PO DAILY PRN PRN Reason: Anxiety Albuterol Sulfate [Proair Hfa] 1 spray INH Q4H PRN PRN Reason: Prn Orders Ipratropium 0.03% NASAL SPRAY [Atrovent 0.03% Nasal [place]] 1 spray KELSEY DAILY Hydrocodone/APAP 7.5/325 [[place] 7.5/325] 1 tab PO TID PRN PRN Reason: Pain Gabapentin [Neurontin] 600 mg PO TID Zafirlukast [Accolate] 20 mg PO BID #0 EPINEPHrine Pen [Epipen] 0.3 mg IM O PRN #2 auto.injct PRN Reason: As Needed Albuterol/Ipratropium [Duoneb] 1 unit AEROSOL Q4H Theophylline Anhydrous [Theophylline] 600 mg PO DAILY Cyclobenzaprine [Flexeril] 10 mg PO BID PRN PRN Reason: Muscle Pain Doxycycline [Vibramycin] 100 mg PO BID #14 tab Furosemide [Lasix] 20 mg PO DAILY Discontinued PredniSONE [Deltasone] 40 mg PO WB #10 tab - Discharge Packet/Instructions *Diet: Continue usual diet *Activity: As tolerate *Pain Management/Treatment: Tylenol as needed *Wound Care: Not applicable Additional Instructions: Increase prednisone to 60 mg daily for 4 additional days ( through Monday), then drop dose to 40 mg daily or as instructed by Dr. Wellington and taper further per Dr. Wellington's instructions. Continue doxycycline as previously prescribed. Continue potassium as previously prescribed. Dulera is listed as new medication only due to having not appeared on your home medication list-continue it as you used to previously. No changes made in any of your chronic medications except increased prednisone dose. *Expected Signs/Symptoms: You may experience increased wheezing/dyspnea/cough with activities compared to baseline for several days. *Notify Physician if: Peak flows drop into your red zone or difficulty breathing accelerates significantly. *During Business Hours Contact: Dr. Chambers's office or Dr. Wellington's office *After Business Hours Contact: Call [facility] at [phone] and ask that the on-call physician be paged for Dr. Chambers *Pending Lab/Results: No Pending Lab - Referrals/Follow Up *Referrals/Follow Up: Gallito Wellington MD [Physician] - (Contact his office to schedule follow-up) James Chambers DO [Family Provider] - 1 Week - Patient Handouts - Dismissal Complete Discharge Instructions are:: Complete Physician Narrative - Narrative Attestation Narrative: Date: 12/06/17 Time: 4964
[2017-12-06 17:00] VITALS: BP 139/73; PULSE 95; RESP 28; TEMP 97.8; O2SAT 95
== END 2017-12-06 17:15 | disposition home or self-care (01) | DRG 194 ==
LOC: ED 15:23 → CCU 15:23 → SUATTDRO 19:00
PROVIDERS: ADMIT Family Medicine; ATTEND Internal Medicine